=== PATIENT | male | born 1935 | race Caucasian/White ===

== ENCOUNTER 2016-11-05 14:21 | Emergency (ER) | payer OTHER ==
[~2016-11-05] VITALS: Ht 175.3 cm; Wt 85.0 kg
[~2016-11-05 14:21] MED LIST: ACET-1256 PO; ASPI-428 PO; ATOR-24 PO; CHOL200010 PO; CYAN100020 PO; FAMOCHW27 PO; POLY335025 PO; WARF3TAB PO
[2016-11-05 14:24] VITALS: Ht 175.3 cm; Wt 85.0 kg
[2016-11-05] MEDS ORDERED: XYLOCAINE 1%/SOD BICARB 20 ML VIAL INFIL ONE (15:00)
--- NOTE | 2016-11-05 15:18 | DIAGNOSTIC IMAGING REPORT ---
LEFT FINGER(S) MIN 2 VIEWS ROUTINE CLINICAL HISTORY: L thumb injury - table saw kickback COMPARISON: None FINDINGS: There is dorsal dislocation of the distal phalanx of the left thumb with respect to the proximal phalanx. There is an associated displaced fracture of the head of the proximal phalanx with an associated 1 cm bone fragment. There may be several smaller fracture fragments. IMPRESSION: Dorsal dislocation of the interphalangeal joint of the left thumb with associated displaced fracture of the head of the proximal phalanx. Electronically signed by: Maikol Dover M.D. 11/05/2016 3:17 PM Dictated Date/Time: 11/05/2016 3:15 PM
[2016-11-05 15:19] LABS: INR 2.4 (0.9-1.1); PROTHROMBIN TIME (PATIENT) 26.8 SECONDS (9.0-12.0)
--- NOTE | 2016-11-05 15:33 | EMERGENCY ROOM VISIT NOTE ---
ED Visit Note First contact with patient: 14:44 I did evaluate and examine this patient myself. I did guide management for the patient. I agree with the APC's assessment as discussed. Please see the APC's dictation for further details. I did independently review the x-rays and blood work. His INR is therapeutic. His x-ray demonstrates a fracture dislocation. His wound was repaired and the dislocation reduced. He will follow up closely with orthopedics.
[2016-11-05] MEDS ORDERED: FAMOTIDINE 20 MG TAB PO ONE (15:45)
[2016-11-05] MEDS ORDERED: CEPHALEXIN MONOHYDRATE 250 MG CAP PO ONE (16:00)
[2016-11-05] MEDS ORDERED: CEPH500C PO (16:00)
--- NOTE | 2016-11-05 16:25 | DIAGNOSTIC IMAGING REPORT ---
LEFT FINGER(S) MIN 2 VIEWS ROUTINE CLINICAL HISTORY: L thumb IP reduction COMPARISON: Thumb radiographs performed earlier today. FINDINGS: Improved alignment is noted at the level of the interphalangeal joint of the left thumb status post reduction. However, there is persistent subluxation. A fracture with intra-articular extension of the head of the proximal phalanx is noted. There may be a few additional punctate fracture fragments. IMPRESSION: Persistent mild subluxation but improved alignment of the interphalangeal joint of the left thumb status post reduction. Redemonstration of a fracture of the head of the proximal phalanx of the left thumb with intra-articular extension. Electronically signed by: Maikol Dover M.D. 11/05/2016 4:24 PM Dictated Date/Time: 11/05/2016 4:22 PM
[2016-11-05 17:04] VITALS: BP 155/77; PULSE 61; TEMP 36.6; O2SAT 92
--- NOTE | 2016-11-19 23:55 | EMERGENCY ROOM VISIT NOTE ---
History First contact with patient: 14:44 Chief Complaint: LACERATION/CUT (NON-SUTURE) Stated Complaint: STOVED AND LACERATED LEFT THUMB Nursing Triage Summary: pt here with left thumb lac after hitting it on a saw and piece of wood. History of Present Illness The patient is a 81 year old male who presents to the Emergency Room with complaints of an injury to his left thumb. The patient reports that he was using a table saw to cut wood when the wood angled on a table, causing it to kick back and hyperextended his thumb. The patient believes that the wound or saw never cut his finger, but that the skin split from the thumb being thrown back. The patient does report moderate bleeding from the wound. He is on Coumadin. His reports that his INR's are relatively stable, but is requesting that we recheck his INR today because of the swelling and bruising of the thumb. The patient denies any pain around the base of the thumb or hand. He reports mild paresthesias of the tip of the thumb. Tetanus immunization is up-to-date. The patient is [id number], and rates his discomfort a 4 out of 10. He did take Tylenol 1000 mg prior to arrival. Review of Systems 10 system review was performed and was negative except for pertinent positives and negatives as indicated in history of present illness Past Medical/Surgical History Medical Problems: (1) Higgins's Esophagus (2) Diaphragmatic Hernia (3) Diverticulosis Colon (W/O Ment Of Hemorrhage) (4) Enlarged Prostate Without Lower Urinary Tract Symptoms (5) History of DVT (deep vein thrombosis) (6) Hyperlipidemia, Unspecified (7) Hypertension Nos (8) Multiple Fractures Of Ribs, Right Side, Init For Clos Fx (9) Oth Fracture Of First Thoracic Vertebra, Init For Clos Fx (10) Traumatic Hemothorax, Initial Encounter (11) Vitamin D Deficiency, Unspecified Family History Diabetes mellitus Heart disease Social History Smoking Status: Never Smoker Marital Status: Housing Status: lives with significant other Occupation Status: employed Current/Historical Medications Scheduled Aspirin (Ecotrin Low Strength), 81 MG PO 3XWK Atorvastatin (Lipitor), 40 MG PO QPM Cephalexin Monohydrate (Keflex), 500 MG PO TID Cholecalciferol (Vitamin D), 2,000 UNITS PO QPM Warfarin Sodium (Coumadin), 3 MG PO DAILY Scheduled PRN Acetaminophen (Tylenol), 1,000 MG PO [id number] PRN for Pain Cyanocobalamin (Vitamin B12), 1,000 MCG PO for SUPPLEMENT Famotidine-Calcium Carbonate-M (Pepcid Complete), 1 TAB PO DAILY PRN for Heartburn Polyethylene Glycol 3350 (Miralax), 17 GM PO DAILY PRN for Constipation Allergies Coded Allergies: No Known Allergies (Unverified , 11/11/16) Physical Exam Vital Signs Date Time Temp Pulse Resp B/P (MAP) Pulse Ox O2 Delivery O2 Flow Rate FiO2 11/05/16 17:04 36.6 61 16 155/77 92 11/05/16 17:03 61 16 155/77 92 Room Air 11/05/16 14:24 36.6 62 16 173/80 92 Room Air Physical Exam CONSTITUTIONAL: Healthy and well nourished. Alert and oriented X 3 with positive affect. Patient does not appear in any acute distress. HEENT: Normocephalic, atraumatic. Pupils equal, round and reactive. NECK: Full active range of motion without discomfort. MUSCULOSKELETAL: Examination of the left thumb shows a 2 cm laceration along the radial aspect of the proximal phalanx. He has mild bleeding. The fingertip is edematous and ecchymotic with delayed capillary refill. The patient has no focal tenderness to palpation of the IP collateral ligaments or MCP region. INTEGUMENTARY: No rash or other significant dermatologic conditions noted. NEUROLOGIC: Left thumb tip is grossly sensory intact. Medical Decision & Procedures ER Provider Diagnostic Interpretation: My interpretation of left thumb x-rays shows a dorsal IP joint dislocation with associated fracture of the distal aspect of the proximal phalanx. Radiologist report is as follows: LEFT FINGER(S) MIN 2 VIEWS ROUTINE CLINICAL HISTORY: L thumb injury - table saw kickback COMPARISON: None FINDINGS: There is dorsal dislocation of the distal phalanx of the left thumb with respect to the proximal phalanx. There is an associated displaced fracture of the head of the proximal phalanx with an associated 1 cm bone fragment. There may be several smaller fracture fragments. IMPRESSION: Dorsal dislocation of the interphalangeal joint of the left thumb with associated displaced fracture of the head of the proximal phalanx. Post reduction x-ray shows a mild persistent IP subluxation with intra- articular fracture of the head of the proximal phalanx.. Radiologist report is as follows: LEFT FINGER(S) MIN 2 VIEWS ROUTINE CLINICAL HISTORY: L thumb IP reduction COMPARISON: Thumb radiographs performed earlier today. FINDINGS: Improved alignment is noted at the level of the interphalangeal joint of the left thumb status post reduction. However, there is persistent subluxation. A fracture with intra-articular extension of the head of the proximal phalanx is noted. There may be a few additional punctate fracture fragments. IMPRESSION: Persistent mild subluxation but improved alignment of the interphalangeal joint of the left thumb status post reduction. Redemonstration of a fracture of the head of the proximal phalanx of the left thumb with intra-articular extension. Laboratory Results Test 11/05/16 15:05 Prothrombin Time 26.8 SECONDS (9.0-12.0) Prothromb Time International Ratio 2.4 (0.9-1.1) Medications Administered Medications (Trade) Dose Ordered Sig/Js Route Start Time Stop Time Status Last Admin Dose Admin Famotidine (Pepcid Tab) 20 mg NOW ONCE PO 11/05/16 15:45 11/05/16 15:46 DC 11/05/16 15:38 20 MG Cephalexin Monohydrate (Keflex Cap) 500 mg NOW ONCE PO 11/05/16 16:00 11/05/16 16:01 DC 11/05/16 16:14 500 MG Procedure Thumb laceration repair was performed under digital block anesthesia after receiving verbal consent from the patient. Using buffered 1% lidocaine without epinephrine, good digital block anesthesia was administered. The wound was then peripherally cleansed with iodine, then copiously pressure irrigated with 150 mL of normal saline. Exploration of the wound does not show any foreign debris. The wound was then grossly approximated using 4-0 nylon simple interrupted sutures. A bacitracin pressure dressing was applied. ED Course Patient history and physical exam were performed. Nurse's notes were reviewed. Vital signs were reviewed and normal. The patient refused any analgesics. Labs were drawn with an INR of 2.4. X-rays of the left thumb confirms an IVP dislocation with fracture of the head of the proximal phalanx. Left thumb laceration repair was performed under digital block anesthesia. I. Adduction was performed with post reduction x-ray showing a mild persistent subluxation and intra-articular extension of the proximal phalanx. The patient was instructed to keep the wound clean and dry. The patient was provided additional verbal and written wound care instructions. Ice and elevation for swelling. Tylenol as needed for pain. The patient refused any stronger prescription analgesics. The patient was provided a prescription for Keflex, and instructed to follow-up with Dr. Wheeler for further reevaluation and management. The patient was happy with plan of care, voiced understanding of all discharge instructions, and denied any pain at the time of discharge. The patient was also seen and examined by Dr. Landrum, ED attending physician, who agrees with workup and plan of care. Medical Decision Impression Primary Impression: Open fracture dislocation of interphalangeal joint of left thumb Departure Information Prescriptions Cephalexin Monohydrate (Keflex) 500 Mg Cap 500 MG PO TID, #21 CAP Prov: Keagan Mercer PA 11/05/16 Referrals Ray Wu M.D. (PCP) Patient Instructions [facility] Problem Qualifiers Primary Impression: Open fracture dislocation of interphalangeal joint of left thumb Encounter type: initial encounter Qualified Codes: S62.502B - Fracture of unspecified phalanx of left thumb, initial encounter for open fracture
== END 2016-11-05 17:04 | disposition home or self-care (01) ==
LOC: C.EDB 14:24 → C.EDD 17:04
DX: S62.522B Displaced fracture of distal phalanx of left thumb, initial encounter for open fracture (principal); W22.8XXA Striking against or struck by other objects, initial encounter; K22.70 Barrett's esophagus without dysplasia; K57.30 Diverticulosis of large intestine without perforation or abscess without bleeding; N40.0 Benign prostatic hyperplasia without lower urinary tract symptoms; Z86.718 Personal history of other venous thrombosis and embolism; E78.5 Hyperlipidemia, unspecified; I10 Essential (primary) hypertension; E55.9 Vitamin D deficiency, unspecified; Z83.3 Family history of diabetes mellitus; Z82.49 Family history of ischemic heart disease and other diseases of the circulatory system; Z79.01 Long term (current) use of anticoagulants; Z79.82 Long term (current) use of aspirin; Z79.899 Other long term (current) drug therapy

== ENCOUNTER → 2016-11-11 | Day surgery (SDC) | payer OTHER ==
[2016-11-09 15:38] LABS: BASO % 0.5 %; BASO ABS # 0.03 K/uL (0-0.2); COMPLETE YES; EOS % 2.4 %; HEMATOCRIT 40.8 % (42-52); IG% 0.2 %; LYMPH % 30.8 %; LYMPH ABS # 1.69 K/uL (1.2-3.4); MEAN CELL VOLUME 93.2 fL (80-100); MEAN CORPUSCULAR HEMOGLOBIN 30.6 pg (25-34); MEAN CORPUSCULAR HGB CONC 32.8 g/dl (32-36); MEAN PLATELET VOLUME 8.8 fL (7.4-10.4); MONO % 13.9 %; NEUT % 52.2 %; PLATELET COUNT 194 K/uL (130-400); RED BLOOD COUNT 4.38 M/uL (4.7-6.1); WHITE BLOOD COUNT 5.48 K/uL (4.8-10.8)
--- NOTE | 2016-11-09 15:46 | DIAGNOSTIC IMAGING REPORT ---
TWO VIEW CHEST CLINICAL HISTORY: Preoperative examination. FINDINGS: PA and lateral chest radiographs are compared to study dated 04/04/2015 and correlated with chest CT dated 04/24/2015. The heart is enlarged and there is atherosclerotic calcification of the thoracic aorta. The pulmonary vasculature is noncongested. The lungs and pleural spaces are clear. There is no pneumothorax. The skeletal structures are osteopenic. There are healed right-sided rib fractures. IMPRESSION: Cardiac enlargement with no active disease in the chest. Electronically signed by: Edu Prieto M.D. 11/09/2016 3:45 PM Dictated Date/Time: 11/09/2016 3:37 PM
[2016-11-09 15:49] LABS: INR 2.2 (0.9-1.1); PARTIAL THROMBOPLASTIN RATIO 1.4; PROTHROMBIN TIME (PATIENT) 24.3 SECONDS (9.0-12.0)
[2016-11-09 16:06] LABS: BLOOD UREA NITROGEN 17 mg/dl (7-18); BUN/CREATININE RATIO 15.4 (10-20); CALCIUM 9.4 mg/dl (8.5-10.1); CARBON DIOXIDE 26 mmol/L (21-32); CHLORIDE 107 mmol/L (98-107); GLUCOSE 124 mg/dl (70-99); SODIUM 139 mmol/L (136-145)
[2016-11-10 18:05] VITALS: BMI 26.0
[~2016-11-11] VITALS: Ht 177.8 cm; Wt 84.0 kg
[~2016-11-11] MED LIST changes: +ACETAMINOPHEN 500 MG TAB PO SCH; +ATROPINE SULFATE 0.1 MG/ML 5ML SYR IV PRN; +BUPIVACAINE 0.25% 30 ML VIAL ONE; +CEFAZOLIN 2000 MG/60 ML D5W 60 ML IV SCH; +CEPH500C PO; +CONRAY 60% 50 ML VIAL ONE; +DEXAMETHASONE SOD INJ 4 MG/ML VIAL ONE; +EpHEDrine SULFATE INJ 50 MG/ML AMP IV PRN; +FENTANYL CITRATE INJ 50 MCG/1 ML 2 ML VIAL IV PRN; +FENTANYL CITRATE INJ 50 MCG/1 ML 2 ML VIAL ONE; +GLYCOPYRROLATE INJ 0.2 MG/ML VIAL ONE; +HYDROCODONE/ACETAMOPHEN 5/325MG TAB PO PRN; +HYDROmorphone INJ 1 MG/ML SYR IV PRN; +LACTATED RINGER'S 1000ML 1,000 ML IV SCH; +LIDOCAINE HCL 2% 2 ML VIAL (20MG/ML) ONE; +LIDOCAINE HCL 2% LOCAL 50ML VIAL ONE; +ONDANSETRON INJ 2 MG/ML 2 ML VIAL IV PRN; +ONDANSETRON INJ 2 MG/ML 2 ML VIAL ONE; +PROPOFOL IV EMULSION 10 MG/ML 20 ML VIAL IV ONE; +SODIUM CHLORIDE 0.9% 1000ML 1,000 ML IV SCH
[2016-11-11 05:35] VITALS: BP 156/79; PULSE 65; TEMP 36.6; O2SAT 97; Ht 177.8 cm; Wt 84.0 kg
[2016-11-11 06:06] LABS: INR 2.3 (0.9-1.1); PARTIAL THROMBOPLASTIN RATIO 1.4; PROTHROMBIN TIME (PATIENT) 25.6 SECONDS (9.0-12.0)
--- NOTE | 2016-11-11 06:46 | History and Physical ---
History & Physical Date Nov 11, 2016. Chief Complaint Fracture Dislocation Left Thumb History of Present Illness The patient is a 81 year old male with complaints of Past Medical/Surgical History Medical Problems: (1) Higgins's Esophagus (2) Diaphragmatic Hernia (3) Diverticulosis Colon (W/O Ment Of Hemorrhage) (4) Enlarged Prostate Without Lower Urinary Tract Symptoms (5) History of DVT (deep vein thrombosis) (6) Hyperlipidemia, Unspecified (7) Hypertension Nos (8) Multiple Fractures Of Ribs, Right Side, Init For Clos Fx (9) Oth Fracture Of First Thoracic Vertebra, Init For Clos Fx (10) Traumatic Hemothorax, Initial Encounter (11) Vitamin D Deficiency, Unspecified Additional History Hepatic Disease: No Endocrine Disorder: No Kidney Disease: No Hypertension: No Heart Disease: No Bleeding Tendencies: No Infectious Diseases: No Allergies Coded Allergies: No Known Allergies (Unverified , 11/11/16) Home Medications Scheduled Aspirin (Ecotrin Low Strength), 81 MG PO 3XWK Atorvastatin (Lipitor), 40 MG PO QPM Cephalexin Monohydrate (Keflex), 500 MG PO TID Cholecalciferol (Vitamin D), 2,000 UNITS PO QPM Warfarin Sodium (Coumadin), 3 MG PO DAILY Scheduled PRN Acetaminophen (Tylenol), 1,000 MG PO Q1T-D4E PRN for Pain Cyanocobalamin (Vitamin B12), 1,000 MCG PO for SUPPLEMENT Famotidine-Calcium Carbonate-M (Pepcid Complete), 1 TAB PO DAILY PRN for Heartburn Polyethylene Glycol 3350 (Miralax), 17 GM PO DAILY PRN for Constipation Physical Examination Skin: warm/dry, no rash Eyes: normal inspection, EOMI, sclerae normal ENT: normal ENT inspection, pharynx normal Head: normocephalic, atraumatic Neck: supple, no adenopathy, trachea midline Respiratory/Chest: lungs clear, normal breath sounds, no respiratory distress Cardiovascular: regular rate, rhythm, no edema, no murmur Abdomen / GI: normal bowel sounds, non tender Back: normal inspection Extremities: normal inspection, normal range of motion Neurologic/Psych: no motor/sensory deficits, alert, normal reflexes, oriented x 3 Diagnosis Fracture Dislocation Left Thumb Plan of Treatment Closed Reduction percutaneous pinning Left Thumb
--- NOTE | 2016-11-11 06:47 | History & Physical Bridge Note ---
H&P Re-Evaluation Bridge Note: I have examined the patient, reviewed the History & Physical and in the interval since the performance of the History & Physical I have noted the following changes of clinical significance: No changes noted
--- NOTE | 2016-11-11 07:39 | DIAGNOSTIC IMAGING REPORT ---
LEFT FINGER(S) MIN 2 VIEWS ROUTINE CLINICAL HISTORY: 81 years-old Male presenting with LEFT CLOSED REDUCTION WITH K-WIRE. TECHNIQUE: 2 fluoroscopic spot images were obtained as part of an intraoperative procedure. COMPARISON: 11/05/2016. FINDINGS/IMPRESSION: Interval pin fixation across the distal interphalangeal joint of the left thumb. Fracture of the head of the proximal phalanx of the left thumb is not as well-demonstrated on these fluoroscopic images. Please see separately dictated operative report for further details. Electronically signed by: John Thomas 11/11/2016 7:37 AM Dictated Date/Time: 11/11/2016 7:36 AM
--- NOTE | 2016-11-11 07:39 | Discharge Instructions ---
Discharge Instructions Date of Service Nov 11, 2016. Admission Reason for Admission: Open Fracture Thumb Proximal Phalanx Left Discharge Discharge Diagnosis / Problem: SAME ABOVE Discharge Goals Goal(s): Decrease discomfort, Improve function Activity Recommendations Activity Limitations: as noted below Lifting Limitations: until after follow-up appointment Exercise/Sports Limitations: until after follow-up appointment Shower/Bathe: keep incision dry . Instructions / Follow-Up Instructions / Follow-Up MEDICATIONS: * Resume previous medications unless instructed otherwise by your surgeon. * Always take pain medication on a full stomach or with food to avoid upset stomach. * Do not drink alcohol or drive while taking narcotics. * Ibuprofen or Tylenol may be taken if narcotic not needed. SPECIAL CARE INSTRUCTIONS: __ None _X_ Keep extremity elevated and iced x 48 hours; apply ice 20-30 minutes 8-10 times/day. May remove at night. __ Sling __24 hrs/day __ Remove at night __ Shoulder Immobilizer __ 24 hrs/day __ Remove at night _X_ Dressing _X_ Maintain until seen in office, may shower with plastic over site __ Remove dressings in 24-48 hours and then may shower __ Cover incisions with band-aids after showering __ Do not remove steri-strips Call physician if chills or temperature rises above 102 degrees or pain unrelieved by prescribed pain medications at . . Current Hospital Diet Patient's current hospital diet: Discharge Diet Recommended Diet: Regular Diet Fluid Restriction: None Procedures Procedures Performed: Left Closed Reduction with Percutaneous Pinning of Thumb, Pending Studies Studies pending at discharge: no Medical Emergencies . Who to Call and When: Medical Emergencies: If at any time you feel your situation is an emergency, please call 911 immediately. . Non-Emergent Contact Non-Emergency issues call your: Primary Care Provider Call Non-Emergent contact if: you have a fever, temperature is above 101.5 . "Provider Documentation" section prepared by Eh Gonsalez. . VTE Core Measure Inpt VTE Proph given/why not?: Treatment not indicated
--- NOTE | 2016-11-11 07:42 | [facility] Post Operative Brief Note ---
Immediate Operative Summary Operative Date Nov 11, 2016. Pre-Operative Diagnosis Fracture Dislocation Left Thumb Post-Operative Diagnosis Fracture Dislocation Left Thumb Procedure(s) Performed Left Closed Reduction with Percutaneous Pinning of Thumb, Surgeon Dr. Silas Sandoval Communication Analyst Surgeon(s) Dragan Gonsalez PA-C Estimated Blood Loss 5ml Findings as above Specimens None per surgeon Complication(s) None Disposition Recovery Room / PACU
--- NOTE | 2016-11-11 08:06 | Anesthesiology Progress Note ---
Anesthesia Post Op Note Date & Time Nov 11, 2016 at 08:06 Vital Signs Pain Intensity: 0 Vital Signs Past 12 Hours Date Time Temp Pulse Resp B/P (MAP) Pulse Ox O2 Delivery O2 Flow Rate FiO2 11/11/16 08:00 58 13 112/61 96 Room Air 11/11/16 07:50 56 13 105/68 94 Room Air 11/11/16 07:46 66 122/72 98 11/11/16 07:38 36.2 66 141/76 98 11/11/16 05:35 36.6 65 18 156/79 (104) 97 Room Air Notes Mental Status: alert / awake / arousable, participated in evaluation Pt Amnestic to Procedure: Yes Nausea / Vomiting: adequately controlled Pain: adequately controlled Airway Patency, RR, SpO2: stable & adequate BP & HR: stable & adequate Hydration State: stable & adequate Anesthetic Complications: no major complications apparent
[2016-11-11 08:32] VITALS: BP 134/63; PULSE 63; TEMP 36.6; O2SAT 95
[2016-11-11 08:55] VITALS: BP 143/67; PULSE 58; O2SAT 95
[2016-11-11 09:25] VITALS: BP 143/67; PULSE 56; TEMP 36.7; O2SAT 94
--- NOTE | 2016-11-15 14:37 | OPERATIVE REPORT ---
PREOPERATIVE DIAGNOSIS: Fracture dislocation of the left thumb IP joint. POSTOPERATIVE DIAGNOSIS: Same. PROCEDURE: Closed reduction and percutaneous pinning of the left IP joint and proximal phalanx. SURGEON: Dr. Silas Sandoval. ROLL FORMING SUPERVISOR: Dragan Gonsalez PA-C, whose assistance was necessary for helping hold the reduction and positioning the hand. ANESTHESIA: General. COMPLICATIONS: None. CONDITION: Stable to PACU. INDICATIONS: Sunil is a pleasant 81-year-old male who sustained an injury to his left thumb about 6 days ago. He had a fracture dislocation of the IP joint and went to the emergency room. He was placed in a splint and presented to my office. After reviewing the x-rays we decided to proceed with closed reduction and a percutaneous pinning. On November 11, 2016, he arrived at [facility] for the above procedure. He was seen in the preoperative holding area and the operative extremity was identified and signed. He was given a preoperative antibiotic, taken back to the operating room, laid on the table in the supine position, and put under general anesthesia. The left hand was then prepped and draped in sterile fashion. Time-out was done. The patient and operative extremity was properly identified. Fluoroscopy was brought in and the IP joint was easily reduced. A single K-wire was placed percutaneously through the fracture fragment and into the shaft of the proximal phalanx. Appropriate placement was checked on orthogonal fluoroscopic images. Final x-rays were then taken. I was happy with the alignment and the reduction. The pin was then cut and he was placed in a splint. He was then extubated, transferred to a [facility] and taken to the postanesthesia care unit in stable condition. He tolerated the procedure well.
== END | disposition home or self-care (01) ==
LOC: C.ACU 05:00
PROVIDERS: ATTEND Orthopaedic Surgery
DX: S62.512A Displaced fracture of proximal phalanx of left thumb, initial encounter for closed fracture (principal); X58.XXXA Exposure to other specified factors, initial encounter; I10 Essential (primary) hypertension; E78.5 Hyperlipidemia, unspecified; E55.9 Vitamin D deficiency, unspecified; K22.70 Barrett's esophagus without dysplasia; K44.9 Diaphragmatic hernia without obstruction or gangrene; N40.0 Benign prostatic hyperplasia without lower urinary tract symptoms; Z86.718 Personal history of other venous thrombosis and embolism; Z79.01 Long term (current) use of anticoagulants; Z79.82 Long term (current) use of aspirin; Z79.899 Other long term (current) drug therapy

== ENCOUNTER → 2016-11-19 | Outpatient (CLI) | payer OTHER ==
[~2016-11-19] MED LIST changes: -ACETAMINOPHEN 500 MG TAB PO SCH; -ATROPINE SULFATE 0.1 MG/ML 5ML SYR IV PRN; -BUPIVACAINE 0.25% 30 ML VIAL ONE; -CEFAZOLIN 2000 MG/60 ML D5W 60 ML IV SCH; -CONRAY 60% 50 ML VIAL ONE; -DEXAMETHASONE SOD INJ 4 MG/ML VIAL ONE; -EpHEDrine SULFATE INJ 50 MG/ML AMP IV PRN; -FENTANYL CITRATE INJ 50 MCG/1 ML 2 ML VIAL IV PRN; -FENTANYL CITRATE INJ 50 MCG/1 ML 2 ML VIAL ONE; -GLYCOPYRROLATE INJ 0.2 MG/ML VIAL ONE; -HYDROCODONE/ACETAMOPHEN 5/325MG TAB PO PRN; -HYDROmorphone INJ 1 MG/ML SYR IV PRN; -LACTATED RINGER'S 1000ML 1,000 ML IV SCH; -LIDOCAINE HCL 2% 2 ML VIAL (20MG/ML) ONE; -LIDOCAINE HCL 2% LOCAL 50ML VIAL ONE; -ONDANSETRON INJ 2 MG/ML 2 ML VIAL IV PRN; -ONDANSETRON INJ 2 MG/ML 2 ML VIAL ONE; -PROPOFOL IV EMULSION 10 MG/ML 20 ML VIAL IV ONE; -SODIUM CHLORIDE 0.9% 1000ML 1,000 ML IV SCH
--- NOTE | 2016-11-19 11:05 | DIAGNOSTIC IMAGING REPORT ---
LEFT WRIST MIN 3 VIEWS ROUTINE CLINICAL HISTORY: LEFT WRIST PAIN pain COMPARISON: None. DISCUSSION: Moderate degenerative change of the first carpometacarpal joint. Mild degenerative change of the intercarpal region. No acute bony abnormality. Mild soft tissue edema. No evidence for fracture or dislocation. IMPRESSION: Mild/moderate degenerative change. Mild soft tissue edema. No acute bony abnormality. The above report was generated using voice recognition software. It may contain grammatical, syntax or spelling errors. Electronically signed by: Danielito Gordon M.D. 11/19/2016 11:04 AM Dictated Date/Time: 11/19/2016 11:03 AM
== END | disposition home or self-care (01) ==
LOC: C.RAD 10:34
PROVIDERS: ATTEND Physician Assistant
DX: M25.532 Pain in left wrist (principal)

== ENCOUNTER → 2016-12-20 | Outpatient (CLI) | payer OTHER ==
[2016-12-20 17:39] LABS: BASO % 0.8 %; BASO ABS # 0.04 K/uL (0-0.2); COMPLETE YES; EOS % 2.5 %; HEMATOCRIT 39.3 % (42-52); LYMPH % 33.3 %; MEAN CORPUSCULAR HEMOGLOBIN 30.1 pg (25-34); MEAN CORPUSCULAR HGB CONC 32.1 g/dl (32-36); MEAN PLATELET VOLUME 9.5 fL (7.4-10.4); MONO % 11.4 %; PLATELET COUNT 189 K/uL (130-400); RED BLOOD COUNT 4.18 M/uL (4.7-6.1)
[2016-12-20 17:47] LABS: BLOOD UREA NITROGEN 21 mg/dl (7-18); BUN/CREATININE RATIO 21.1 (10-20); CALCIUM 8.8 mg/dl (8.5-10.1); CARBON DIOXIDE 24 mmol/L (21-32); CHLORIDE 108 mmol/L (98-107); GLUCOSE 129 mg/dl (70-99); POTASSIUM 3.9 mmol/L (3.5-5.1); SODIUM 139 mmol/L (136-145); URIC ACID 5.8 mg/dl (2.6-7.2)
[2016-12-20 17:58] LABS: ALB/GLOB RATIO 0.9 (0.9-2); ALKALINE PHOSPHATASE 88 U/L (45-117); ALT/SGPT 34 U/L (12-78); AST/SGOT 33 U/L (15-37); CHOLESTEROL 130 mg/dl (0-200); CHOLESTEROL/HDL RATIO 2.4; FERRITIN 159.5 ng/ml (8.0-388.0); HDL CHOLESTEROL 54 mg/dl; LDL CHOLESTEROL CALCULATED 51 mg/dl; TRIGLYCERIDES 125 mg/dl (0-150); VERY LOW DENSITY LIPOPROT CALC 25 mg/dl
[2016-12-21 07:00] LABS: ESTIMATED AVERAGE GLUCOSE 131 mg/dl; HA1C FLAG Normal (Normal)
--- NOTE | 2016-12-27 06:18 | CODING QUERY MEDICAL NECESSITY ---
SUPPORTING DIAGNOSIS NEEDED Dr. Wu, A supporting diagnosis is required for the test/procedure performed on this patient in order for us to be reimbursed by the patient's insurance. Please provide a supporting diagnosis for the following test/procedure listed below next to the test name along with your signature. *If there is no additional diagnosis for this patient that would support the following test/procedure please document that below next to the test/procedure. Test(s)/Procedure(s) that require a supporting diagnosis: * ([id number]) B12 VITAMIN LEVEL DIAGNOSIS: DATE OF SERVICE: 12/20/16 Provider Signature: Date: Thank you Zelalem Lam [facility] Information Management Once completed, please kindly fax back to [phone] For questions please call [phone]
== END | disposition home or self-care (01) ==
LOC: C.LABPBG 13:41
PROVIDERS: ATTEND Internal Medicine Geriatric Medicine
DX: R73.9 Hyperglycemia, unspecified (principal); D64.9 Anemia, unspecified; E78.5 Hyperlipidemia, unspecified; E55.9 Vitamin D deficiency, unspecified; M10.9 Gout, unspecified

== ENCOUNTER → 2017-06-23 | Outpatient (CLI) | payer OTHER ==
[~2017-06-23] MED LIST changes: -CEPH500C PO
[2017-06-23 13:33] LABS: BASO % 1.1 %; BASO ABS # 0.05 K/uL (0-0.2); EOS % 2.6 %; EOS ABS # 0.12 K/uL (0-0.5); HEMATOCRIT 39.3 % (42-52); HEMOGLOBIN 13.4 g/dL (14.0-18.0); LYMPH % 32.4 %; LYMPH ABS # 1.48 K/uL (1.2-3.4); MEAN CELL VOLUME 94.5 fL (80-100); MEAN CORPUSCULAR HEMOGLOBIN 32.2 pg (25-34); MEAN CORPUSCULAR HGB CONC 34.1 g/dl (32-36); MEAN PLATELET VOLUME 9.6 fL (7.4-10.4); MONO % 16.4 %; MONO ABS # 0.75 K/uL (0.11-0.59); NEUT % 47.5 %; NEUT ABS # 2.17 K/uL (1.4-6.5); PLATELET COUNT 169 K/uL (130-400); RED CELL DISTRIBUTION WIDTH CV 13.2 % (11.5-14.5); RED CELL DISTRIBUTION WIDTH SD 45.7 fL (36.4-46.3); WHITE BLOOD COUNT 4.57 K/uL (4.8-10.8)
[2017-06-23 13:43] LABS: ALBUMIN 3.9 gm/dl (3.4-5.0); ALT/SGPT 56 U/L (12-78); AST/SGOT 60 U/L (15-37); BLOOD UREA NITROGEN 17 mg/dl (7-18); CALCIUM 9.5 mg/dl (8.5-10.1); CARBON DIOXIDE 27 mmol/L (21-32); CREATININE 1.27 mg/dl (0.60-1.40); GLUCOSE 93 mg/dl (70-99); POTASSIUM 3.9 mmol/L (3.5-5.1); SODIUM 137 mmol/L (136-145)
[2017-06-23 13:58] LABS: ALKALINE PHOSPHATASE 87 U/L (45-117); TOTAL PROTEIN 7.9 gm/dl (6.4-8.2)
[2017-06-26 11:05] LABS: BETA-2-MICROGLOBULIN 852 2.87 MG/L (0.00-2.51)
== END | disposition home or self-care (01) ==
LOC: C.LABPBG 10:00
PROVIDERS: ATTEND Internal Medicine Hematology & Oncology
DX: D64.9 Anemia, unspecified (principal)

== ENCOUNTER 2017-12-26 16:20 | Emergency (ER) | payer OTHER ==
[~2017-12-26] VITALS: Ht 175.3 cm; Wt 84.0 kg
[2017-12-26 16:29] VITALS: TEMP 36.4; Ht 175.3 cm; Wt 84.0 kg
--- NOTE | 2017-12-26 17:09 | EMERGENCY ROOM VISIT NOTE ---
History Report prepared by Devante: Hans Bridges Under the Supervision of: Dr. Jaden Badillo M.D. First contact with patient: 16:33 Chief Complaint: CONSTIPATION Stated Complaint: BOWL PROBLEM Nursing Triage Summary: pt arrives reporting trouble with bowel movements and minimal urination reports pt was given enemas, mag citrate, and suppositories pt reports feeling "rumblings in my stomach." History of Present Illness The patient is a 82 year old white male with a history of Diaphragmatic Hernia, Diverticulosis, Enlarged Prostate, HTN, Hyperlipidemia, and DVT who presents to the Emergency Room with complaints of constipation x1 week. The patient states he has been constipated over the last week. He notes he has tried stool softeners and manual disimpaction, with minimal relief. He notes he does produce some liquid stool, but denies any solid bowel movements. The patient denies abdominal pain, fever, chills, nausea, vomiting, or any other complaints. Source of History: patient Onset: x1 week Symptom Intensity: moderate Timing: constant Associated Symptoms: No fevers, No chills, No nausea, No vomiting, No abdominal pain, No diarrhea, No urinary symptoms Review of Systems See HPI for pertinent positives and negatives. A total of ten systems were reviewed and were otherwise negative. Constitutional: No fever, No chills Abdomen: + constipation, No pain, No nausea, No vomiting, No diarrhea Past Medical & Surgical Medical Problems: (1) Higgins's Esophagus (2) Diaphragmatic Hernia (3) Diverticulosis Colon (W/O Ment Of Hemorrhage) (4) Enlarged Prostate Without Lower Urinary Tract Symptoms (5) History of DVT (deep vein thrombosis) (6) Hyperlipidemia, Unspecified (7) Hypertension Nos (8) Multiple Fractures Of Ribs, Right Side, Init For Clos Fx (9) Oth Fracture Of First Thoracic Vertebra, Init For Clos Fx (10) Traumatic Hemothorax, Initial Encounter (11) Vitamin D Deficiency, Unspecified Family History Diabetes mellitus Heart disease Social History Smoking Status: Never Smoker Marital Status: Housing Status: lives with significant other Occupation Status: employed Current/Historical Medications Scheduled Aspirin (Ecotrin Low Strength), 81 MG PO 3XWK Atorvastatin (Lipitor), 40 MG PO QPM Cholecalciferol (Vitamin D), 2,000 UNITS PO QPM Warfarin Sodium (Coumadin), 3 MG PO DAILY Scheduled PRN Acetaminophen (Tylenol), 1,000 MG PO [id number] PRN for Pain Cyanocobalamin (Vitamin B12), 1,000 MCG PO for SUPPLEMENT Famotidine-Calcium Carbonate-M (Pepcid Complete), 1 TAB PO DAILY PRN for Heartburn Polyethylene Glycol 3350 (Miralax), 17 GM PO DAILY PRN for Constipation Allergies Coded Allergies: No Known Allergies (Unverified , 12/26/17) Physical Exam Vital Signs Date Time Temp Pulse Resp B/P (MAP) Pulse Ox O2 Delivery O2 Flow Rate FiO2 12/26/17 19:51 101 18 150/80 95 12/26/17 17:55 91 18 155/93 95 Room Air 12/26/17 16:29 36.4 90 20 159/88 96 Room Air Physical Exam GENERAL: Awake, alert, well-appearing, NAD HENT: Normocephalic, atraumatic. EYES: Normal conjunctiva. Sclera non-icteric. PERRL. No anisocoria. NECK: Supple. No nuchal rigidity. FROM. RESPIRATORY: CTAB, no rhonchi, wheezing, crackles CARDIAC: RRR, no MRG ABDOMEN: Soft, NTND, BS+ MSK: No chest wall TTP, no LE edema NEURO: GCS 15, CN 2-12 intact, moves all 4s on command SKIN: No rash or jaundice noted. RECTAL: large quantity of hard-formed stool in the vault which was removed; no gross blood; no dark or tarry stool. Medical Decision & Procedures ER Provider Diagnostic Interpretation: Radiology results as stated below per my review and radiologist interpretation: KUB CLINICAL HISTORY: Constipation. FINDINGS: 2 AP supine abdominal radiographs are correlated with abdominal CT dated 04/04/2015. There is a nonobstructed abdominal bowel gas pattern. No evidence of intraperitoneal free air is seen on these supine images. There is moderate constipation with rectosigmoid fecal impaction. There are no abnormal abdominal calcifications. Phleboliths are observed in the pelvis. The skeletal structures are osteopenic. There is moderate lumbar sacral spondylosis and scoliosis. IMPRESSION: Nonobstructed abdominal bowel gas pattern. Medications Administered Medications (Trade) Dose Ordered Sig/Js Route Start Time Stop Time Status Last Admin Dose Admin Senna/Docusate Sodium (Senokot S Tab) 1 tab NOW ONCE PO 12/26/17 18:30 8/21/18 18:31 DC 12/26/17 18:46 1 TAB Magnesium Citrate (Citrate Of Magnesia Soln) 296 ml ONE STAT PO 12/26/17 18:17 12/26/17 18:19 DC 12/26/17 18:46 296 ML Metoclopramide HCl (Reglan Tab) 5 mg NOW ONCE PO 12/26/17 18:30 18 18:31 DC 12/26/17 18:46 5 MG Sodium Biphosphate/ Sodium Phosphate (Fleet Enema) 132 ml NOW STAT TN 12/26/17 18:17 12/26/17 18:19 DC 12/26/17 18:46 132 ML Medical Decision Nursing notes reviewed. Ancillary studies and prior records reviewed. The patient is a 82 year old white male with a history of Diaphragmatic Hernia, Diverticulosis, Enlarged Prostate, HTN, Hyperlipidemia, and DVT who presents to the Emergency Room with complaints of constipation x1 week. Differential diagnosis: Etiologies such as functional constipation, impaction, obstruction, volvulus, metabolic abnormality, infection, neurologic, as well as others were entertained. Patient was seen and evaluated the bedside. The patient is has had some constipation type symptoms 1 week. The patient has been passing some liquid stool but not well formed solid stool. The patient denies any prior history of abdominal surgery. The patient is still passing gas. On exam the patient does not have any abdominal distention or abdominal pain. The patient did have a rectal exam completed which did show formed hard stool a fair amount of which was removed. No bloody stool and no dark tarry stool. The patient did attempt to have a bowel movement but was unable to do so with a complete solid stool so the patient was given medications and a KUB was obtained. I do not believe that he requires other blood work at this time as he is stable vital signs lax pain has a fairly unremarkable abdominal exam and does have a reason for his constipation which is the formed stool. The patient states he has had a colonoscopy in the past without any acute issues. Patient's KUB does show an unremarkable bowel gas pattern. No obvious evidence of obstruction. I did revisit the patient the patient was still feeling well but was unable to have a well formed stool. I did discuss following up with the PCP for possible gastroenterology referral for referral for a colonoscopy. I did give follow-up and warning signs for which to return if he does have them which included but were not limited to worsening abdominal pain, obstipation, constipation, fever, chills. Patient and family were agreed with the plan of care. All questions were answered. Patient was given strict follow-up, discharge, and return precautions. All questions were answered. Patient was deemed suitable for outpatient follow-up at this time. Patient agreed with the plan of care and was safely discharged home. Medication Reconcilliation Current Medication List: was personally reviewed by me Blood Pressure Screening Patient's blood pressure: Elevated blood pressure Blood pressure disposition: Referred to PCP Impression Primary Impression: Constipation Scribe Attestation The scribe's documentation has been prepared under my direction and personally reviewed by me in its entirety. I confirm that the note above accurately reflects all work, treatment, procedures, and medical decision making performed by me. Departure Information Dispostion Home / Self-Care Referrals Ray Wu M.D. (PCP) Patient Instructions Diet High Fiber Dc, ED Constipation, My [facility] Additional Instructions Please return to the emergency department if you have worsening or recurrent symptoms not amenable to at-home treatment. Please call for a follow-up appointment with her primary care physician. Please take your medications as prescribed. If you have other concerns and/or complaints please feel free to also call your primary care physician's office or return the ED for further evaluation, management, and treatment. You may take tylenol 650 mg every 6 hours as needed for pain/fever unless told by your physician to not take it or have liver problems. For constipation please consider hydrating liberally with clear liquids, high- fiber diet, leafy greens. Please avoid antihistamines and narcotic medications. You may also consider stool softeners like docusate and senna, laxatives like magnesium citrate or lactulose, suppositories, and/or enemas. Please follow-up with your primary care physician's office and he may discuss referral to gastroenterology for possible colonoscopy. Take your medications as prescribed. You have been examined and treated today on an emergency basis only. This is not a substitute for, or an effort to provide, complete comprehensive medical care. It is impossible to recognize and treat all injuries or illnesses in a single emergency department visit. It is therefore important that you follow up closely with [facility], your PCP, and/or your specialist(s). Call as soon as possible for an appointment. Thank you for your time and consideration. I look forward to speaking with you again soon. Please don't hesitate to call us if you have any questions. Problem Qualifiers Primary Impression: Constipation Constipation type: unspecified constipation type Qualified Codes: K59.00 - Constipation, unspecified
[2017-12-26] MEDS ORDERED: MAGNESIUM CITRATE 296 ML/BTL PO STA (18:17)
[2017-12-26] MEDS ORDERED: SOD PHOSPHATE/SOD BIPHOSPHATE ENEMA 132 ML BTL PR STA (18:17)
[2017-12-26] MEDS ORDERED: METOCLOPRAMIDE HCL 5 MG TAB PO ONE (18:30)
[2017-12-26] MEDS ORDERED: DOCUSATE SODIUM/SENNA 50/8.6MG TAB PO ONE (18:30)
--- NOTE | 2017-12-26 18:40 | DIAGNOSTIC IMAGING REPORT ---
KUB CLINICAL HISTORY: Constipation. FINDINGS: 2 AP supine abdominal radiographs are correlated with abdominal CT dated 04/04/2015. There is a nonobstructed abdominal bowel gas pattern. No evidence of intraperitoneal free air is seen on these supine images. There is moderate constipation with rectosigmoid fecal impaction. There are no abnormal abdominal calcifications. Phleboliths are observed in the pelvis. The skeletal structures are osteopenic. There is moderate lumbar sacral spondylosis and scoliosis. IMPRESSION: Nonobstructed abdominal bowel gas pattern. Electronically signed by: Edu Prieto M.D. 12/26/2017 6:39 PM Dictated Date/Time: 12/26/2017 6:38 PM
[2017-12-26 19:51] VITALS: BP 150/80; PULSE 101; O2SAT 95
== END 2017-12-26 19:54 | disposition home or self-care (01) ==
LOC: C.EDB 16:22 → C.EDC 19:54
DX: K59.00 Constipation, unspecified (principal); K22.70 Barrett's esophagus without dysplasia; K44.9 Diaphragmatic hernia without obstruction or gangrene; K57.90 Diverticulosis of intestine, part unspecified, without perforation or abscess without bleeding; N40.0 Benign prostatic hyperplasia without lower urinary tract symptoms; I10 Essential (primary) hypertension; E78.5 Hyperlipidemia, unspecified; Z86.718 Personal history of other venous thrombosis and embolism; E55.9 Vitamin D deficiency, unspecified; Z79.82 Long term (current) use of aspirin; Z79.01 Long term (current) use of anticoagulants; Z79.899 Other long term (current) drug therapy

== ENCOUNTER → 2017-12-28 | Outpatient (CLI) | payer OTHER ==
[2017-12-28 14:32] LABS: BASO % 0.6 %; BASO ABS # 0.04 K/uL (0-0.2); EOS % 1.8 %; EOS ABS # 0.12 K/uL (0-0.5); HEMATOCRIT 37.4 % (42-52); HEMOGLOBIN 12.6 g/dL (14.0-18.0); IG# 0.02 K/uL (0.00-0.02); LYMPH % 27.6 %; LYMPH ABS # 1.87 K/uL (1.2-3.4); MEAN CELL VOLUME 94.2 fL (80-100); MEAN CORPUSCULAR HEMOGLOBIN 31.7 pg (25-34); MEAN CORPUSCULAR HGB CONC 33.7 g/dl (32-36); MEAN PLATELET VOLUME 9.2 fL (7.4-10.4); MONO % 13.7 %; MONO ABS # 0.93 K/uL (0.11-0.59); PLATELET COUNT 179 K/uL (130-400); RED CELL DISTRIBUTION WIDTH CV 13.4 % (11.5-14.5); RED CELL DISTRIBUTION WIDTH SD 46.3 fL (36.4-46.3); WHITE BLOOD COUNT 6.78 K/uL (4.8-10.8)
[2017-12-28 16:23] LABS: BLOOD UREA NITROGEN 34 mg/dl (7-18); CALCIUM 8.8 mg/dl (8.5-10.1); CARBON DIOXIDE 25 mmol/L (21-32); CHOLESTEROL 114 mg/dl (0-200); CREATININE 1.19 mg/dl (0.60-1.40); GLUCOSE 84 mg/dl (70-99); LDL CHOLESTEROL CALCULATED 39 mg/dl; POTASSIUM 4.3 mmol/L (3.5-5.1); SODIUM 138 mmol/L (136-145)
[2017-12-29 05:45] LABS: HEMOGLOBIN A1C 6.1 % (4.5-5.6)
== END | disposition home or self-care (01) ==
LOC: C.LAB 13:20
PROVIDERS: ATTEND Internal Medicine Hematology & Oncology
DX: D64.9 Anemia, unspecified (principal); R73.9 Hyperglycemia, unspecified; E78.5 Hyperlipidemia, unspecified; I82.409 Acute embolism and thrombosis of unspecified deep veins of unspecified lower extremity; D47.2 Monoclonal gammopathy

== ENCOUNTER 2022-08-31 17:13 | Inpatient (IN) ==
--- NOTE | 2022-08-31 17:21 | ED Triage Note ---
Date of Service August 31, 2022 History of Present Illness This patient was briefly evaluated while in triage. An abbreviated physical exam was performed. This patient is a 87-year-old Male who presents to the ED for evaluation of starting at 1400-blurry vision, weak legs, chest heaviness, feels shaky elevated BP readings at home Called PCP and sent here Hx of Parkinsons, DVT on warfarin, dyslipidemia, HTN, Physical Exam GENERAL: NAD, ambulatory into triage with shuffling gait CARDIOVASCULAR: RRR RESPIRATORY: CTA ABDOMEN: BS x 4. Nontender to palpation. NEURO: clear speech, no facial droop, no obvious extremity weakness Initial orders for labs and / or imaging were placed and patient was placed in the waiting area until a bed is available. Please see further documentation for the full ED course.
[2022-08-31 17:52] LABS: Basophils # (auto) 0.06 K/uL (0-0.2); Eosinophils # (auto) 0.09 K/uL (0-0.50); Eosinophils % (auto) 1.5 %; Hematocrit (blood only) 37.9 % (42.0-52.0); Hemoglobin 12.9 g/dl (14.0-18.0); Immature Granulocytes # (auto) 0.01 K/uL (0.01-0.20); Immature Granulocytes % (auto) 0.2 %; Lymphocytes # (auto) 1.77 K/uL (1.2-3.4); Lymphocytes % (auto) 28.9 %; Mean Platelet Volume 9.2 fL (9.4-12.4); Monocytes # (auto) 0.73 K/uL (0.11-0.59); Monocytes % (auto) 11.9 %; Neutrophils # (auto) 3.47 K/uL (1.40-6.50); Neutrophils % (auto) 56.5 %; Platelet Count 184 K/uL (130-400); RDW Coefficient of Variation 12.8 % (11.5-14.5); RDW Standard Deviation 44.2 fL (36.4-46.3); Red Blood Count 4.03 M/uL (4.70-6.10); White Blood Count 6.13 K/ul (4.8-10.8)
[2022-08-31 18:04] LABS: Albumin Globulin Ratio 1.1 (0.9-2); Albumin Level 4.3 gm/dl (3.4-5.0); BUN Creatinine Ratio 11.6 (10-20); Bilirubin,Total 0.6 mg/dl (0.2-1.0); Calcium 9.7 mg/dl (8.6-10.3); Creatinine Clr Calc Pharmacy 40.2 ml/min; Est GFR (Non-African American) 53.5 ml/min; Globulin 3.8 gm/dl (2.5-4.0); Magnesium 1.8 mg/dl (1.7-2.4); Total Protein 8.1 gm/dl (6.0-8.3)
[2022-08-31 18:08] LABS: Troponin I High Sensitivity 12.5 pg/ml (0-20)
[2022-08-31 18:19] LABS: INR 2.9 (0.9-1.1); Partial Thromboplastin Ratio 1.3; Partial Thromboplastin Time 37.2 Seconds (21.0-31.0); Prothrombin Time 29.3 Seconds (9.0-12.0)
--- NOTE | 2022-08-31 18:34 | Emergency Department Note ---
Impression & Plan Blurred vision, Hypertension, Stroke-like symptoms, Internal carotid artery stenosis ED Provider Note INFORMANT: Patient and family ED PROVIDER(S): Simon Glass MD CHIEF COMPLAINT: Visual disturbance PLAN: Disposition: Admitted Condition: Good Outpatient prescription management: none Referral: None MEDICAL DECISION MAKING: Patient presented because of visual disturbance, feeling weak and shaky. A work-up was initiated. His CBC, chemistry panel, and LFTs were unremarkable except for mild elevation of AST which was essentially unchanged. Patient is anticoagulated adequately at 2.9 with his INR. His ECG showed a normal rhythm. The patient underwent CT and CT angiography. He was found to have pretty significant stenosis of his left and right internal carotid arteries a greater than 80% bilaterally. Record review indicates 2 years ago that the patient had a significant left-sided stenosis at 70% but it is now worsened and the right side is new. I discussed the case with his neurologist, Dr. Morales. He recommended the patient have a stroke work-up in the hospital here. Consultation was made with Dr. Nilson Lewis of the [facility] service. Patient was evaluated in the ER for further management. After review of the information above and other included data, I feel the patient requires further management in the hospital. Triage Nursing notes reviewed and agree them. Vital Signs: reviewed and remarkable for hypertension Prior /Outside records reviewed: none Differential diagnosis: CVA, TIA, complication of Parkinson disease, infection, dehydration, metabolic abnormality, hypo/hyperglycemia, electrolyte disturbance, anemia, hypoxia, cardiac sources, intracerebral event, toxicologic, neurologic, as well as other pathologies. Diagnostics, as interpreted by me: EC Lead ECG performed and revealed Normal sinus rhythm at 75, normal [place], QRS normal. No elevation or depression. No PACs or PVCs Cardiac Monitoring: Cardiac monitoring ordered by me: The patient was placed on continuous cardiac monitoring and observed. It revealed a normal sinus rhythm at 77 beats per minute without ectopy or evidence of dysrhythmia. Medical decision rules: None Imaging studies: CT head and CT angiography as above. HPI: The patient is a 87year old male who presents to the Emergency Room with complaints of blurry vision. This started around 2 PM and is resolved. The patient also notes the following associated symptoms, transient headache, chest heaviness, shakiness in the arms and legs. He felt like the words would not keep the shaving or blurred. He denied diplopia. Family noted no slurred speech or facial droop. Patient does have a history of Parkinson's and does have tremor. They did note some extremity tremors at the time. The patient has been given no medication for relieving factors. Current pain is rated as 0/10. Pt denies LOC,fevers, chills, diaphoresis, neck pain, chest pain, breathing difficulties, nausea, vomiting, abdominal pain, back pain, melena, hematochezia, urinary symptoms, numbness, lymphadenopathy, rash, or other complaints. PAST MEDICAL HISTORY: See Below, Parkinson's, anticoagulated PAST SURGICAL HISTORY: See Below, SOCIAL HISTORY: See Below, HOME MEDICATIONS: See Below ALLERGIES: See Below VITALS: See Below PHYSICAL EXAMINATION: GENERAL: Awake, alert, [id number], in no distress HENT: Normocephalic, atraumatic. Oropharynx unremarkable. EYES: Normal conjunctiva. Sclera non-icteric. PERRLA. EOMI. Mild droop to the right eye noted however patient and family no chronic. NECK: Inspection normal. Non-tender. Supple. No nuchal rigidity. FROM. No masses. RESPIRATORY: Clear to auscultation. No wheezes. No rales. Normal respiratory effort. CARDIAC: Normal rate. Normal rhythm. No murmurs. No rubs. Extremities warm and well perfused. Pulses equal. No JVD. GI: Soft, non-distended. No tenderness to palpation. No rebound or guarding. No masses. RECTAL: Deferred. MUSCULOSKELETAL: Atraumatic. Chest examination reveals no tenderness. The back is symmetrical on inspection without obvious abnormality. There is no CVA tenderness to palpation. No joint edema. LOWER EXTREMITIES: Calves are equal size bilaterally and non-tender. No edema. No discoloration. NEURO: Normal sensorium. No sensory or motor deficits noted. No drift. Normal rapid alternating movements. Cranial nerves II through XII intact. Speech normal. SKIN: No rash or jaundice noted. 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) Hyperlipidemia Hypertension Lumbar canal stenosis Lumbar radiculopathy Monoclonal gammopathy of undetermined significance On anticoagulant therapy Prediabetes Tubular adenoma of colon Urinary incontinence Vitamin D deficiency Surgical History History of bilateral cataract extraction History of blepharoplasty (03/2007) History of colonoscopy History of tooth extraction Hx of vasectomy S/P TURP (02/2011) Family History Other No family history of bleeding disorder Denies family history of Ovarian cancer Prostate cancer Myocardial infarction Breast cancer Colorectal cancer Social History Smoking Status: Former smoker Second Hand Exposure: No; Hx Alcohol Use: Yes Alcohol type: wine Alcohol Intake Frequency: Monthly or Less Hx Substance Use: No Preferred Language: Portuguese Communication Ability: Effective Visual Impairment: Limited Hearing Ability: Use of Hearing Aid Cane Splicer Required: No Beliefs That Will Affect Care: None marital status: Current Living Situation: Spouse current occupational status: retired How many Children do You have: 1 Feels Safe at Home: Yes Childhood Exposure to Second-Hand Smoke: Yes (father smoked ) Diet Comment: regular caffeine: Yes during the past year weight has: remained stable Dental Care, Regularly: Yes Physical Activity Frequency: Daily Seatbelt Use: always Sunscreen Use: No Assistive Devices: None Allergies Allergies Allergy/AdvReac Type Severity Reaction Status Date / Time No Known Drug Allergies Allergy Unknown Verified 08/31/22 23:29 glycopyrrolate AdvReac Intermediate Unknown Uncoded 08/31/22 23:29 Home Meds Home Medications Medication Instructions Recorded Confirmed acetaminophen 500 mg tablet 1,000 mg PO BID PRN Pain 02/09/18 08/31/22 (Acetaminophen Extra Strength) mmqyqaza-rbusroeb-qbsgw acid 400 1 tab PO DAILY 07/15/21 08/31/22 mcg-vit K 20 mcg-lycop 300 mcg tablet (One-A-Day Men's Multivitamin) warfarin 3 mg tablet See Rx Instructions PO UD 05/10/22 08/31/22 pantoprazole 40 mg tablet,delayed 40 mg PO QPM 08/31/22 08/31/22 release Previous Rx's Medication Instructions Recorded carbidopa 25 mg-levodopa 100 mg 0.5 tab PO TID #90 tabs 07/06/22 tablet atorvastatin 40 mg tablet 40 mg PO QPM #90 tabs 08/16/22 Results & Data (ED) Vital Signs Vital Signs - 24 hr 08/31/22 17:16 08/31/22 18:12 08/31/22 18:25 Temperature 36.5 C Temperature Source Temporal Artery Scan Pulse Rate 79 76 Pulse Rate [Apical] 83 Pulse Rate from SpO2 Sensor Respiratory Rate 18 18 Respiratory Effort / Characteristics Non-Labored Spontaneous Respiratory Depth Normal Blood Pressure 162/84 H Blood Pressure [Right Arm] 191/97 H Blood Pressure Mean 110 Blood Pressure Mean [Right Arm] 128 Pulse Oximetry 97 97 Oxygen Delivery Method Room Air Room Air Sepsis Recent Fever Within 48 Hours No Sepsis New/Unexplained Change in Mental Status No Sepsis Action Taken by Nursing No Action Required 08/31/22 19:00 08/31/22 19:00 08/31/22 19:06 Temperature Temperature Source Pulse Rate 80 Pulse Rate [Apical] Pulse Rate from SpO2 Sensor 80 Respiratory Rate 16 Respiratory Effort / Characteristics Respiratory Depth Blood Pressure 185/87 H 197/92 H Blood Pressure [Right Arm] Blood Pressure Mean 119 127 Blood Pressure Mean [Right Arm] Pulse Oximetry 96 Oxygen Delivery Method Sepsis Recent Fever Within 48 Hours Sepsis New/Unexplained Change in Mental Status Sepsis Action Taken by Nursing 08/31/22 19:06 08/31/22 19:30 08/31/22 19:30 Temperature Temperature Source Pulse Rate 82 78 Pulse Rate [Apical] Pulse Rate from SpO2 Sensor 83 78 Respiratory Rate 19 16 Respiratory Effort / Characteristics Respiratory Depth Blood Pressure 160/83 H Blood Pressure [Right Arm] Blood Pressure Mean 108 Blood Pressure Mean [Right Arm] Pulse Oximetry 96 95 Oxygen Delivery Method Sepsis Recent Fever Within 48 Hours Sepsis New/Unexplained Change in Mental Status Sepsis Action Taken by Nursing 08/31/22 20:05 08/31/22 20:06 08/31/22 20:06 Temperature Temperature Source Pulse Rate 78 86 Pulse Rate [Apical] Pulse Rate from SpO2 Sensor 86 Respiratory Rate 12 22 Respiratory Effort / Characteristics Respiratory Depth Blood Pressure 203/87 H Blood Pressure [Right Arm] Blood Pressure Mean 125 Blood Pressure Mean [Right Arm] Pulse Oximetry 94 Oxygen Delivery Method Sepsis Recent Fever Within 48 Hours Sepsis New/Unexplained Change in Mental Status Sepsis Action Taken by Nursing 08/31/22 20:30 08/31/22 20:30 08/31/22 22:31 Temperature Temperature Source Pulse Rate 77 85 Pulse Rate [Apical] Pulse Rate from SpO2 Sensor 77 Respiratory Rate 17 Respiratory Effort / Characteristics Respiratory Depth Blood Pressure 172/91 H Blood Pressure [Right Arm] Blood Pressure Mean 118 Blood Pressure Mean [Right Arm] Pulse Oximetry 96 Oxygen Delivery Method Sepsis Recent Fever Within 48 Hours Sepsis New/Unexplained Change in Mental Status Sepsis Action Taken by Nursing 08/31/22 21:00 08/31/22 21:00 08/31/22 21:30 Temperature Temperature Source Pulse Rate 75 Pulse Rate [Apical] Pulse Rate from SpO2 Sensor 75 Respiratory Rate 16 Respiratory Effort / Characteristics Respiratory Depth Blood Pressure 169/88 H 172/95 H Blood Pressure [Right Arm] Blood Pressure Mean 115 120 Blood Pressure Mean [Right Arm] Pulse Oximetry 96 Oxygen Delivery Method Sepsis Recent Fever Within 48 Hours Sepsis New/Unexplained Change in Mental Status Sepsis Action Taken by Nursing 08/31/22 21:30 08/31/22 22:00 08/31/22 22:00 Temperature Temperature Source Pulse Rate 78 91 H Pulse Rate [Apical] Pulse Rate from SpO2 Sensor 79 Respiratory Rate 16 21 Respiratory Effort / Characteristics Respiratory Depth Blood Pressure 161/87 H Blood Pressure [Right Arm] Blood Pressure Mean 111 Blood Pressure Mean [Right Arm] Pulse Oximetry 96 Oxygen Delivery Method Sepsis Recent Fever Within 48 Hours Sepsis New/Unexplained Change in Mental Status Sepsis Action Taken by Nursing 08/31/22 22:30 08/31/22 22:30 08/31/22 23:00 Temperature Temperature Source Pulse Rate 76 Pulse Rate [Apical] Pulse Rate from SpO2 Sensor Respiratory Rate 19 Respiratory Effort / Characteristics Respiratory Depth Blood Pressure 152/76 H 139/70 Blood Pressure [Right Arm] Blood Pressure Mean 101 93 Blood Pressure Mean [Right Arm] Pulse Oximetry Oxygen Delivery Method Sepsis Recent Fever Within 48 Hours Sepsis New/Unexplained Change in Mental Status Sepsis Action Taken by Nursing 08/31/22 23:00 08/31/22 23:30 08/31/22 23:30 Temperature Temperature Source Pulse Rate 78 77 Pulse Rate [Apical] Pulse Rate from SpO2 Sensor Respiratory Rate 17 18 Respiratory Effort / Characteristics Respiratory Depth Blood Pressure 132/66 Blood Pressure [Right Arm] Blood Pressure Mean 88 Blood Pressure Mean [Right Arm] Pulse Oximetry Oxygen Delivery Method Sepsis Recent Fever Within 48 Hours Sepsis New/Unexplained Change in Mental Status Sepsis Action Taken by Nursing Laboratory Data 08/31/22 17:25 08/31/22 17:25 Lab Results 08/31/22 08/31/22 08/31/22 Range/Units 17:25 17:25 17:25 WBC 6.13 (4.8-10.8) K/ul RBC 4.03 L (4.70-6.10) M/uL Hgb 12.9 L (14.0-18.0) g/dl Hct 37.9 L (42.0-52.0) % MCV 94.0 (80.0-100.0) fL MCH 32.0 (25.0-34.0) pg MCHC 34.0 (32.0-36.0) g/dL RDW Std Deviation 44.2 (36.4-46.3) fL RDW Coeff of [place] 12.8 (11.5-14.5) % Plt Count 184 (130-400) K/uL MPV 9.2 L (9.4-12.4) fL Immature Gran % (Auto) 0.2 % Neut % (Auto) 56.5 % Lymph % (Auto) 28.9 % [place] % (Auto) 11.9 % Eos % (Auto) 1.5 % Baso % (Auto) 1.0 % Neut # (Auto) 3.47 (1.40-6.50) K/uL Lymph # (Auto) 1.77 (1.2-3.4) K/uL [place] # (Auto) 0.73 H (0.11-0.59) K/uL Eos # (Auto) 0.09 (0-0.50) K/uL Baso # (Auto) 0.06 (0-0.2) K/uL Immature Gran # (Auto) 0.01 (0.01-0.20) K/uL PT 29.3 H (9.0-12.0) Seconds INR 2.9 H (0.9-1.1) APTT 37.2 H (21.0-31.0) Seconds PTT Ratio 1.3 Sodium 138 (136-145) mmol/L Potassium 4.0 (3.5-5.1) mmol/L Chloride 104 (98-107) mmol/L Carbon Dioxide 27 (21-32) mmol/L Anion Gap 7 (3-11) BUN 14 (6-23) mg/dl Creatinine 1.21 (0.6-1.4) mg/dl Est Cr Clr Drug Dosing 40.2 ml/min Est GFR ( Amer) 62.0 ml/min Est GFR (Non-Af Amer) 53.5 ml/min BUN/Creatinine Ratio 11.6 (10-20) Glucose 104 H (70-99(Fasting)) mg/dl Calcium 9.7 (8.6-10.3) mg/dl Magnesium 1.8 (1.7-2.4) mg/dl Total Bilirubin 0.6 (0.2-1.0) mg/dl AST 47 H (13-39) U/L ALT 30 (7-52) U/L Alkaline Phosphatase 84 (34-104) U/L Troponin I High Sens 12.5 (0-20) pg/ml Total Protein 8.1 (6.0-8.3) gm/dl Albumin 4.3 (3.4-5.0) gm/dl Globulin 3.8 (2.5-4.0) gm/dl Albumin/Globulin Ratio 1.1 (0.9-2) SARS-CoV-2, RNA, NAAT (NEGATIVE) 08/31/22 Range/Units 21:35 WBC (4.8-10.8) K/ul RBC (4.70-6.10) M/uL Hgb (14.0-18.0) g/dl Hct (42.0-52.0) % MCV (80.0-100.0) fL MCH (25.0-34.0) pg MCHC (32.0-36.0) g/dL RDW Std Deviation (36.4-46.3) fL RDW Coeff of [place] (11.5-14.5) % Plt Count (130-400) K/uL MPV (9.4-12.4) fL Immature Gran % (Auto) % Neut % (Auto) % Lymph % (Auto) % [place] % (Auto) % Eos % (Auto) % Baso % (Auto) % Neut # (Auto) (1.40-6.50) K/uL Lymph # (Auto) (1.2-3.4) K/uL [place] # (Auto) (0.11-0.59) K/uL Eos # (Auto) (0-0.50) K/uL Baso # (Auto) (0-0.2) K/uL Immature Gran # (Auto) (0.01-0.20) K/uL PT (9.0-12.0) Seconds INR (0.9-1.1) APTT (21.0-31.0) Seconds PTT Ratio Sodium (136-145) mmol/L Potassium (3.5-5.1) mmol/L Chloride (98-107) mmol/L Carbon Dioxide (21-32) mmol/L Anion Gap (3-11) BUN (6-23) mg/dl Creatinine (0.6-1.4) mg/dl Est Cr Clr Drug Dosing ml/min Est GFR ( Amer) ml/min Est GFR (Non-Af Amer) ml/min BUN/Creatinine Ratio (10-20) Glucose (70-99(Fasting)) mg/dl Calcium (8.6-10.3) mg/dl Magnesium (1.7-2.4) mg/dl Total Bilirubin (0.2-1.0) mg/dl AST (13-39) U/L ALT (7-52) U/L Alkaline Phosphatase (34-104) U/L Troponin I High Sens (0-20) pg/ml Total Protein (6.0-8.3) gm/dl Albumin (3.4-5.0) gm/dl Globulin (2.5-4.0) gm/dl Albumin/Globulin Ratio (0.9-2) SARS-CoV-2, RNA, NAAT NEGATIVE (NEGATIVE) Administered Medications Discontinued Medications Ioversol (Optiray 320 500ml) 112 ml IV ONCE ONE Stop: 08/31/22 20:18 Last Admin: 08/31/22 20:17 Dose: 112 ml Documented By: [facility] Imaging Data Radiologist's Impression: Chest X-Ray 08/31/22 17:21 XR chest 1V portable CLINICAL HISTORY: chest heaviness COMPARISON STUDY: Chest CT April 24, 2015. Chest radiograph November 09, 2016. FINDINGS: Old right-sided rib fractures are incidentally noted. Lung volumes are normal. Lungs are clear. There is no pneumothorax or pleural effusion. There is mild cardiomegaly. Mediastinal contours are normal. There is no evidence for pulmonary edema. IMPRESSION: No acute cardiopulmonary findings. No significant change in appearance of the chest. ACT 112: Negative or not required by law. Electronically signed by: Maikol Dover M.D. 08/31/2022 6:[address] 08/31/22 17:21 CT OF THE HEAD WITHOUT CONTRAST CLINICAL HISTORY: blurry vision, leg weakness COMPARISON STUDY: MRI of the brain July 04, 2022. Head CT April 10, 2015. CT DOSE: 1247.04 mGy.cm TECHNIQUE: Helical axial images of the head were obtained without IV contrast. Automated exposure control was utilized for the study. A dose lowering technique was utilized adhering to the principles of ALARA. FINDINGS: No acute intracranial hemorrhage, midline shift or mass effect is present. The ventricular system is stable. White matter hypodensity suggests small vessel disease. The basal cisterns are patent. No extra-axial collections are present. There are no findings to suggest acute dural sinus thrombosis or acute territorial infarct. No significant calvarial abnormalities are present. Visualized portions of the sinuses and mastoid air cells are clear. IMPRESSION: No acute intracranial findings. ACT 112: Negative or not required by law. Electronically signed by: Maikol Dover M.D. 08/31/2022 8:13 PM Head CTA 08/31/22 17:21 CTA ANGIOGRAPHY OF THE HEAD CLINICAL HISTORY: blurry vision, leg weakness COMPARISON STUDY: MRI of the brain July 04, 2022. Head CT April 10, 2015.. TECHNIQUE: Helical axial images of the head were obtained following uneventful intravenous administration of 112 cc of Optiray. Sagittal and coronal reconstructions were viewed as well as maximal intensity projections on an independent 3-D workstation. Automated exposure control was utilized for the study. A dose lowering technique was utilized adhering to the principles of ALARA. FINDINGS: No acute intracranial hemorrhage was identified on the head CT which will be reported separately. Ventricular system is stable from earlier MRI. Basal cisterns are patent. There are no extra-axial collections. There is no central vessel occlusion. The bilateral M1, M2, A1 and A2 segments are patent. The posterior circulation is intact. There is no intracranial aneurysm. There is mild plaque within the left cavernous carotid without stenosis. Major dural sinuses are patent. IMPRESSION: No central vessel occlusion. No intracranial aneurysm. ACT 112: Negative or not required by law. Electronically signed by: Maikol Dover M.D. 08/31/2022 8:23 PM Neck CTA 08/31/22 17:21 CT ANGIOGRAPHY OF THE NECK WITH CONTRAST CLINICAL HISTORY: blurry vision, leg weakness COMPARISON STUDY: Carotid ultrasound June 30, 2020. Neck CT April 12, 2019. Technique: CT angiography of the carotid and vertebral arteries was obtained using Opt[employer] and 3D reconstruction on an independent workstation. NASCET criteria was utilized. Automated exposure control was utilized for the study. A dose lowering technique was utilized adhering to the principles of ALARA. Findings: Visualized portions of the lung apices are unremarkable. There is no cervical lymphadenopathy. No cervical spine fracture is identified. S-shaped curvature of the cervicothoracic spine is incidentally noted. The bilateral common carotid arteries are patent. Mixed plaque within the proximal right internal carotid artery results in severe stenosis of the vessel with approximate 80% narrowing. The remainder of the right internal carotid artery is patent. There is extensive mixed plaque within the proximal left internal carotid artery which results in severe stenosis. There is a proximal 80-90% stenosis of the proximal left internal carotid artery. The bilateral vertebral arteries are patent. There is no dissection within the neck. No aneurysm within the neck. IMPRESSION: 1. Severe (80-90%) stenosis of the proximal left internal carotid artery due to predominantly calcified plaque. 2. Severe (80%) stenosis of the proximal right internal carotid artery due to mixed plaque. ACT 112: Negative or not required by law. Electronically signed by: Maikol Dover M.D. 08/31/2022 8:27 PM Brain MRI 08/31/22 23:07 Exam(s): MRI HEAD Without Contrast EXAM: MR Head Without Intravenous Contrast CLINICAL HISTORY: Reason for exam: Blurry vision, concern for stroke. TECHNIQUE: Magnetic resonance images of the head/brain without intravenous contrast in multiple planes. COMPARISON: MRI dated 07/04/22. FINDINGS: Brain: The diffusion sequence is mildly limited by motion artifact, there is no evidence for acute infarct. Abnormal T2 signal in the deep cerebral white matter is consistent with small vessel ischemic/degenerative changes. The cerebral and cerebellar sulci are prominent consistent with brain atrophy. No hemorrhage. Ventricles: Unremarkable. No ventriculomegaly. Bones/joints: Unremarkable. Sinuses: Unremarkable as visualized. No acute sinusitis. Mastoid air cells: Unremarkable as visualized. No mastoid effusion. Orbits: Unremarkable as visualized. IMPRESSION: 1. Small vessel ischemic/degenerative changes. 2. Cerebral and cerebellar atrophy. Electronically signed by: Korey Doherty MD 09/01/22 00:43 AM Discharge Plan Visit Data Chief Complaint: Vertigo Stated Complaint: DIZZY,INCOHERENT,HBP,UNSTABLE ON FEET ED Provider: Simon Glass Discharge Problem: Blurred vision, Hypertension, Stroke-like symptoms, Internal carotid artery stenosis Patient Disposition: Admitted As Inpatient Discharge Instructions Interventions: ED Discharge Assessment Last Done: 09/01/22 01:28
--- NOTE | 2022-08-31 18:45 | XRay Report ---
XR chest 1V portable CLINICAL HISTORY: chest heaviness COMPARISON STUDY: Chest CT April 24, 2015. Chest radiograph November 09, 2016. FINDINGS: Old right-sided rib fractures are incidentally noted. Lung volumes are normal. Lungs are cl ear. There is no pneumothorax or pleural effusion. There is mild cardiomegaly. Mediastinal contours a re normal. There is no evidence for pulmonary edema. IMPRESSION: No acute cardiopulmonary findings. No significant change in appearance of the chest. ACT 112: Negative or not required by law. Electronically signed by: Maikol Dover M.D. 08/31/2022 6:44 PM
--- NOTE | 2022-08-31 20:15 | CT Scan Report ---
CT OF THE HEAD WITHOUT CONTRAST CLINICAL HISTORY: blurry vision, leg weakness COMPARISON STUDY: MRI of the brain July 04, 2022. Head CT April 10, 2015. CT DOSE: 1247.04 mGy.cm TECHNIQUE: Helical axial images of the head were obtained without IV contrast. Automated exposure con trol was utilized for the study. A dose lowering technique was utilized adhering to the principles o f ALARA. FINDINGS: No acute intracranial hemorrhage, midline shift or mass effect is present. The ventricular system is stable. White matter hypodensity suggests small vessel disease. The basal cisterns are hernández nt. No extra-axial collections are present. There are no findings to suggest acute dural sinus thromb osis or acute territorial infarct. No significant calvarial abnormalities are present. Visualized por tions of the sinuses and mastoid air cells are clear. IMPRESSION: No acute intracranial findings. ACT 112: Negative or not required by law. Electronically signed by: Maikol Dover M.D. 08/31/2022 8:13 PM
[2022-08-31] MEDS ORDERED: OPTIRAY 320 500ml IV ONE (20:17)
--- NOTE | 2022-08-31 20:26 | CT Scan Report ---
CTA ANGIOGRAPHY OF THE HEAD CLINICAL HISTORY: blurry vision, leg weakness COMPARISON STUDY: MRI of the brain July 04, 2022. Head CT April 10, 2015.. TECHNIQUE: Helical axial images of the head were obtained following uneventful intravenous administr ation of 112 cc of Optiray. Sagittal and coronal reconstructions were viewed as well as maximal inten sity projections on an independent 3-D workstation. Automated exposure control was utilized for the study. A dose lowering technique was utilized adhering to the principles of ALARA. FINDINGS: No acute intracranial hemorrhage was identified on the head CT which will be reported separ ately. Ventricular system is stable from earlier MRI. Basal cisterns are patent. There are no extra-a xial collections. There is no central vessel occlusion. The bilateral M1, M2, A1 and A2 segments are patent. The posterior circulation is intact. There is no intracranial aneurysm. There is mild plaque within the left cavernous carotid without stenosis. Major dural sinuses are patent. IMPRESSION: No central vessel occlusion. No intracranial aneurysm. ACT 112: Negative or not required by law. Electronically signed by: Maikol Dover M.D. 08/31/2022 8:23 PM
--- NOTE | 2022-08-31 20:29 | CT Scan Report ---
CT ANGIOGRAPHY OF THE NECK WITH CONTRAST CLINICAL HISTORY: blurry vision, leg weakness COMPARISON STUDY: Carotid ultrasound June 30, 2020. Neck CT April 12, 2019. Technique: CT angiography of the carotid and vertebral arteries was obtained using Opt[employer] and 3D rec onstruction on an independent workstation. NASCET criteria was utilized. Automated exposure control was utilized for the study. A dose lowering technique was utilized adhering to the principles of ALA RA. Findings: Visualized portions of the lung apices are unremarkable. There is no cervical lymphadenopat hy. No cervical spine fracture is identified. S-shaped curvature of the cervicothoracic spine is inci dentally noted. The bilateral common carotid arteries are patent. Mixed plaque within the proximal ri ght internal carotid artery results in severe stenosis of the vessel with approximate 80% narrowing. The remainder of the right internal carotid artery is patent. There is extensive mixed plaque within the proximal left internal carotid artery which results in severe stenosis. There is a proximal 80-90 % stenosis of the proximal left internal carotid artery. The bilateral vertebral arteries are patent. There is no dissection within the neck. No aneurysm within the neck. IMPRESSION: 1. Severe (80-90%) stenosis of the proximal left internal carotid artery due to predominantly calcifi ed plaque. 2. Severe (80%) stenosis of the proximal right internal carotid artery due to mixed plaque. ACT 112: Negative or not required by law. Electronically signed by: Maikol Dover M.D. 08/31/2022 8:27 PM
--- NOTE | 2022-08-31 22:50 | History & Physical Report ---
Date of Service August 31, 2022 Assessment & Plan (1) Blurred vision: Plan: 87 y/o M w/ complex PmHx admitted for new onset blurry vision, concern for TIA. Blurry vision: -Symptoms lasting 30 minutes. -CT head, CTA head negative for any acute bleeds or processes. -CTA neck with new worsening L and R internal carotid artery stenosis (Severe) -Will order MRI brain to check for possible stroke. -Questionable contribution from worsening internal carotid stenosis. -Consulted Vascular surgery for input regarding worsening carotid stenosis and possible need for surgical intervention at this time. -NPO, will convert anticoagulation to heparin for potential surgery, will need to order once INR <2. -Continue to monitor symptoms. Internal Carotid artery stenosis: -As above, consulted vascular for worsening stenosis. Continue home atorvastatin 40mg. Parkinsons/sialorrhea: -Continue home carbidopa-levodopa once med rec completed. -Drooling/sialorrhea better over the course of today. HTN: -Not on any home medications, continue to monitor. GERD: -Continue home pantoprazole 40mg daily once med rec complete. Hx of DVT: -Patient on warfarin for history of clot, last one per patient being in 2010 or so. -Move to heparin when INR <2 for potential surgery. F/E/N/GI: NPO past midnight for potential vascular surgical eval. DVT Prophylaxis: Hold warfarin, wait for INR <2 and start heparin IV for potential surgery. Code status: Full code, call family if no resuscitation within first few rounds. Dispo: Med/tele. (2) Parkinsons disease: (3) Hypertension: (4) On anticoagulant therapy: (5) GERD (gastroesophageal reflux disease): (6) BPH (benign prostatic hyperplasia): (7) Higgins's esophagus: (8) History of deep vein thrombosis: (9) Sialorrhea: (10) Hyperlipidemia: (11) Gout: (12) Carotid artery stenosis: History of Present Illness Chief Complaint: Blurry vision Primary Care Provider: DO Sunil Cruz is an 87 year old male w/ PmHx Parkinson's with R sided weakness and sialorrhea, dysphagia, GERD, HTN, HLD, Hx of DVT on warfarin, carotid artery stenosis, BPH, constipation coming in for new onset blurry vision that lasted for 30 minutes earlier in the day. Patient states that earlier today he was out getting mail when he took a look at the mail and started to notice the words looked like one blurry line. He had some difficulty with near and far sighted vision like this for about 30 minutes. He did not feel quite right and went to lay down for a good bit of time. Denies fevers, chills, recent URI, urinary complaint, diarrhea. He states he previously had some vascular stenosis for which he saw Dr. Alegria for 2 or 3 years prior and was told to follow up again in 2022. He is not a smoker and only drinks one glass of wine every week. In the ED CBC and CMP unremarkable, INR 2.9. CXR, CT and CTA head unremarkable. CTA neck showed L proximal internal carotid artery stenosis 80-90% and 80% R internal carotid artery stenosis. Allergies Allergy/AdvReac Type Severity Reaction Status Date / Time No Known Drug Allergies Allergy Unknown Verified 08/31/22 23:29 glycopyrrolate AdvReac Intermediate Unknown Uncoded 08/31/22 23:29 Home Medications Medication Instructions Recorded Confirmed Type acetaminophen 500 mg tablet 1,000 mg PO BID PRN Pain 02/09/18 08/31/22 History (Acetaminophen Extra Strength) yqjgjmns-fholnzkb-qtiyi acid 400 1 tab PO DAILY 07/15/21 08/31/22 History mcg-vit K 20 mcg-lycop 300 mcg tablet (One-A-Day Men's Multivitamin) warfarin 3 mg tablet See Rx Instructions PO UD 05/10/22 08/31/22 History carbidopa 25 mg-levodopa 100 mg 0.5 tab PO TID #90 tabs 07/06/22 08/31/22 Rx tablet atorvastatin 40 mg tablet 40 mg PO QPM #90 tabs 08/16/22 08/31/22 Rx pantoprazole 40 mg tablet,delayed 40 mg PO QPM 08/31/22 08/31/22 History release 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) Hyperlipidemia Hypertension Lumbar canal stenosis Lumbar radiculopathy Monoclonal gammopathy of undetermined significance On anticoagulant therapy Prediabetes Tubular adenoma of colon Urinary incontinence Vitamin D deficiency Surgical History History of bilateral cataract extraction History of blepharoplasty (03/2007) History of colonoscopy History of tooth extraction Hx of vasectomy S/P TURP (02/2011) Family History Other No family history of bleeding disorder Denies family history of Ovarian cancer Prostate cancer Myocardial infarction Breast cancer Colorectal cancer Social History Smoking Status: Former smoker Second Hand Exposure: No; Do You Dip or Chew Tobacco: No; Hx Alcohol Use: Yes Alcohol type: wine Alcohol Intake Frequency: Monthly or Less Hx Substance Use: No Preferred Language: Amharic Communication Ability: Effective Visual Impairment: Limited Hearing Ability: Use of Hearing Aid Presentation Designer Required: No Beliefs That Will Affect Care: None marital status: Current Living Situation: Spouse current occupational status: retired How many Children do You have: 1 Feels Safe at Home: Yes Childhood Exposure to Second-Hand Smoke: Yes (father smoked ) Diet Comment: regular caffeine: Yes during the past year weight has: remained stable Dental Care, Regularly: Yes Physical Activity Frequency: Daily Seatbelt Use: always Sunscreen Use: No Assistive Devices: None Review of Systems Review of Systems: As per HPI. Physical Exam Constitutional: WD/WN, vitals as above Eyes: Constricted pupils. Respiratory: normal respiratory effort, lungs clear to auscultation Cardiovascular: RRR, no murmur, no edema Gastrointestinal (Abdomen): normal bowel sounds, soft, nontender, no hepatosplenomegaly Skin: no rashes, warm and dry Neurologic: CN 2-12 in tact bilaterally with residual mild droop on the R. Psychiatric: A+Ox3, euthymic affect Slow speech. Results & Data Results & Data Vital Signs (Past 12 Hours) Vital Signs Temp Pulse Pulse Resp BP BP Pulse Ox 08/31/22 20:30 77 17 96 08/31/22 20:30 172/91 H 08/31/22 20:06 86 22 94 08/31/22 20:06 203/87 H 08/31/22 20:05 78 12 08/31/22 19:30 78 16 95 08/31/22 19:30 160/83 H 08/31/22 19:06 82 19 96 08/31/22 19:06 197/92 H 08/31/22 19:00 80 16 96 08/31/22 19:00 185/87 H 08/31/22 18:25 76 08/31/22 18:12 83 18 191/97 H 97 08/31/22 17:16 36.5 C 79 18 162/84 H 97 O2 Del Method 08/31/22 20:30 08/31/22 20:30 08/31/22 20:06 08/31/22 20:06 08/31/22 20:05 08/31/22 19:30 08/31/22 19:30 08/31/22 19:06 08/31/22 19:06 08/31/22 19:00 08/31/22 19:00 08/31/22 18:25 08/31/22 18:12 Room Air 08/31/22 17:16 Room Air Supervising Physician Co-Signing Physician Notes Attending addendum: I have physically seen this patient, have supervised the medical residents activities, and agree with the H&P unless as otherwise noted. Assessment and Plan: Blurred vision/TIA-like symptoms- CT head, CTA head both negative CTA neck with 80-90% stenosis proximal LICA, 80% proximal stenosis R ICA MRI brain without contrast Vascular surgery consult Hold warfarin, and change to IV heparin per protocol Parkinson's- Continue carbidopa levodopa Hypertension- Permissive hypertension overnight GERD- Continue pantoprazole 40 mg daily History of DVT- Changing warfarin to IV heparin as noted Remaining orders and notations as noted Resident Activity Tracking Resident Involvement: Resident Care Provided Care Provided: Adult Hospital Medicine
--- NOTE | 2022-09-01 00:44 | Magnetic Resonance Report ---
Exam(s): MRI HEAD Without Contrast EXAM: MR Head Without Intravenous Contrast CLINICAL HISTORY: Reason for exam: Blurry vision, concern for stroke. TECHNIQUE: Magnetic resonance images of the head/brain without intravenous contrast in multiple planes. COMPARISON: MRI dated 07/04/22. FINDINGS: Brain: The diffusion sequence is mildly limited by motion artifact, there is no evidence for acute infarct. Abnormal T2 signal in the deep cerebral white matter is consistent with small vessel ischemic/degenerative changes. The cerebral and cerebellar sulci are prominent consistent with brain atrophy. No hemorrhage. Ventricles: Unremarkable. No ventriculomegaly. Bones/joints: Unremarkable. Sinuses: Unremarkable as visualized. No acute sinusitis. Mastoid air cells: Unremarkable as visualized. No mastoid effusion. Orbits: Unremarkable as visualized. IMPRESSION: 1. Small vessel ischemic/degenerative changes. 2. Cerebral and cerebellar atrophy. Electronically signed by: Korey Doherty MD 09/01/22 00:43 AM
[2022-09-01] MEDS ORDERED: ACETAMINOPHEN 325 MG TAB PO PRN (01:40)
[2022-09-01] MEDS: D5W AND 1/2NSS 1,000 ML IV SCH ×2 (02:59→11:27)
[2022-09-01] MEDS: POLYETHYLENE (MIRALAX) 17 GM PACK PO SCH (10:52)
--- NOTE | 2022-09-01 14:25 | Neurology Consultation ---
Date of Consultation September 01, 2022 Assessment & Plan (1) Stroke-like symptoms: (2) Internal carotid artery stenosis: (3) Blurred vision: (4) Hypertension: Plan 87-year-old male with idiopathic right latricia-Parkinson's disease, history of bilateral carotid stenosis, left greater than right, presenting with dizziness, subjective generalized weakness, and bilateral vision disturbance in the context of what looks like hypertensive urgency with blood pressure readings above 190/90. No obvious evidence of acute infarct on MRI although there does appear to be relatively increased T2/flair signal in the posterior parieto-occipital region and cerebellum that could be consistent with PRES (posterior reversible encephalopathy syndrome). Patient's imaging is not classic, however, for this disorder, discussed with radiology. Again, no definitive evidence of acute or subacute infarct. Patient does have significant bilateral proximal internal carotid artery stenoses, 80 to 90% on the left, 80% on the right. If not PRES, his symptoms could also be consistent with an episode of hypoperfusion to both cerebral hemispheres in the context of his bilateral ICA stenoses. However, he has been clinically stable since the episode yesterday afternoon. Going forward, he will likely need surgical intervention for his bilateral carotid disease. For the time being, however, he should continue with atorvastatin. Would also recommend adding daily low-dose aspirin. He is also on warfarin in light of history of DVT. In addition to daily low-dose aspirin, it looks like losartan has been added to his medication regimen. His current blood pressure is much improved. Would avoid aggressive lowering of blood pressure, however, due to bilateral carotid stenosis. Systolic blood pressure goal 140 to 160 mmHg. Patient will need a timely follow-up with his vascular surgeon, Dr. Alegria. History of Present Illness Reason for Consultation: Blurry vision, carotid stenosis Requesting Physician: Dr. Good Attending Physician: Toribio Marie DO History of Present Illness The patient is an 87-year-old male who is known to me, he has a history of Parkinson's disease and carotid stenosis, last seen in neurology clinic July 06, 2022. He has mild to moderate idiopathic right latricia-Parkinson's disease with mild intermittent right upper extremity resting tremor, mild rigidity, diminished arm swing on the right with ambulation, and bradykinesia. He has als o had associated excessive drooling. I have been prescribing him a low-dose of carbidopa levodopa. He has followed with Dr. Alegria, local vascular surgeon, regarding his carotid stenosis. Carotid ultrasound completed June 26, 2022 suggested 70% stenosis of the left ICA, less than 50% stenosis of the right ICA, antegrade flow for both vertebral arteries. Mr. Zendejas had presented to the [facility] emergency department yesterday with a chief complaint of dizziness, a feeling of weakness in the legs, and blurry vision. The episode occurred at around 2 PM yesterday afterno on when he had gotten the mail. He recalls having difficulty reading, both eyes reportedly affected, as if his vision dimmed down bilaterally. He did not feel well at that time and lie down for a bit. He does not recall experiencing any headache or ocular pain. He thinks both eyes were affected. He denies any double vision. He is unable to describe the vision disturbance in any further detail. Patient's son was at bedside who helps corroborate the history. Further, the patient does not recall having any associated true vertigo, slurred speech, focal weakness or sensory loss. A CT of the head completed yesterday was negative for hemorrhage or acute process. A CT angiogram of the head was negative for central vessel occlusion or other vascular abnormality. A CTA of the neck revealed a severe (80 to 90%) stenosis of the proximal left internal carotid artery due to to predominantly calcified plaque. There was also a severe (80%) stenosis of the proximal right internal carotid artery due to mixed plaque. An MRI of the brain completed yesterday was negative for acute or subacute infarct. There was evidence of chronic small vessel ischemic disease as well as generalized atrophy. I did independently review these images. Diffusion-weighted imaging is partially limited by motion artifact. However, there does appear to be some restricted diffusion within both parieto-occipital regions, left greater than right, with perhaps some reduced signal and corresponding ADC mapping. I do note there is rather extensive increased FLAIR signal within both parieto-occipital lobes, and the deep white matter, primarily periventricular location, as well as midline cerebellum. Overall distribution could also potentially be consistent with PRES (posterior reversible encephalopathy syndrome). I note that he has been significantly hypertensive in the context of this current hospitalization. I did discuss the above imaging with radiology. Imaging not felt to be classic for PRES, borderline abnormality on DWI not felt to be definitively positive. Allergies Allergy/AdvReac Type Severity Reaction Status Date / Time No Known Drug Allergies Allergy Unknown Verified 08/31/22 23:29 glycopyrrolate AdvReac Intermediate Unknown Uncoded 08/31/22 23:29 Home Medications Medication Instructions Recorded Confirmed Type acetaminophen 500 mg tablet 1,000 mg PO BID PRN Pain 02/09/18 08/31/22 History (Acetaminophen Extra Strength) gajsptcu-pwdgkzno-tqpuk acid 400 1 tab PO DAILY 07/15/21 08/31/22 History mcg-vit K 20 mcg-lycop 300 mcg tablet (One-A-Day Men's Multivitamin) warfarin 3 mg tablet See Rx Instructions PO UD 05/10/22 08/31/22 History carbidopa 25 mg-levodopa 100 mg 0.5 tab PO TID #90 tabs 07/06/22 08/31/22 Rx tablet atorvastatin 40 mg tablet 40 mg PO QPM #90 tabs 08/16/22 08/31/22 Rx pantoprazole 40 mg tablet,delayed 40 mg PO QPM 08/31/22 08/31/22 History release Patient History Medical History Anemia Higgins's esophagus BPH (benign prostatic hyperplasia) Carotid artery stenosis Deep vein thrombosis Diaphragmatic hernia Diverticulosis GERD (gastroesophageal reflux disease) Gout History of deep vein thrombosis 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) Hyperlipidemia Hypertension Lumbar canal stenosis Lumbar radiculopathy Monoclonal gammopathy of undetermined significance On anticoagulant therapy Prediabetes Tubular adenoma of colon Urinary incontinence Vitamin D deficiency Surgical History History of bilateral cataract extraction History of blepharoplasty (03/2007) History of colonoscopy History of tooth extraction Hx of vasectomy S/P TURP (02/2011) Family History Other No family history of bleeding disorder Denies family history of Ovarian cancer Prostate cancer Myocardial infarction Breast cancer Colorectal cancer Social History Smoking Status: Former smoker Second Hand Exposure: No; Do You Dip or Chew Tobacco: No; Hx Alcohol Use: Yes Alcohol type: wine Alcohol Intake Frequency: Monthly or Less Hx Substance Use: No Preferred Language: Azeri Communication Ability: Effective Visual Impairment: Limited Hearing Ability: Use of Hearing Aid Agent Contract Clerk Required: No Beliefs That Will Affect Care: None marital status: Current Living Situation: Spouse current occupational status: retired How many Children do You have: 1 Feels Safe at Home: Yes Childhood Exposure to Second-Hand Smoke: Yes (father smoked ) Diet Comment: regular caffeine: Yes during the past year weight has: remained stable Dental Care, Regularly: Yes Physical Activity Frequency: Daily Seatbelt Use: always Sunscreen Use: No Assistive Devices: None Review of Systems Constitutional: no fever and no chills Eyes: as per Subjective / HPI Ear, Nose, Mouth, Throat: no hearing loss Respiratory: no cough and no dyspnea Cardiovascular: no chest pain and no palpitations Gastrointestinal: no nausea and no vomiting Genitourinary: no dysuria Musculoskeletal: no neck pain and no myalgia Integumentary: no rash and no lesions Neurologic: as per Subjective / HPI Psychiatric: no depression and no anxiety Hematologic / Lymphatic: no easy bleeding and no easy bruising Exam (Neuro) Constitutional: well developed; no acute distress Eyes: normal visual duarte by confrontation, PERRL and EOM intact bilaterally; no papilledema Cardiovascular: Vessels: no carotid bruit Neurologic: Oriented to:: Person, Place and Time Memory: Remote Intact; negative Short Term Intact Attention: Span Intact and Concentration Intact Speech Fluency: negative Dysarthria or Dysfluency Fund of Knowledge: Current Events, Past History and Vocabulary Cranial Nerves: Normal II, III, IV, , V, VII, VIII, IX, X, XI and XII Motor Strength: Normal Lower Extremities and Normal Upper Extremities Rigidity: Rigidity Laterality: Right Muscle Bulk/Involuntary Movements: No Involuntary Movements; negative Pill Rolling Tremor Sensation: Light Touch Intact, Pain/Temperature Intact and Proprioception Intact; negative Vibration Intact Coordination: negative Finger-Nose Abnormal or Heel-Nava Abnormal Deep Tendon Reflexes: Rt Triceps: 1+, Lt Triceps: 1+, Rt Biceps: 1+, Lt Biceps: 1+, Rt Brachioradialis: 1+, Lt Brachioradialis: 1+, Rt Patellar: 1+, Lt Patellar: 1+, Rt Ankle: 1+ and Lt An kle: 1+ Details: Gait could not be tested in the context of patient's current neurological status Results & Data Vital Signs (Past 12 Hours) Vital Signs Temp Pulse Pulse Resp BP Pulse Ox O2 Del Method 09/01/22 10:56 36.7 C 58 L 18 123/73 95 Room Air 09/01/22 07:09 36.5 C 61 14 169/74 H 96 Room Air 09/01/22 04:03 36.7 C 73 18 180/73 H 96 Room Air 09/01/22 03:53 36.7 C 60 18 148/78 H 95 Room Air 09/01/22 03:32 72 Laboratory Results WBC 6.13, hemoglobin 12.9, hematocrit 37.9, platelet count 184, sodium 138, potassium 4.0, BUN 14, creatinine 1.21, glucose 104, calcium 9.7, magnesium 1.8, AST 47, ALT [address] of the head including CT angiography of the head and neck, and brain MRI are as described in the HPI. I independently reviewed these images. An electrocardiogram revealed normal sinus rhythm, 75 bpm. PG Care Time/CCT Total # of Minutes Spent Total Time Spent with Patient: Total time spent is greater than 50% in coordination of care (as documented) at patient's floor/unit and/or counseling patient: 80 minutes Coding Level of Care Code 46469 INT INP/OBS CARE 75MIN Diagnoses Stroke-like symptoms R29.90 Internal carotid artery stenosis I65.29 Blurred vision H53.8 Hypertension I10
--- NOTE | 2022-09-01 14:46 | Hospitalist Progress Note ---
Date of Service September 01, 2022 Assessment & Plan (1) Blurred vision: Plan: 87 y/o M w/ complex PmHx admitted for new onset blurry vision, concern for TIA. Transient visual disturbance: -Symptoms lasting 30 minutes- blurry vision -CT head, CTA head, MRI brain negative for any acute process -CTA neck with new worsening L and R ICA stenosis, 80%+ severity -Suspect likely due to small vessel ischemia of cerebral ischemia with contribution from carotid artery stenoses -Neurology consult -Brain MRI + presentation suggest PRES 2/2 hypertensive urgency -Initiated aspirin + losartan -PT/OT evaluations ordered Carotid artery stenosis: -As above, consulted vascular for worsening stenosis -Continue home atorvastatin 40mg -Pt does have outpatient vascular surgery f/u in September 2022 HTN: -Not on any home medications -Started losartan 25 mg Parkinsons/sialorrhea: -Continue home carbidopa-levodopa -Drooling/sialorrhea better over course of day GERD: -Continue home pantoprazole 40mg daily Hx of DVT: -Supratherapeutic INR 2.9, monitor and resume warfarin as appropriate F/E/N/GI: Heart healthy DVT Prophylaxis: Supratherapeutic INR Code status: Full code, call family if no resuscitation within first few rounds. Dispo: MST (2) Parkinsons disease: (3) Hypertension: (4) On anticoagulant therapy: (5) GERD (gastroesophageal reflux disease): (6) BPH (benign prostatic hyperplasia): (7) Higgins's esophagus: (8) History of deep vein thrombosis: (9) Sialorrhea: (10) Hyperlipidemia: (11) Gout: (12) Carotid artery stenosis: Admission and Anticipated Discharge Date Admission Date: August 31, 2022 Supervising Physician Co-Signing Physician Notes I personally examined the patient and verified all dsouza points of history and exam, discussed case, and agree with decision making with Dr Good. Feeling bettervision is good, still a bit unsteady on his feet. Son present, feels patient is improving as well. Neurology input greatly appreciated. Vitals noted, in general he is awake and alert pleasant no distress. HEENT normocephalic atraumatic mucous membranes moist. Breathing unlabored no accessory muscle use good effort. Skin shows no rashes no pallor or icterus. MRI, CBC, lipid panel, basic metabolic panel all noted. Cerebrovascular ischemiaappreciate neurology inputPRES mechanism seems to be most likely, certainly has risk for small vessel intracranial atherosclerosis, and has large vessel carotid disease as well. Med management, secondary risk reduction. Otherwise as above. Home tomorrow if his symptoms continue to improve, if his blood pressures are reasonable, if he tolerates losartan well, and if he is able to get around steadily. Otherwise as above. Subjective Acute events overnight- none. Pt examined at bedside. Denies any further visual disturbance but notes fatigue. Review of Systems Review of Systems: As per HPI. Physical Exam Constitutional: WD/WN, vitals as above Respiratory: normal respiratory effort, lungs clear to auscultation Cardiovascular: RRR, no murmur, no edema Gastrointestinal (Abdomen): normal bowel sounds, soft, nontender, no hepatosplenomegaly Skin: no rashes, warm and dry Neurologic: AOx3, no focal motor or sensory deficits, CN 2-12 intact, gait not assessed Psychiatric: A+Ox3, euthymic affect Results & Data Results & Data Vital Signs (Past 12 Hours) Vital Signs Temp Pulse Pulse Resp BP Pulse Ox O2 Del Method 09/01/22 10:56 36.7 C 58 L 18 123/73 95 Room Air 09/01/22 07:09 36.5 C 61 14 169/74 H 96 Room Air 09/01/22 04:03 36.7 C 73 18 180/73 H 96 Room Air 09/01/22 03:53 36.7 C 60 18 148/78 H 95 Room Air 09/01/22 03:32 72 Resident Activity Tracking Resident Involvement: Resident Care Provided Care Provided: Adult Hospital Medicine
--- NOTE | 2022-09-01 15:13 | Billing Data ---
Date of Service September 01, 2022 Coding Level of Care Code 60988 SUB INP/OBS CARE
[2022-09-01] MEDS: LOSARTAN POTASSIUM 25 MG TAB PO SCH (16:11)
[2022-09-01] MEDS: ASPIRIN 81 MG CHEW PO SCH (16:11)
[2022-09-01] MEDS ORDERED: ACETAMINOPHEN 500 MG TAB PO PRN (18:08)
--- NOTE | 2022-09-01 20:34 | Billing Data ---
Date of Service September 01, 2022 Coding Level of Care Code 90429 INT INP/OBS CARE
[2022-09-01] MEDS ORDERED: ATORVASTATIN 40 MG TAB PO SCH (21:00)
[2022-09-01] MEDS ORDERED: PANTOprazole 40 MG TAB PO SCH (21:00)
[2022-09-01] MEDS: CARBIDOPA/LEVODOPA 25/100MG TAB PO SCH (21:22)
--- NOTE | 2022-09-01 22:40 | Electrocardiogram Report ---
Test Reason : Blood Pressure : / mmHG Vent. Rate : 075 BPM Atrial Rate : 075 BPM P-R Int : 184 ms QRS Dur : 082 ms QT Int : 368 ms P-R-T Axes : 052 014 034 degrees QTc Int : 410 ms Poor data quality, interpretation may be adversely affected Normal sinus rhythm Normal ECG When compared with ECG of 09-NOV-2016 15:40, No significant change was found Confirmed by Stanislaw Hadley ([id number]) on 09/01/2022 10:39:31 PM Referred By: REFERRED SELF Confirmed By:Stanislaw Hadley
--- NOTE | 2022-09-02 07:34 | Discharge Summary ---
Date of Service September 02, 2022 Admission HPI Per Admitting Provider Sunil is an 87 year old male w/ PmHx Parkinson's with R sided weakness and sialorrhea, dysphagia, GERD, HTN, HLD, Hx of DVT on warfarin, carotid artery stenosis, BPH, constipation coming in for new onset blurry vision that lasted for 30 minutes earlier in the day. Patient states that earlier today he was out getting mail when he took a look at the mail and started to notice the words looked like one blurry line. He had some difficulty with near and far sighted vision like this for about 30 minutes. He did not feel quite right and went to lay down for a good bit of time. Denies fevers, chills, recent URI, urinary complaint, diarrhea. He states he previously had some vascular stenosis for which he saw Dr. Alegria for 2 or 3 years prior and was told to follow up again in 2022. He is not a smoker and only drinks one glass of wine every week. In the ED CBC and CMP unremarkable, INR 2.9. CXR, CT and CTA head unremarkable. CTA neck showed L proximal internal carotid artery stenosis 80-90% and 80% R internal carotid artery stenosis. Principal Diagnosis TIA Discharge Exam Constitutional: WD/WN, vitals as above Respiratory: normal respiratory effort, lungs clear to auscultation Cardiovascular: RRR, no murmur, no edema Gastrointestinal (Abdomen): normal bowel sounds, soft, nontender, no hepatosplenomegaly Skin: no rashes, warm and dry Neurologic: AOx3, no focal motor or sensory deficits, CN 2-12 intact, gait not assessed Psychiatric: A+Ox3, euthymic affect Discharge Data Allergies Allergy/AdvReac Type Severity Reaction Status Date / Time No Known Drug Allergies Allergy Unknown Verified 08/31/22 23:29 glycopyrrolate AdvReac Intermediate Unknown Uncoded 08/31/22 23:29 Consultations 08/31/22 21:32 ED Decision to Admit Stat 09/01/22 01:40 Consult Vascular Surgery Routine 09/01/22 11:50 Consult Neurology Routine Ordered Studies 08/31/22 17:21 CT angio head w con Stat CT angio neck with con Stat CT head/brain wo con Stat 08/31/22 23:07 MRI Brain [MR brain wo con] Stat Hospital Course (1) Blurred vision: 87 y/o M w/ complex PmHx admitted for new onset blurry vision, concern for TIA. Transient visual disturbance: -Symptoms lasting 30 minutes- blurry vision -CT head, CTA head, MRI brain negative for any acute process -CTA neck with new worsening L and R ICA stenosis, 80%+ severity -Suspect likely due to small vessel ischemia of cerebral ischemia with con tribution from carotid artery stenoses -Neurology consult -Brain MRI + presentation suggest PRES 2/2 hypertensive urgency -Will likely need surgical intervention for his bilateral carotid disease in the future -Recommending aspirin and atorvastatin -Initiated aspirin + losartan -- tolerating well - Continue on ASA, switch to daily olmesartan at DC for longer half-life -Continue atorvastatin 40mg qPM Carotid artery stenosis: -As above, consulted vascular for worsening stenosis -Continue home atorvastatin 40mg -Pt does have outpatient vascular surgery f/u in September 2022 HTN: -Not on any home medications -Started losartan 25 mg Parkinsons/sialorrhea: -Continue home carbidopa-levodopa -Drooling/sialorrhea better over course of day GERD: -Continue home pantoprazole 40mg daily Hx of DVT: -Supratherapeutic INR 2.9, monitor and resume warfarin as appropriate Dispo: DC -- PCP & Vascular Sx f/u (2) Parkinsons disease: (3) Hypertension: (4) On anticoagulant therapy: (5) GERD (gastroesophageal reflux disease): (6) BPH (benign prostatic hyperplasia): (7) Higgins's esophagus: (8) History of deep vein thrombosis: (9) Sialorrhea: (10) Hyperlipidemia: (11) Gout: (12) Carotid artery stenosis: Total Time Total Time Spent Total Time Spent (In Minutes): See attending attestation Discharge Plan Discharge Items Patient Disposition: Home - Self-Care Reason For Visit: BLURRY VISION Discharge Diagnosis: TIA/PRES Activity: Per Instructions section Non-emergency contact: Primary Care Provider Call non-emergency contact if: you have any medication questions and your symptoms worsen Follow-up/Referrals: Elli Chung DO [Primary Care Provider] - 09/12/22 9:20 am Diet: Heart Healthy Addtl Attending Provider Instructions: You were admitted to [facility] due to a transient change in your vision. As such, work-up was done to rule out a stroke as the possible cause. No stroke was identified but there were some changes in your MRI, which indicated a possible reversible decrease in blood flow as the cause of your symptoms. You were also found to have carotid artery blockages in both of your arteries, which could've contributed to your symptoms as well. For the time being, this will be managed with some changed to your medications. You were started on aspiring 81mg daily and olmesartan 20mg daily. The aspirin will work as an anti-platelet medication, essentially making it less likely that you will form blood clots in your brain or anywhere else in your body. This will work in a slightly different manner than your warfarin and you should continue to take both medications unless otherwise instructed in the future. The olmesartan will work to keep your blood pressure under adequate control. It will be important that you continue taking all of your other prescribed medications, especially your atorvastatin 40mg every night. We recommend that you follow up with your PCP and discuss the carotid artery blockages. You will likely benefit from a consult with Vascular Surgery as an outpatient to plan for surgical intervention/opening of the blockages. If your symptoms return or you experience any new neurologic symptoms such as on e-sided weakness, speech difficulties, confusion, dizziness, or any other abnormal symptoms. Please return to the hospital for reevaluation. Pending Studies at Discharge: No Stand-Alone Forms: My [facility], Smoking Cessation Medications and DC Order Prescriptions: New olmesartan 20 mg tablet 20 mg PO DAILY 30 Days Qty: 30 0RF aspirin [Children's Aspirin] 81 mg Tablet,Chewable 81 mg PO DAILY 30 Days Qty: 30 0RF Continued One-A-Day Men's Multivitamin 400-20-300 mcg tablet 1 tab PO DAILY warfarin 3 mg tablet See Rx Instructions PO UD Dose Instruction: TAKE ONE TABLET BY MOUTH ONCE DAILY OR DIRECTED Rx Instructions: 1.5mg q /, 3mg x 5 days per [facility] orally use as directed; atorvastatin 40 mg tablet 40 mg PO QPM Qty: 90 3RF carbidopa-levodopa 25-100 mg tablet 0.5 tab PO TID Qty: 90 1RF acetaminophen [Acetaminophen Extra Strength] 500 mg Tablet 1,000 mg PO BID PRN (Reason: Pain) pantoprazole 40 mg tablet,delayed release (DR/EC) 40 mg PO QPM Discharge Orders: Discharge Order (Routine); Ordered 09/02/22 [facility] Admit Date/Time: 08/31/22 23:07 Attending Provider: Toribio Marie Admit Provider: Jones Rodriguez Primary Care Provider: Elli Chung Other Providers: Nilson Lewis ; Renan Alegria ; Silas Morales ; Henry Lu ; Mignon Joseph ; Caroline Camara ; Angelita Pate ; Simon Ayala ; Angelita Mendez ; Hans Bustos ; Liam Villar ; Harriett Alba ; Grisel Slade ; Simon Broussard ; Harry Spear Other Interventions: Discharge Summary Assessment (RN) Last Done: 09/02/22 13:16 Supervising Physician Co-Signing Physician Notes I personally examined the patient and verified all dsouza points of history and exam, discussed case, and agree with decision making with Dr Magallanes feels good feels up to going home steady enough that he can be safe at home. vitals noted nad heent nc at mmm breathing unlabored no accessory muscles good effort skin no rashes no pallor or icterus Cerebrovascular ischemiaappreciate neurology inputPRES mechanism seems to be most likely, certainly has risk for small vessel intracranial atherosclerosis, and has large vessel carotid disease as well but this was probably not symptomatic at this event - but close vascular f/u due to progression/risk. Med management, secondary risk reduction. safe/stable for home. otherwise as above, close PCP and vascular surgery follow up Resident Activity Tracking Resident Involvement: Resident Care Provided Care Provided: Adult Hospital Medicine
[2022-09-02 07:37] LABS: INR 2.1 (0.9-1.1); Prothrombin Time 21.6 Seconds (9.0-12.0)
[2022-09-02] MEDS: CARBIDOPA/LEVODOPA 25/100MG TAB PO SCH (07:49)
[2022-09-02] MEDS: ASPIRIN 81 MG CHEW PO SCH (07:49)
[2022-09-02] MEDS: POLYETHYLENE (MIRALAX) 17 GM PACK PO SCH (07:49)
[2022-09-02] MEDS: LOSARTAN POTASSIUM 25 MG TAB PO SCH (07:50)
[2022-09-02] MEDS ORDERED: MULTIVITAMIN TAB PO SCH (09:00)
--- NOTE | 2022-09-02 17:55 | Billing Data ---
Date of Service September 02, 2022 Coding Level of Care Code 60149 IN/OBS DISCH 30 MIN/LESS
--- NOTE | 2022-09-06 07:45 | Consultation ---
Date of Consultation September 06, 2022 History of Present Illness Attending Physician: Toribio Marie DO History of Present Illness On vacation. Allergies Allergy/AdvReac Type Severity Reaction Status Date / Time No Known Drug Allergies Allergy Unknown Verified 08/31/22 23:29 glycopyrrolate AdvReac Intermediate Unknown Uncoded 08/31/22 23:29 Home Medications Medication Instructions Recorded Confirmed Type acetaminophen 500 mg tablet 1,000 mg PO BID PRN Pain 02/09/18 09/05/22 History (Acetaminophen Extra Strength) qmjlnhel-hggoupqn-tmugf acid 400 1 tab PO DAILY 07/15/21 09/05/22 History mcg-vit K 20 mcg-lycop 300 mcg tablet (One-A-Day Men's Multivitamin) warfarin 3 mg tablet See Rx Instructions PO UD 05/10/22 09/05/22 History carbidopa 25 mg-levodopa 100 mg 0.5 tab PO TID #90 tabs 07/06/22 09/05/22 Rx tablet atorvastatin 40 mg tablet 40 mg PO QPM #90 tabs 08/16/22 09/05/22 Rx pantoprazole 40 mg tablet,delayed 40 mg PO QPM 08/31/22 09/05/22 History release aspirin 81 mg chewable tablet 81 mg PO DAILY 30 days #30 tabs 09/02/22 09/05/22 Rx (Children's Aspirin) olmesartan 20 mg tablet 20 mg PO DAILY 30 days #30 tabs 09/02/22 09/05/22 Rx Patient History Medical History Anemia Higgins's esophagus BPH (benign prostatic hyperplasia) Carotid artery stenosis Deep vein thrombosis Diaphragmatic hernia Diverticulosis GERD (gastroesophageal reflux disease) Gout History of deep vein thrombosis 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) Hyperlipidemia Hypertension Lumbar canal stenosis Lumbar radiculopathy Monoclonal gammopathy of undetermined significance On anticoagulant therapy Prediabetes Tubular adenoma of colon Urinary incontinence Vitamin D deficiency Surgical History History of bilateral cataract extraction History of blepharoplasty (03/2007) History of colonoscopy History of tooth extraction Hx of vasectomy S/P TURP (02/2011) Family History Other No family history of bleeding disorder Denies family history of Ovarian cancer Prostate cancer Myocardial infarction Breast cancer Colorectal cancer Social History Smoking Status: Former smoker Second Hand Exposure: No; Do You Dip or Chew Tobacco: No; Hx Alcohol Use: Yes Alcohol type: wine Alcohol Intake Frequency: Monthly or Less Hx Substance Use: No Preferred Language: Chinese Communication Ability: Effective Visual Impairment: Limited Hearing Ability: Use of Hearing Aid Electrician'S Helper Required: No Beliefs That Will Affect Care: None marital status: Current Living Situation: Spouse current occupational status: retired How many Children do You have: 1 Feels Safe at Home: Yes Childhood Exposure to Second-Hand Smoke: Yes (father smoked ) Diet: regular Diet Comment: regular caffeine: Yes during the past year weight has: remained stable Dental Care, Regularly: Yes Physical Activity Frequency: Daily Seatbelt Use: always Sunscreen Use: No Assistive Devices: None
== END 2022-09-02 13:36 | disposition home or self-care (01) | DRG 68 ==
LOC: ED 17:13 → 2N 09-01 00:27 → SUATTDRO 09-01 00:27 → 2N 09-01 01:28

== ENCOUNTER 2022-09-16 18:12 | Inpatient (IN) ==
--- NOTE | 2022-09-16 20:03 | CT Scan Report ---
ABDOMEN AND PELVIS CT WITHOUT CONTRAST CT DOSE: 876.50 mGy.cm HISTORY: Generalized abdominal pain TECHNIQUE: Multiaxial CT images of the abdomen and pelvis were performed without contrast. A dose lo wering technique was utilized adhering to the principles of ALARA. COMPARISON STUDY: Abdomen and pelvis CT 04/04/2015. FINDINGS: The lung bases are essentially clear. No pneumoperitoneum. No pneumatosis. Mild anterior we dging within the lower thoracic spine vertebral bodies. No acute fractures identified. There are old, healed right-sided rib fractures noted. There is a small hiatus hernia. Small bilateral inguinal her nias are noted. There is motion artifact. The unenhanced liver, gallbladder, pancreas, spleen, and ad renal glands unremarkable. There is a small right renal cyst. No renal stones. No hydronephrosis. Nor mal caliber abdominal aorta with mild calcified plaque. No retroperitoneal lymphadenopathy. No pelvic lymphadenopathy or pelvic free fluid. The prostate gland is mildly enlarged. There is mild bladder w all thickening. This could be due to underdistention. Large amount well-formed stool seen within the distal sigmoid colon and rectum. There is mild rectal wall thickening with perirectal edema/fat stran ding. Findings are concerning for a stercoral proctitis. Colonic diverticulosis. No evidence for acut e diverticulitis. There is moderate well-formed stool seen throughout the remaining colon. No dilated loops of bowel to suggest an obstruction. Normal appendix. IMPRESSION: 1. Large amount well-formed stool seen within the distal sigmoid colon and rectum. There is mild rect al wall thickening with perirectal edema/fat stranding. Findings are concerning for a stercoral proct itis. 2. Additional findings as described above. ACT 112: Negative or not required by law. Electronically signed by: Woodrow Stiles M.D. 09/16/2022 8:01 PM
--- NOTE | 2022-09-16 20:14 | Emergency Department Note ---
Impression & Plan Acute constipation, Stercoral colitis ED Provider Note INFORMANT: Patient and family ED PROVIDER(S): Simon Glass MD CHIEF COMPLAINT: Abdominal pain and constipation PLAN: Disposition: Admitted Condition: Good Outpatient prescription management: none Referral: None MEDICAL DECISION MAKING: Patient presented because of constipation issues and complaining of abdominal p ain. He had lower tenderness on examination. He underwent a work-up. He was found to have a mildly elevated leukocytosis and his creatinine was slightly elevated. He underwent CT imaging was found to have stercoral colitis. I did discuss this with GI on-call, Dr. Medina. He recommended a bowel cleanout and thought admission for this was reasonable given the patient's age and laboratory abnormalities. He did not recommend IV antibiotics at this time. Patient underwent manual disimpaction by me. No complication. Patient had enema, milk of molasses ordered. Further management will be necessary in the hospital. Discussed with family and patient. Consultation was made with Dr. Nilson styles of the [facility] service. Patient was evaluated in the ER for further management. Discussed with digital marketing manager. After review of the information above and other included data, I feel the patient requires admission. Triage Nursing notes reviewed and agree them. Vital Signs: reviewed and remarkable for no significant abnormalities Prior /Outside records reviewed: Prior visit record reviewed. Differential diagnosis: Functional constipation, impaction, obstruction, volvulus, metabolic abnormality, infection, neurologic, as well as other pathologies. Diagnostics, as interpreted by me: ECG: none Cardiac Monitoring: Cardiac monitoring ordered by me: The patient was placed on continuous cardiac monitoring and observed. It revealed a normal sinus rhythm at 60 beats per minute without ectopy or evidence of dysrhythmia. Medical decision rules: none Imaging studies: CT imaging as noted above. Stercoral colitis. Moderate stool burden. I refer you to the EMR for further details. HPI: The patient is a 87 year old male who presents to the Emergency Room with complaints of constipation. This started a week ago and is persisting. The patient also notes the following associated symptoms, lower abdominal rectal pain. The patient has tried suppositories for relieving factors. Current pain is rated as 5/10. Pt denies LOC, headache, fevers, chills, diaphoresis, visual changes, neck pain, chest pain, breathing difficulties, nausea, vomiting, back pain, melena, hematochezia, urinary symptoms, weakness, or other complaints. PAST MEDICAL HISTORY: See Below, carotid artery stenosis, hypertension PAST SURGICAL HISTORY: See Below, SOCIAL HISTORY: See Below, HOME MEDICATIONS: See Below ALLERGIES: See Below VITALS: See Below PHYSICAL EXAMINATION: GENERAL: Awake, alert, well-appearing, in no distress HENT: Normocephalic, atraumatic. Oropharynx unremarkable. EYES: Normal conjunctiva. Sclera non-icteric. NECK: Inspection normal. Non-tender. Supple. No nuchal rigidity. FROM. No masses. RESPIRATORY: Clear to auscultation. No wheezes. No rales. Normal respiratory effort. CARDIAC: Normal rate. Normal rhythm. No murmurs. No rubs. Extremities warm and well perfused. Pulses equal. No JVD. GI: Soft, non-distended. No tenderness to palpation. No rebound or guarding. No masses. RECTAL: Deferred. MUSCULOSKELETAL: Atraumatic. Chest examination reveals no tenderness. The back is symmetrical on inspection without obvious abnormality. There is no CVA tenderness to palpation. No joint edema. LOWER EXTREMITIES: Calves are equal size bilaterally and non-tender. No edema. No discoloration. NEURO: Normal sensorium. No sensory or motor deficits noted. SKIN: No rash or jaundice noted. 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) Hx of colonic polyps Hyperlipidemia Hypertension Lumbar canal stenosis On anticoagulant therapy WARFARIN DAILY, RECENTLY STARTED ON PLAVIX Parkinsons disease Prediabetes Stroke-like symptoms 08/2022- elevated bp, blurred vision, light headed; was seen and treated at [facility] Surgical History History of bilateral cataract extraction History of blepharoplasty (03/2007) L History of colonoscopy History of tooth extraction upper teeth Hx of vasectomy S/P TURP (02/2011) Family History Other No family history of bleeding disorder Denies family history of Ovarian cancer Prostate cancer Myocardial infarction Breast cancer Colorectal cancer Social History Smoking Status: Former smoker Cigarettes Per Day: QUIT WHEN HE WAS IN HIS EARLY 20'S; Second Hand Exposure: No; Do You Dip or Chew Tobacco: No; Hx Alcohol Use: Yes Alcohol type: wine Alcohol Intake Frequency: Monthly or Less Hx Substance Use: No Preferred Language: Dominican Communication Ability: Effective Visual Impairment: Limited Hearing Ability: Use of Hearing Aid Nutrition Program Instructor Required: No Beliefs That Will Affect Care: None marital status: Current Living Situation: Spouse current occupational status: retired How many Children do You have: 1 Feels Safe at Home: Yes Childhood Exposure to Second-Hand Smoke: Yes (father smoked ) Diet: regular Diet Comment: regular caffeine: Yes during the past year weight has: remained stable Dental Care, Regularly: Yes Physical Activity Frequency: Daily Seatbelt Use: always Sunscreen Use: No Assistive Devices: Denture - Upper, Glasses and Hearing Aid - Bilateral Allergies Allergies Allergy/AdvReac Type Severity Reaction Status Date / Time No Known Drug Allergies Allergy Unknown Verified 09/12/22 09:23 glycopyrrolate AdvReac Intermediate frequent Verified 09/17/22 01:03 urination, difficulty urinating, dribbling urine Home Meds Home Medications Medication Instructions Recorded Confirmed acetaminophen 500 mg tablet 1,000 mg PO BID PRN Pain 02/09/18 09/16/22 (Acetaminophen Extra Strength) dlamxkme-yosaagyz-fqpax acid 400 1 tab PO QAM 07/15/21 09/16/22 mcg-vit K 20 mcg-lycop 300 mcg tablet (One-A-Day Men's Multivitamin) pantoprazole 40 mg tablet,delayed 40 mg PO QPM 08/31/22 09/16/22 release warfarin 2 mg tablet 2 mg PO UD 09/12/22 09/16/22 clopidogrel 75 mg tablet (Plavix) 75 mg PO QAM 09/14/22 09/16/22 Previous Rx's Medication Instructions Recorded carbidopa 25 mg-levodopa 100 mg 0.5 tab PO TID #90 tabs 07/06/22 tablet atorvastatin 40 mg tablet 40 mg PO QPM #90 tabs 08/16/22 aspirin 81 mg chewable tablet 81 mg PO DAILY 30 days #30 tabs 09/02/22 (Children's Aspirin) olmesartan 20 mg tablet 10 mg PO DAILY 30 days #15 tabs 09/16/22 polyethylene glycol 3350 17 gram 34 g PO DAILY 30 days #60 ea 09/17/22 oral powder packet (Miralax) Results & Data (ED) Vital Signs Vital Signs - 24 hr 09/16/22 18:12 09/16/22 19:30 Temperature 36.6 C Temperature Source Temporal Artery Scan Pulse Rate 76 77 Respiratory Rate 18 18 Respiratory Effort / Characteristics Non-Labored Spontaneous Respiratory Depth Normal Blood Pressure 128/70 Blood Pressure Mean 89 Blood Pressure Position Sitting Pulse Oximetry 91 93 Oxygen Delivery Method Room Air Room Air Sepsis Recent Fever Within 48 Hours No Sepsis New/Unexplained Change in Mental Status N/A Sepsis Action Taken by Nursing No Action Required Laboratory Data 09/17/22 07:42 09/17/22 07:42 Lab Results 09/16/22 09/16/22 Range/Units 19:50 22:10 Lipase 11 (11-82) U/L SARS-CoV-2, RNA, NAAT NEGATIVE (NEGATIVE) Administered Medications Discontinued Medications Aspirin (Aspirin 81 Mg Chew) 81 mg PO DAILY DARION Stop: 10/17/22 08:59 Last Admin: 09/17/22 08:00 Dose: 81 mg Documented By: SINGH Bisacodyl (Bisacodyl 10 Mg Supp) 10 mg SC NOW STA Stop: 09/17/22 00:58 Last Admin: 09/17/22 02:33 Dose: 10 mg Documented By: REED Carbidopa/Levodopa (Carbidopa/Levodopa 25/100mg Tab) 0.5 tab PO TID DARION Stop: 10/17/22 08:59 Last Admin: 09/17/22 08:01 Dose: 0.5 tab Documented By: SINGH Clopidogrel Bisulfate (Clopidogrel Bisulfate 75 Mg Tab) 75 mg PO QAM DARION Stop: 10/17/22 08:59 Last Admin: 09/17/22 08:01 Dose: 75 mg Documented By: SINGH Sodium Chloride (Nss 1000ml) 1,000 mls @ 125 mls/hr IV .Q8H DARION Stop: 10/16/22 21:29 Last Infusion: 09/17/22 00:10 Dose: 0 mls/hr Documented By: Infusion: 09/16/22 23:25 Dose: 100 mls/hr Documented By: Admin: 09/16/22 22:20 Dose: 125 mls/hr Documented By: QGV Lactated Ringer's (Lr) 1,000 mls @ 125 mls/hr IV .Q8H DARION Stop: 09/17/22 08:59 Last Infusion: 09/17/22 11:23 Dose: 0 mls/hr Documented By: Admin: 09/17/22 02:09 Dose: 125 mls/hr Documented By: REED Lactulose (Lactulose Syrup 20 Gm/30 Ml Udc) 20 gm PO NOW STA Stop: 09/17/22 01:31 Last Admin: 09/17/22 02:09 Dose: 20 gm Documented By: REED Losartan Potassium (Losartan Potassium 25 Mg Tab) 25 mg PO DAILY DARION Stop: 10/17/22 08:59 Last Admin: 09/17/22 08:00 Dose: 25 mg Documented By: SINGH Lubiprostone (Lubiprostone 8 Mcg Cap) 24 mcg PO BID DARION Stop: 10/17/22 08:59 Last Admin: 09/17/22 08:01 Dose: 24 mcg Documented By: SINGH Polyethylene Glycol (Polyethylene (Miralax) 17 Gm Pack) 34 gm PO DAILY DARION Stop: 10/17/22 08:59 Last Admin: 09/17/22 08:02 Dose: 34 gm Documented By: SINGH Polyethylene Glycol (Polyethylene (Miralax) 17 Gm Pack) 17 gm PO NOW STA Stop: 09/17/22 00:58 Last Admin: 09/17/22 02:10 Dose: 17 gm Documented By: REED Imaging Data Radiologist's Impression: Abdomen/Pelvis CT 09/16/22 19:[address] WITHOUT CONTRAST CT DOSE: 876.50 mGy.cm HISTORY: Generalized abdominal pain TECHNIQUE: Multiaxial CT images of the abdomen and pelvis were performed without contrast. A dose lowering technique was utilized adhering to the principles of ALARA. COMPARISON STUDY: Abdomen and pelvis CT 04/04/2015. FINDINGS: The lung bases are essentially clear. No pneumoperitoneum. No pneumatosis. Mild anterior wedging within the lower thoracic spine vertebral bodies. No acute fractures identified. There are old, healed right-sided rib fractures noted. There is a small hiatus hernia. Small bilateral inguinal hernias are noted. There is motion artifact. The unenhanced liver, gallbladder, pancreas, spleen, and adrenal glands unremarkable. There is a small right renal cyst. No renal stones. No hydronephrosis. Normal caliber abdominal aorta with mild calcified plaque. No retroperitoneal lymphadenopathy. No pelvic lymphadenopathy or pelvic free fluid. The prostate gland is mildly enlarged. There is mild bladder wall thickening. This could be due to underdistention. Large amount well-formed stool seen within the distal sigmoid colon and rectum. There is mild rectal wall thickening with perirectal edema/fat stranding. Findings are concerning for a stercoral proctitis. Colonic diverticulosis. No evidence for acute diverticulitis. There is moderate well-formed stool seen throughout the remaining colon. No dilated loops of bowel to suggest an obstruction. Normal appendix. IMPRESSION: 1. Large amount well-formed stool seen within the distal sigmoid colon and rectum. There is mild rectal wall thickening with perirectal edema/fat stranding. Findings are concerning for a stercoral proctitis. 2. Additional findings as described above. ACT 112: Negative or not required by law. Electronically signed by: Woodrow Stiles M.D. 09/16/2022 8:01 PM Discharge Plan Visit Data Chief Complaint: Constipation Stated Complaint: BOWEL OBSTRUCTION ED Provider: Simon Glass Discharge Problem: Acute constipation, Stercoral colitis Patient Disposition: Admitted As Inpatient Discharge Instructions Interventions: ED Discharge Assessment Last Done: 09/16/22 23:56
[2022-09-16] MEDS ORDERED: SODIUM CHLORIDE 0.9% 1000ML 1,000 ML IV SCH (21:30)
--- NOTE | 2022-09-16 22:48 | History & Physical Report ---
Date of Service September 16, 2022 Assessment & Plan (1) Constipation: Plan: 87 M with PMH including hypertension, GERD, Parkinson's, lumbar radiculopathy, carotid artery stenosis, previous DVT, who presented to the emergency room with 1 week of constipation. Now admitted for management of constipation with evidence of stercoral colitis on imaging. Constipation/stercoral colitis -Afebrile with mild leukocytosis on arrival. -CT A/P: Large amount of well-formed stool within the distal sigmoid colon, rectum. Mild rectal wall thickening with perirectal edema/fat stranding. Findings concerning for stercoral proctitis. No evidence of obstruction. -S/p failed fecal disimpaction, milk of molasses enema in the emergency room. Other than Dulcolax enema given on admission, opted for p.o. bowel regimen instead. -MiraLAX x1 packet, lactulose, Dulcolax SC ordered to be given on admission. -Does not appear to be chronic. No opioid use or chronic bowel regimen. No new medications. -Given amount of stool seen on CT, precipitating factors (age, Parkinson's), slow transit constipation/chronic constipation not unreasonable * Admit to MedSurg + telemetry * Hold initiation of antibiotics, per GI discussion with ER physician. Consider revisiting in the a.m. * N.p.o. except for oral medications. IV LR@125 mL/h * Refraining from further enema, disimpaction attempts for now. * P.o./SC bowel regimen: MiraLAX 34 g daily, lubiprostone 24 mcg twice daily, milk of magnesia every 6 hours as needed. Reasonable to d/c lubiprostone if constipation resolves. * Trend BMP, CBC ROBIN -Creatinine 1.65 on admission (baseline creatinine 1.0-1.2). -Likely prerenal. No hydronephrosis on CT, dysuria, or hematuria. * Lactated Ringer's@125 mL/h * Trend creatinine. Carotid artery stenosis -Admitted to the hospital last month for blurry vision, found to have bilateral worsening ICA stenosis. -80% narrowing of left carotid, 90% narrowing in right carotid. -Seen by Dr. Alegria of [facility] vascular surgery. TCAR of left carotid tentatively scheduled for the next few weeks, right carotid x1 month later. -Review of most recent [facility] outpatient note shows he was started on Plavix for the procedure. Already takes aspirin 81 mg * Continue Plavix 75 mg every morning. * Continue aspirin 81 mg every morning. History of DVT on anticoagulation -Chronic; managed on warfarin by [facility] anticoagulation clinic. -Warfarin recently decreased to 2 mg, from 3 mg daily. Goal INR 2-3. -New regimen: 2 mg daily, 4 mg on . -INR supratherapeutic (3.3) on admission. May be due to double dose from . * Continue warfarin 2 mg. Consider holding dose x1 day if INR fails to trend towards goal range * Trend daily INR Hypertension -Chronic; managed on olmesartan 10 mg daily. * Continue home regimen Hyperlipidemia -Chronic; managed on atorvastatin 40 mg nightly. * Held on admission Parkinson disease -Chronic; managed on carbidopa 25 mg-levodopa 100 mg tablet (1/2 tab 3 times daily) * Continue home regimen GERD -Chronic; managed on pantoprazole 40 mg p.o. every afternoon * Holding due to potential interaction with Plavix. Lumbar radiculopathy -Chronic; managed on as needed Tylenol 1000 mg twice daily * Continue home regimen. Code: Full code Dispo: Med-Surg telemetry FEN/GI: NPO. LR @maintenance rate DVT Prophylaxis: Warfarin as above. Also on Plavix PT/OT: No Consults: None Case Management: No (2) ROBIN (acute kidney injury): (3) Stercoral colitis: (4) Hypertension: (5) GERD (gastroesophageal reflux disease): (6) Hyperlipidemia: (7) Parkinsons disease: (8) Lumbar radiculopathy: (9) Carotid artery stenosis: History of Present Illness Primary Care Provider: DO Sunil Cruz is an 87-year-old man with past medical history of hypertension, hyperlipidemia, GERD, previous DVT (on warfarin), Parkinson's disease, and possible TIA, who presented to the emergency room for lower abdominal and rectal pain in the setting of constipation x1 week. Constipation has persisted despite trial of suppositories. Son called PCP, who recommended trying MiraLAX. His son visited his father to discuss trying the MiraLAX, but instead chose to bring him to the ED once he saw his father's condition. He denies fever, chills, nausea, vomiting, dysuria, melena, or hematochezia. In the emergency room, labs were notable for slight leukocytosis 11.13. He was disimpacted and received an enema, in addition to IV fluids. Case was discussed with product mgmt dev manager on-call, who recommended holding off on antibiotics at this time, admission for supervision overnight. Hospitalist was then consulted for admission. Allergies Allergy/AdvReac Type Severity Reaction Status Date / Time No Known Drug Allergies Allergy Unknown Verified 09/12/22 09:23 glycopyrrolate AdvReac Intermediate frequent Verified 09/17/22 01:03 urination, difficulty urinating, dribbling urine Home Medications Medication Instructions Recorded Confirmed Type acetaminophen 500 mg tablet 1,000 mg PO BID PRN Pain 02/09/18 09/16/22 History (Acetaminophen Extra Strength) tpeopirt-ytchvchj-hqwrk acid 400 1 tab PO QAM 07/15/21 09/16/22 History mcg-vit K 20 mcg-lycop 300 mcg tablet (One-A-Day Men's Multivitamin) carbidopa 25 mg-levodopa 100 mg 0.5 tab PO TID #90 tabs 07/06/22 09/16/22 Rx tablet atorvastatin 40 mg tablet 40 mg PO QPM #90 tabs 08/16/22 09/16/22 Rx pantoprazole 40 mg tablet,delayed 40 mg PO QPM 08/31/22 09/16/22 History release aspirin 81 mg chewable tablet 81 mg PO DAILY 30 days #30 tabs 09/02/22 09/16/22 Rx (Children's Aspirin) warfarin 2 mg tablet 2 mg PO UD 09/12/22 09/16/22 History clopidogrel 75 mg tablet (Plavix) 75 mg PO QAM 09/14/22 09/16/22 History olmesartan 20 mg tablet 10 mg PO DAILY 30 days #15 tabs 09/16/22 09/16/22 Rx polyethylene glycol 3350 17 gram 34 g PO DAILY 30 days #60 ea 09/17/22 Rx oral powder packet (Miralax) 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) Hx of colonic polyps Hyperlipidemia Hypertension Lumbar canal stenosis On anticoagulant therapy WARFARIN DAILY, RECENTLY STARTED ON PLAVIX Parkinsons disease Prediabetes Stroke-like symptoms 08/2022- elevated bp, blurred vision, light headed; was seen and treated at [facility] Surgical History History of bilateral cataract extraction History of blepharoplasty (03/2007) L History of colonoscopy History of tooth extraction upper teeth Hx of vasectomy S/P TURP (02/2011) Family History Other No family history of bleeding disorder Denies family history of Ovarian cancer Prostate cancer Myocardial infarction Breast cancer Colorectal cancer Social History Smoking Status: Former smoker Cigarettes Per Day: QUIT WHEN HE WAS IN HIS EARLY 20'S; Second Hand Exposure: No; Do You Dip or Chew Tobacco: No; Hx Alcohol Use: Yes Alcohol type: wine Alcohol Intake Frequency: Monthly or Less Hx Substance Use: No Preferred Language: Estonian Communication Ability: Effective Visual Impairment: Limited Hearing Ability: Use of Hearing Aid Last Pattern Grader Required: No Beliefs That Will Affect Care: None marital status: Current Living Situation: Spouse current occupational status: retired How many Children do You have: 1 Feels Safe at Home: Yes Childhood Exposure to Second-Hand Smoke: Yes (father smoked ) Diet: regular Diet Comment: regular caffeine: Yes during the past year weight has: remained stable Dental Care, Regularly: Yes Physical Activity Frequency: Daily Seatbelt Use: always Sunscreen Use: No Assistive Devices: Denture - Upper, Glasses and Hearing Aid - Bilateral Review of Systems Review of Systems: All systems reviewed & are unremarkable except as noted in HPI & below Physical Exam Physical Exam: General: No acute distress HEENT: PERRLA. Normal conjunctiva, anicteric sclera. Oropharynx normal. Respiratory: Normal respiratory effort, CTABL. Cardiovascular: RRR without murmurs, gallops, or rubs. No pedal edema. GI: Mildly distended abdomen with bowel sounds heard on auscultation. Nontender x4 quadrants Neuro: Alert and oriented x3. Results & Data Results & Data Vital Signs (Past 12 Hours) Vital Signs Temp Pulse Pulse Resp BP BP Pulse Ox 09/16/22 22:18 68 18 163/73 H 96 09/16/22 19:30 77 18 93 09/16/22 18:12 36.6 C 76 18 128/70 91 O2 Del Method 09/16/22 22:18 Room Air 09/16/22 19:30 Room Air 09/16/22 18:12 Room Air Code Status & VTE Plan VTE Prophylaxis Plan VTE Prophylaxis will be ordered: Yes Supervising Physician Co-Signing Physician Notes Attending addendum: I have physically seen this patient, have supervised the medical residents activities, and agree with the H&P unless as otherwise noted. Assessment and Plan: Stercoral colitis/fecal retention- Disimpaction attempted in the ED, along with milk of molasses enema Bowel regimen to include MiraLAX, lactulose and Dulcolax suppository Work on IV fluid rehydration, LR 125 mils per hour No antibiotics per GI Acute kidney injury- Creatinine 1.65, with base 1.21- Secondary to GI issues LR as noted, repeat laboratories in a.m. Carotid stenosis- Continue aspirin and Plavix Tentative vascular surgery scheduled with Dr. Alegria Remaining orders and notations as noted Resident Activity Tracking Resident Involvement: Resident Care Provided Care Provided: Adult Hospital Medicine
[2022-09-17] MEDS ORDERED: MAGNESIUM HYDROXIDE SUSP 30 ML UDC PO PRN (00:57)
[2022-09-17] MEDS ORDERED: bisacodyL 10 MG SUPP PR STA (00:57)
[2022-09-17] MEDS ORDERED: POLYETHYLENE (MIRALAX) 17 GM PACK PO STA (00:57)
[2022-09-17] MEDS ORDERED: WARFARIN SOD 2 MG TAB PO SCH (00:57)
[2022-09-17] MEDS ORDERED: SORBITOL 70% 30ML UDC PO STA (00:57)
[2022-09-17] MEDS ORDERED: LACTATED RINGER'S 1,000 ML IV SCH (01:00)
[2022-09-17] MEDS ORDERED: LACTULOSE SYRUP 20 GM/30 ML UDC PO STA (01:30)
[2022-09-17 03:13] LABS: Appearance Urine Cloudy (Clear); Bacteria Urine Automated Negative (Negative); Bilirubin Urine Negative (Negative); Blood Urine Negative (Negative); Color Urine Yellow; Epithelial Cell Urine Auto >30 /lpf (0-5); Glucose Urine UA Negative (Negative); Ketones Urine Trace (Negative); Leukocyte Esterase Urine Trace (Negative); Nitrite Urine Negative (Negative); Protein Urine Negative (Negative); Urobilinogen Urine Negative (Negative)
--- NOTE | 2022-09-17 06:53 | Hospitalist Progress Note ---
Date of Service September 17, 2022 Assessment & Plan (1) Constipation: Plan: 87 M with PMH including hypertension, GERD, Parkinson's, lumbar radiculopathy, carotid artery stenosis, previous DVT, who presented to the emergency room with 1 week of constipation. Now admitted for management of constipation with evidence of stercoral colitis on imaging. Constipation/stercoral colitis -Afebrile with mild leukocytosis on arrival. -CT A/P: Large amount of well-formed stool within the distal sigmoid colon, rectum. Mild rectal wall thickening with perirectal edema/fat stranding. Findings concerning for stercoral proctitis. No evidence of obstruction. -S/p failed fecal disimpaction, milk of molasses enema in the emergency room. Other than Dulcolax enema given on admission, opted for p.o. bowel regimen instead. -MiraLAX x1 packet, lactulose, Dulcolax DC ordered to be given on admission. -Does not appear to be chronic. No opioid use or chronic bowel regimen. No new medications. -Given amount of stool seen on CT, precipitating factors (age, Parkinson's), slow transit constipation/chronic constipation not unreasonable * Admit to [facility] + telemetry * Hold initiation of antibiotics, per GI discussion with ER physician * Refraining from further enema, disimpaction attempts for now. * P.o./DC bowel regimen: MiraLAX 34 g daily, lubiprostone 24 mcg twice daily, milk of magnesia every 6 hours as needed. Reasonable to d/c lubiprostone if constipation resolves. -Had BM as of 09/17 in AM -- continue [place] [facility] working on dispo ROBIN -- resolved -Creatinine 1.65 on admission (baseline creatinine 1.0-1.2) -- downtrended to normal -Likely prerenal. No hydronephrosis on CT, dysuria, or hematuria -Trend creatinine Carotid artery stenosis -Admitted to the hospital last month for blurry vision, found to have bilateral worsening ICA stenosis. -80% narrowing of left carotid, 90% narrowing in right carotid. -Seen by Dr. Alegria of [facility] vascular surgery. TCAR of left carotid tentatively scheduled for the next few weeks, right carotid x1 month later. -Review of most recent [facility] outpatient note shows he was started on Plavix for the procedure. Already takes aspirin 81 mg * Continue Plavix 75 mg every morning. * Continue aspirin 81 mg every morning. 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 -Warfarin recently decreased to 2 mg, from 3 mg daily. Goal INR 2-3. -New regimen: 2 mg daily, 4 mg on . -INR supratherapeutic (3.3) on admission and up to 4.5 today -Hold warfarin -Trend INR daily Hypertension -Chronic; managed on olmesartan 10 mg daily. * Continue home regimen Hyperlipidemia -Chronic; managed on atorvastatin 40 mg nightly. * Held on admission Parkinson disease -Chronic; managed on carbidopa 25 mg-levodopa 100 mg tablet (1/2 tab 3 times daily) * Continue home regimen GERD -Chronic; managed on pantoprazole 40 mg p.o. every afternoon * Holding due to potential interaction with Plavix Lumbar radiculopathy -Chronic; managed on as needed Tylenol 1000 mg twice daily * Continue home regimen. Code: Full code Dispo: Med-Surg telemetry, PT/OT to evaluate needs prior to DC FEN/GI: Heart healthy diet DVT Prophylaxis: Warfarin on hold due to supratherapeutic INR (2) ROBIN (acute kidney injury): (3) Stercoral colitis: (4) Hypertension: (5) GERD (gastroesophageal reflux disease): (6) Hyperlipidemia: (7) Parkinsons disease: (8) Lumbar radiculopathy: (9) Carotid artery stenosis: Admission and Anticipated Discharge Date Admission Date: September 16, 2022 Subjective Patient seen at bedside. Reports feeling overall well but does feel hsi legs are weak and he was a bit "woozy" after coming back from bathroom. Did report a large brown BM earlier today. No blood. Denies f/c, n/v, abd pain, CP, palp, SOB. Review of Systems Review of Systems: per HPI Physical Exam Physical Exam: General: No acute distress HEENT: PERRLA. Normal conjunctiva, anicteric sclera. Oropharynx normal. Respiratory: Normal respiratory effort, CTABL. Cardiovascular: RRR without murmurs, gallops, or rubs. No pedal edema. GI: Mildly distended abdomen with bowel sounds heard on auscultation. Nontender x4 quadrants Neuro: Alert and oriented x3. No FND. Results & Data Results & Data Vital Signs (Past 12 Hours) Vital Signs Temp Pulse Pulse Resp BP Pulse Ox O2 Del Method 09/17/22 04:00 36.8 C 68 20 161/81 H 95 Room Air 09/17/22 00:41 77 09/17/22 00:10 Room Air 09/17/22 00:14 36.7 C 80 18 165/80 H 96 Room Air 09/16/22 23:27 76 16 148/71 H 95 Room Air 09/16/22 22:47 80 09/16/22 22:18 68 18 163/73 H 96 Room Air 09/16/22 19:30 77 18 93 Room Air Resident Activity Tracking Resident Involvement: Resident Care Provided Care Provided: Adult Hospital Medicine
[2022-09-17 08:26] LABS: Hematocrit (blood only) 34.2 % (42.0-52.0); Hemoglobin 11.8 g/dl (14.0-18.0); Mean Corpuscular Hemoglobin 32.3 pg (25.0-34.0); Mean Corpuscular Hgb Conc 34.5 g/dL (32.0-36.0); Mean Corpuscular Volume 93.7 fL (80.0-100.0); Mean Platelet Volume 9.6 fL (9.4-12.4); Platelet Count 172 K/uL (130-400); RDW Coefficient of Variation 12.9 % (11.5-14.5); RDW Standard Deviation 44.4 fL (36.4-46.3); Red Blood Count 3.65 M/uL (4.70-6.10); White Blood Count 11.48 K/ul (4.8-10.8)
[2022-09-17 08:36] LABS: BUN Creatinine Ratio 24.1 (10-20); Calcium 9.8 mg/dl (8.6-10.3); Creatinine Clr Calc Pharmacy 36.6 ml/min; Est GFR (African American) 55.3 ml/min; Est GFR (Non-African American) 47.7 ml/min; Magnesium 1.7 mg/dl (1.7-2.4); Phosphorus 3.1 mg/dl (2.5-4.9); Potassium 4.4 mmol/L (3.5-5.1)
[2022-09-17 08:59] LABS: INR 4.5 (0.9-1.1)
[2022-09-17] MEDS ORDERED: POLYETHYLENE (MIRALAX) 17 GM PACK PO SCH (09:00)
[2022-09-17] MEDS ORDERED: CARBIDOPA/LEVODOPA 25/100MG TAB PO SCH (09:00)
[2022-09-17] MEDS ORDERED: CLOPIDOGREL BISULFATE 75 MG TAB PO SCH (09:00)
[2022-09-17] MEDS ORDERED: ASPIRIN 81 MG CHEW PO SCH (09:00)
[2022-09-17] MEDS ORDERED: LOSARTAN POTASSIUM 25 MG TAB PO SCH (09:00)
[2022-09-17] MEDS ORDERED: LUBIPROSTONE 8 MCG CAP PO SCH (09:00)
--- NOTE | 2022-09-17 12:50 | Discharge Summary ---
Date of Service September 17, 2022 Admission HPI Per Admitting Provider Sunil is an 87-year-old man with past medical history of hypertension, hyperlipidemia, GERD, previous DVT (on warfarin), Parkinson's disease, and possible TIA, who presented to the emergency room for lower abdominal and rectal pain in the setting of constipation x1 week. Constipation has persisted despite trial of suppositories. Son called PCP, who recommended trying MiraLAX. His son visited his father to discuss trying the MiraLAX, but instead chose to bring him to the ED once he saw his father's condition. He denies fever, chills, nausea, vomiting, dysuria, melena, or hematochezia. In the emergency room, labs were notable for slight leukocytosis 11.13. He was disimpacted and received an enema, in addition to IV fluids. Case was discussed with fire control technician on-call, who recommended holding off on antibiotics at this time, admission for supervision overnight. Hospitalist was then consulted for admission. Principal Diagnosis Stercoral colitis Discharge Data Allergies Allergy/AdvReac Type Severity Reaction Status Date / Time No Known Drug Allergies Allergy Unknown Verified 09/12/22 09:23 glycopyrrolate AdvReac Intermediate frequent Verified 09/17/22 01:03 urination, difficulty urinating, dribbling urine Consultations 09/16/22 22:25 ED Decision to Admit Stat Ordered Studies 09/16/22 19:04 CT abd pelvis wo con Stat Hospital Course (1) Stercoral colitis: (2) ROBIN (acute kidney injury): (3) Lumbar radiculopathy: (4) Anemia: (5) Parkinsons disease: (6) Hypertension: (7) Hyperlipidemia: (8) Higgins's esophagus: Plan 87 M with PMH including hypertension, GERD, Parkinson's, lumbar radiculopathy, carotid artery stenosis, previous DVT, who presented to the emergency room with 1 week of constipation. Now admitted for management of constipation with evidence of stercoral colitis on imaging. Constipation/stercoral colitis -Afebrile with mild leukocytosis on arrival. -CT A/P: Large amount of well-formed stool within the distal sigmoid colon, rectum. Mild rectal wall thickening with perirectal edema/fat stranding. Findings concerning for stercoral proctitis. No evidence of obstruction. -S/p failed fecal disimpaction, milk of molasses enema in the emergency room. Other than Dulcolax enema given on admission, opted for p.o. bowel regimen instead. -MiraLAX x1 packet, lactulose, Dulcolax CT ordered to be given on admission. -Does not appear to be chronic. No opioid use or chronic bowel regimen. No new medications. -Given amount of stool seen on CT, precipitating factors (age, Parkinson's), slow transit constipation/chronic constipation not unreasonable * Admit to Med[facility] + telemetry * Hold initiation of antibiotics, per GI discussion with ER physician * Refraining from further enema, disimpaction attempts for now. * P.o./CT bowel regimen: MiraLAX 34 g daily, lubiprostone 24 mcg twice daily, milk of magnesia every 6 hours as needed. Reasonable to d/c lubiprostone if constipation resolves. -Had BM as of 09/17 in AM -- continue to [employer] while working on dispo ROBIN -- resolved -Creatinine 1.65 on admission (baseline creatinine 1.0-1.2) -- downtrended to normal -Likely prerenal. No hydronephrosis on CT, dysuria, or hematuria -Trend creatinine Carotid artery stenosis -Admitted to the hospital last month for blurry vision, found to have bilateral worsening ICA stenosis. -80% narrowing of left carotid, 90% narrowing in right carotid. -Seen by Dr. Alegria of [facility] vascular surgery. TCAR of left carotid tentatively scheduled for the next few weeks, right carotid x1 month later. -Review of most recent [facility] outpatient note shows he was started on Plavix for the procedure. Already takes aspirin 81 mg * Continue Plavix 75 mg every morning. * Continue aspirin 81 mg every morning. 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 -Warfarin recently decreased to 2 mg, from 3 mg daily. Goal INR 2-3. -New regimen: 2 mg daily, 4 mg on . -INR supratherapeutic (3.3) on admission and up to 4.5 today -Hold warfarin -Trend INR daily Hypertension -Chronic; managed on olmesartan 10 mg daily. * Continue home regimen Hyperlipidemia -Chronic; managed on atorvastatin 40 mg nightly. * Held on admission Parkinson disease -Chronic; managed on carbidopa 25 mg-levodopa 100 mg tablet (1/2 tab 3 times daily) * Continue home regimen GERD -Chronic; managed on pantoprazole 40 mg p.o. every afternoon * Holding due to potential interaction with Plavix Lumbar radiculopathy -Chronic; managed on as needed Tylenol 1000 mg twice daily * Continue home regimen. Code: Full code Dispo: Home with family Total Time Total Time Spent Total Time Spent (In Minutes): <30 Discharge Plan Discharge Items Patient Disposition: Home - Self-Care Reason For Visit: CONSTIPATION Discharge Diagnosis: Stercoral colitis Activity: Per Instructions section Non-emergency contact: Primary Care Provider Call non-emergency contact if: you have any medication questions and your symptoms worsen Follow-up/Referrals: Elli Chung DO [Primary Care Provider] - 09/27/22 10:20 am Diet: Heart Healthy Addtl Attending Provider Instructions: You were admitted to [facility] due to findings of inflammation of your colon secondary to significant constipation. As such, you were given an aggressive bowel regimen, which ultimately resulted in you having a bowel movement. As such, we recommend you return home with the following plan: * Take 2 capfuls (34g) of Miralax daily. You can take both capfuls at once or take one in the morning and one in the evening. You will want to monitor you bowel movements to ensure they continue to be regular and soft but not too loose. If they do become too loose, decrease the Miralax to 1 capful daily. If they remain hard or you have to strain to pass stool, increase to 3 or 4 capfuls daily. * If you need 5 or more capfuls in one day to have a bowel movement, please contact your primary care provider for further recommendations. Your INR was found to be elevated and as such we recommend that you hold off on taking warfarin for the time being. Get your INR checked on Tuesday 09/19 and if normalized you can restart the medication. Please communicate and follow up closely with the provider who usually manages your Coumadin. Continue to take all your other medications as previously prescribed. If you have severe symptoms such as fevers, chills, severe abdominal pain, intractable nausea/vomiting, or any other concerning symptoms, please return to the hospital for reevaluation. Pending Studies at Discharge: No Stand-Alone Forms: My [facility], Smoking Cessation Medications and DC Order Prescriptions: New polyethylene glycol 3350 [Miralax] 17 gram Powder In Packet 34 g PO DAILY 30 Days Qty: 60 0RF Continued One-A-Day Men's Multivitamin 400-20-300 mcg tablet 1 tab PO QAM atorvastatin 40 mg tablet 40 mg PO QPM Qty: 90 3RF olmesartan 20 mg tablet 10 mg PO DAILY 30 Days Qty: 15 0RF carbidopa-levodopa 25-100 mg tablet 0.5 tab PO TID Qty: 90 1RF warfarin 2 mg tablet 2 mg PO UD Rx Instructions: as directed by [facility] AC clinic acetaminophen [Acetaminophen Extra Strength] 500 mg Tablet 1,000 mg PO BID PRN (Reason: Pain) pantoprazole 40 mg tablet,delayed release (DR/EC) 40 mg PO QPM aspirin [Children's Aspirin] 81 mg Tablet,Chewable 81 mg PO DAILY 30 Days Qty: 30 0RF clopidogrel [Plavix] 75 mg Tablet 75 mg PO QAM Discharge Orders: Discharge Order (Routine); Ordered 09/17/22 Ordered By: Mark Leonardo Admission Data Admit Date/Time: 09/16/22 22:40 Attending Provider: Toribio Marie Admit Provider: Marzena Lam Primary Care Provider: Elli Chung Other Providers: Nilson Lewis Other Interventions: Discharge Summary Assessment (RN) Last Done: 09/17/22 13:46 Supervising Physician Co-Signing Physician Notes I personally examined the patient and verified all dsouza points of history and exam, discussed case, and agree with decision making with Dr Magallanes feeling better had BM would liek to go home. son and present - they both feel they can care for him in current state vitals noted nad breathing unlabored no accessory muscles good effort skin no rashes no pallor or icterus constipation/stercoral colitis - no need for abx. had BM. stable for home. outpt bowel regimen coumadin coagulopathy - hold till monday repeat INR then safe for home Resident Activity Tracking Resident Involvement: Resident Care Provided Care Provided: Adult Hospital Medicine
--- NOTE | 2022-09-17 12:52 | Communication Note ---
Date of Service: September 17, 2022 By CMS guidelines, a determination that the admission or continued stay is not medically necessary has been made by a member of the UR committee and a physici an for this hospital stay, therefore a Code 44 will be completed and the Inpatient admission will be changed to outpatient.
--- NOTE | 2022-09-17 15:07 | Billing Data ---
Date of Service September 17, 2022 Coding Level of Care Code 38538 IN/OBS DISCH 30 MIN/LESS
--- NOTE | 2022-09-18 19:40 | Billing Data ---
Date of Service September 18, 2022 Coding Level of Care Code 88350 INT INP/OBS CARE
== END 2022-09-17 14:30 | disposition home or self-care (01) | DRG 392 ==
LOC: ED 18:12 → INTOOBSV 22:40 → SUATTDRO 22:40 → OBSVTOIN 22:40 → 2N 22:40

== ENCOUNTER 2022-09-21 09:50 | Inpatient (IN) ==
--- NOTE | 2022-09-19 09:24 | Anesthesiology Consultation ---
Date of Service September 19, 2022 Assessment & Plan (1) Encounter for pre-operative examination: Plan - check coags STAT am DOS. - discharge summary 09/17/22 MN: "...Constipation/stercoral colitis-Afebrile with mild leukocytosis on arrival.-CT A/P: Large amount of well-formed stool within the distal sigmoid colon, rectum. Mild rectal wall thickening with perirectal edema/fat stranding. Findings concerning for stercoral proctitis. No evidence of obstruction-S/p failed fecal disimpaction, milk of molasses enema in the emergency room. Other than Dulcolax enema given on admission, opted for p.o. bowel regimen instead...ROBIN -- resolved-Creatinine 1.65 on admission (baseline creatinine 1.0-1.2) -- downtrended to normal...Carotid artery stenosis-Admitted to the hospital last month for blurry vision, found to have bilateral worsening ICA stenosis.-80% narrowing of left carotid, 90% narrowing in right carotid-Seen by Dr. Alegria of [facility] vascular surgery. TCAR of left carotid tentatively scheduled for the next few weeks, right carotid x1 month later..." - COVID screening: Per per assessment nurse on 09/14/2022: Travel screen negative, no known COVID-19 positive contacts or current COVID-19 related symptoms in past 2 weeks. To surgeon's discretion if preop COVID testing is needed. Chart Review Chart Review: Acceptable Risk for Surgery and Patient NOT seen in Pre Admission Testing History Surgery Operation Date: 09/21/22 12:00 Proposed Procedures p Left Transcarotid Artery Revascularization - Renan Alegria MD Height/Weight Height: 5 ft 7 in Weight: 78.018 kg Allergies Allergy/AdvReac Type Severity Reaction Status Date / Time No Known Drug Allergies Allergy Unknown Verified 09/12/22 09:23 glycopyrrolate AdvReac Intermediate frequent Verified 09/17/22 01:03 urination, difficulty urinating, dribbling urine Medications Home Medications Medication Instructions Recorded Confirmed Last Taken acetaminophen 500 mg tablet 1,000 mg PO BID PRN Pain 02/09/18 09/16/22 08/13/18 (Acetaminophen Extra Strength) 0800 cproqzxh-ckqxjiag-mmtmt acid 400 1 tab PO QAM 07/15/21 09/16/22 Unknown mcg-vit K 20 mcg-lycop 300 mcg tablet (One-A-Day Men's Multivitamin) carbidopa 25 mg-levodopa 100 mg 0.5 tab PO TID #90 tabs 07/06/22 09/16/22 Unknown tablet atorvastatin 40 mg tablet 40 mg PO QPM #90 tabs 08/16/22 09/16/22 Unknown pantoprazole 40 mg tablet,delayed 40 mg PO QPM 08/31/22 09/16/22 Unknown release aspirin 81 mg chewable tablet 81 mg PO DAILY 30 days #30 tabs 09/02/22 09/16/22 Unknown (Children's Aspirin) warfarin 2 mg tablet 2 mg PO UD 09/12/22 09/16/22 Unknown clopidogrel 75 mg tablet (Plavix) 75 mg PO QAM 09/14/22 09/16/22 Unknown olmesartan 20 mg tablet 10 mg PO DAILY 30 days #15 tabs 09/16/22 09/16/22 Unknown polyethylene glycol 3350 17 gram 34 g PO DAILY 30 days #60 ea 09/17/22 Unknown oral powder packet (Miralax) Past Medical History Medical History (Updated 09/19/22 @ 09:23 by Aniya Lopez PA-C) Higgins's esophagus Blurred vision BPH (benign prostatic hyperplasia) Carotid artery stenosis 80% stenosis R ICA, 80-90% stenosis L ICA Diaphragmatic hernia Diverticulosis Dysphagia DUE TO PARKINSONS GERD (gastroesophageal reflux disease) Gout History of COVID-19 04/2022- CONGESTION, STEEL, FATIGUE, RESOLVED History of deep vein thrombosis 8 YRS AGO, AFTER INJURY FROM AN ACCIDENT, TREATED WITH COUMADIN 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) Hx of colonic polyps Hyperlipidemia Hypertension Lumbar canal stenosis Monoclonal gammopathy of undetermined significance On anticoagulant therapy WARFARIN DAILY, RECENTLY STARTED ON PLAVIX Parkinsons disease Prediabetes Stroke-like symptoms 08/2022- elevated bp, blurred vision, light headed; was seen and treated at [facility] Past Family History Family History Other No family history of bleeding disorder Denies family history of Ovarian cancer Prostate cancer Myocardial infarction Breast cancer Colorectal cancer Past Surgical History Surgical History (Updated 09/19/22 @ 09:18 by Aniya Lopez PA-C) History of bilateral cataract extraction History of blepharoplasty (03/2007) L History of colonoscopy 2018: Noted a little bleeding/discoloration on the tip of his left tongue. Pt might have bit his tongue under anesthesia. Assured patient and his that we didnt have any issues with his airway and that he wasnt intubated. History of tooth extraction upper teeth Hx of vasectomy S/P TURP (02/2011) Social History Smoking Status: Former smoker tobacco type: cigarettes Smoking cigarettes per day: QUIT WHEN HE WAS IN HIS EARLY 20'S Do You Dip or Chew Tobacco: No Hx Alcohol Use: Yes Alcohol type: wine alcohol intake frequency: holidays/special occasions only Hx Substance Use: No substance use type: does not use Lab Results Anesthesia Preop Results Results Anesthesia Widget: WBC 11.48 K/ul (4.8-10.8) H 09/17/22 Hgb 11.8 g/dl (14.0-18.0) L 09/17/22 Hct 34.2 % (42.0-52.0) L 09/17/22 Plt 172 K/uL (130-400) 09/17/22 Na 137 mmol/L (136-145) 09/17/22 K 4.4 mmol/L (3.5-5.1) 09/17/22 Cl 106 mmol/L (98-107) 09/17/22 CO2 25 mmol/L (21-32) 09/17/22 BUN 32 mg/dl (6-23) H 09/17/22 Creat 1.33 mg/dl (0.6-1.4) 09/17/22 Glucose Level 97 mg/dl (70-99(Fasting)) 09/17/22 PT 45.0 Seconds (9.0-12.0) H 09/17/22 PTT 36.3 Seconds (21.0-31.0) H 09/16/22 INR 4.5 (0.9-1.1) H 09/17/22 Urine Color Yellow 09/17/22 Urine Appearance Cloudy (Clear) A 09/17/22 Urine pH 5.0 (4.5-7.5) 09/17/22 Urine Specific [place] 1.020 (1.000-1.030) 09/17/22 Urine Protein Negative (Negative) 09/17/22 Urine Glucose (UA) Negative (Negative) 09/17/22 Urine Ketones Trace (Negative) H 09/17/22 Urine Blood Negative (Negative) 09/17/22 Urine Nitrite Negative (Negative) 09/17/22 Urine Bilirubin Negative (Negative) 09/17/22 Urine Urobilinogen Negative (Negative) 09/17/22 Urine Leukocyte Esterase Trace (Negative) H 09/17/22 Urine WBC (Auto) 1-5 /hpf (0-5) 09/17/22 Urine RBC (Auto) 5-10 /hpf (0-4) H 09/17/22 Urine Hyaline Casts (Auto) 1-5 /lpf (0-5) 09/17/22 Urine Epithelial Cells (Auto) >30 /lpf (0-5) H 09/17/22 Urine Bacteria (Auto) Negative (Negative) 09/17/22 SARS-CoV-2, RNA, NAAT NEGATIVE (NEGATIVE) 09/16/22 Blood Type A Positive 09/16/22 Antibody Screen NEGATIVE 09/16/22 Testing Electrocardiogram Date: 08/31/22 Poor data quality NSR, rate 75 bpm Chest X-Ray Date: 08/31/22 *1view* No acute cardiopulmonary findings Other Testing Abdomen pelvis CT 09/16/22 1. Large amount well-formed stool seen within the distal sigmoid colon and rectum. There is mild rectal wall thickening with perirectal edema/fat stranding. Findings are concerning for a stercoral proctitis. 2. Additional findings as described above. Neck CTA 08/31/22 1. Severe (80-90%) stenosis of the proximal left internal carotid artery due to predominantly calcified plaque. 2. Severe (80%) stenosis of the proximal right internal carotid artery due to mixed plaque. Head CTA 08/31/22 No central vessel occlusion. No intracranial aneurysm. Brain MRI 08/31/22 1. Small vessel ischemic/degenerative changes. 2. Cerebral and cerebellar atrophy. Head CT 08/31/22 No acute intracranial findings. Carotid doppler 06/22/22 > 70% stenosis L ICA < 50% stenosis R ICA
[~2022-09-21 09:50] MED LIST changes: -ACET-1256 PO; +ACETAMINOPHEN 1000 MG/100 ML IV IV ONE; +ALBUMIN HUMAN 5% 12.5 GM/250 ML VIAL IV ONE; -ASPI-428 PO; -ATOR-24 PO; -CHOL200010 PO; -CYAN100020 PO; +DEXAMETHASONE SOD INJ 4 MG/ML VIAL ONE; -FAMOCHW27 PO; +GLYCOPYRROLATE 0.2 MG/ML VIAL ONE; +HEPARIN SOD (PORCINE) 1000 UNIT/ML ONE; +LACTATED RINGER'S 1,000 ML IV SCH; +LIDOCAINE 2% 2 ML VIAL/AMP(20MG/ML) INFIL ONE; +LR 15ML/HR IV SCH; +MIDAZOLAM HCL 1 MG/ML 2ML VIAL ONE; +ONDANSETRON INJ 2 MG/ML 2 ML VIAL ONE; -POLY335025 PO; +PROPOFOL IV EMULSION 10 MG/ML 20 ML VIAL IV ONE; +ROCURONIUM BROMIDE 10 MG/ML 5 ML VIAL IV ONE; +SUCCINYLCHOLINE CHLORIDE 20 MG/ML 10 ML VIAL IV ONE; -WARF3TAB PO; +ceFAZolin 2000MG 2,000 MG/15 ML SYR IV SCH; +ePHEDrine sulfate 50 MG/ML SYR ONE; +fentaNYL citrate PF 100 MCG/2 ML VIAL ONE
--- NOTE | 2022-09-21 10:37 | History & Physical Report ---
Date of Service September 21, 2022 History of Present Illness Primary Care Provider: Elli Chung DO Chief Complaint rm#6 here for f/u with bilateral blurriness when trying to read. Last 1 hour, was resolved prior to arriving at hospital. Mornings he steel foginess. Subjective I had the pleasure of seeing Sunil today for evaluation of his carotid disease. As you know he is an 87-year-old gentleman who we have seen in the past for mild carotid artery occlusive disease. Earlier this year he developed an episode of not being able to read the paper. He claims he had black lines across the newspaper with blurring of the words. This was not associated with the right or left side. He claims was both eyes. He had no focal weakness or paresthesias during this episode which lasted approximately an hour. It totally resolved and he has had no episodes since. A CT angiogram was obtained which showed an 80 to 90% narrowing of his right internal carotid artery and an 80% narrowing of his left internal carotid artery. He is left hemisphere dominant and right-handed. Objective Vitals & Measurements HR: 72 (Monitored) BP: 106/64 SpO2: 97% Physical Exam On exam he is awake alert and oriented x3. He is in no apparent distress. His blood pressure is 112/62 on the left and 106/64 on the right. His radials are +2 bilaterally as well as a superficial temporal arteries. He does have soft bilateral carotid bruits. His lungs are clear to auscultation. His heart had a regular rate and rhythm with a 2/6 systolic ejection murmur. Abdominal exam is benign with no dilatation of the aorta. Femorals and pedal pulses are all +2 bilaterally. Neurologic exam was intact motor and sensory function. Assessment/Plan Carotid stenosis, bilateral At this point being that he has greater than 80% narrowing in the left carotid and an 80 to 90% narrowing the right carotid we recommended both sides to be treated. Being that his left hemisphere dominant we elected to do the left side first. He is a candidate for TCAR. Surgical endarterectomy would be difficult due to his fusion of his neck bones and inability to move his neck. He understands the risks options benefits of the TCAR procedure and agrees to go ahead with the procedure. We did place him on Plavix which is required for the TCAR and will continue his statin and aspirin which is also required for the TCAR. We will schedule the left side in the next few weeks and plan on doing the right side approximately 4 weeks later. Thank you very much for letting us participate in the care of this patient. Sincerely, Spring Alegria MD Signature Line Electronic Signature on File Renan Alegria MD Author Signature Dt/Tm: 09/12/2022 03:25 PM Stripper Apprentice Shreyas Riggs [facility] [place] [address] [address] [place] [address] EJS Result Type: .Outpt Ltr Date of Service: September 12, 2022 15:20 EDT Authorization Status: Final Subject: Follow Up Visit Author or Import Date: MD Alegria Eugene J on September 12, 2022 15:25 EDT Verified By: MD Alegria Eugene J on September 12, 2022 15:25 EDT Encounter info: [id number], [place] [id number], Clinic, 09/12/2022 - 09/12/2022 Allergies Allergy/AdvReac Type Severity Reaction Status Date / Time No Known Drug Allergies Allergy Unknown Verified 09/21/22 10:18 glycopyrrolate AdvReac Intermediate frequent Verified 09/21/22 10:18 urination, difficulty urinating, dribbling urine Home Medications Medication Instructions Recorded Confirmed Type acetaminophen 500 mg tablet 1,000 mg PO BID PRN Pain 02/09/18 09/19/22 History (Acetaminophen Extra Strength) kbgeblug-pokwapwy-sfsuy acid 400 1 tab PO QAM 07/15/21 09/21/22 History mcg-vit K 20 mcg-lycop 300 mcg tablet (One-A-Day Men's Multivitamin) carbidopa 25 mg-levodopa 100 mg 0.5 tab PO TID #90 tabs 07/06/22 09/21/22 Rx tablet atorvastatin 40 mg tablet 40 mg PO QPM #90 tabs 08/16/22 09/21/22 Rx pantoprazole 40 mg tablet,delayed 40 mg PO QPM 08/31/22 09/21/22 History release aspirin 81 mg chewable tablet 81 mg PO DAILY 30 days #30 tabs 09/02/22 09/21/22 Rx (Children's Aspirin) olmesartan 20 mg tablet 10 mg PO DAILY 30 days #15 tabs 09/16/22 09/21/22 Rx polyethylene glycol 3350 17 gram 34 g PO DAILY 30 days #60 ea 09/17/22 09/21/22 Rx oral powder packet (Miralax) warfarin 2 mg tablet 2 mg PO UD 09/19/22 09/21/22 History ticagrelor 60 mg tablet (Brilinta) 60 mg PO BID 09/21/22 09/21/22 History Past Med/Surg History Medical History Higgins's esophagus Blurred vision BPH (benign prostatic hyperplasia) Carotid artery stenosis 80% stenosis R ICA, 80-90% stenosis L ICA Diaphragmatic hernia Diverticulosis Dysphagia DUE TO PARKINSONS GERD (gastroesophageal reflux disease) Gout History of COVID-19 04/2022- CONGESTION, STEEL, FATIGUE, RESOLVED History of deep vein thrombosis 8 YRS AGO, AFTER INJURY FROM AN ACCIDENT, TREATED WITH COUMADIN 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 Pt might have bit his tongue under anesthesia. Assured patient and his that we didnt have any issues with his airway and that he wasnt intubated. History of tooth extraction upper teeth Hx of vasectomy S/P TURP (02/2011) Family History Other No family history of bleeding disorder Denies family history of Ovarian cancer Prostate cancer Myocardial infarction Breast cancer Colorectal cancer Social History Smoking Status: Former smoker Cigarettes Per Day: QUIT WHEN HE WAS IN HIS EARLY 20'S; Second Hand Exposure: No; Do You Dip or Chew Tobacco: No; Tobacco Cessation Education Requested by Patient: No Hx Alcohol Use: Yes Alcohol type: wine Alcohol Intake Frequency: Monthly or Less Hx Substance Use: No Preferred Language: South African Communication Ability: Effective Visual Impairment: Limited Hearing Ability: Use of Hearing Aid Culinary Worker Required: No Beliefs That Will Affect Care: None marital status: Current Living Situation: Spouse current occupational status: retired How many Children do You have: 1 Other Information That Helps Us Care for You: No Feels Safe at Home: Yes Safety Concerns: Feels Safe At This Time Childhood Exposure to Second-Hand Smoke: Yes (father smoked ) Diet: regular Diet Comment: regular caffeine: Yes during the past year weight has: remained stable Dental Care, Regularly: Yes Physical Activity Frequency: Daily Seatbelt Use: always Sunscreen Use: No Assistive Devices: Denture - Upper, Glasses and Hearing Aid - Bilateral
[2022-09-21] MEDS ORDERED: ONDANSETRON INJ 2 MG/ML 2 ML VIAL IV PRN (11:36)
[2022-09-21] MEDS ORDERED: ATROPINE SULFATE 0.1 MG/ML 10ML SYR IV PRN (11:36)
[2022-09-21] MEDS ORDERED: fentaNYL citrate PF 100 MCG/2 ML VIAL IV PRN (11:36)
[2022-09-21] MEDS ORDERED: ePHEDrine sulfate 50 MG/ML AMP IV PRN (11:36)
[2022-09-21 11:37] LABS: INR 1.3 (0.9-1.1); Partial Thromboplastin Time 28.3 Seconds (21.0-31.0); Prothrombin Time 14.4 Seconds (9.0-12.0)
[2022-09-21] MEDS ORDERED: BUPIVACAINE/EPINEPHRINE 0.5% MPF 1:200,000 30 ML VIAL ONE (12:16)
[2022-09-21] MEDS ORDERED: GELATIN SPONGE SZ 100 ONE (12:17)
[2022-09-21] MEDS ORDERED: ceFAZolin 330 MG/ML 1 GM VIAL ONE (12:17)
[2022-09-21] MEDS ORDERED: THROMBIN FOR SOLN 20000 UNIT KIT ONE (12:17)
[2022-09-21] MEDS ORDERED: GLYCOPYRROLATE 0.2 MG/ML VIAL ONE (12:35)
[2022-09-21] MEDS ORDERED: VISIPAQUE IV PRN (13:40)
[2022-09-21] MEDS ORDERED: SURGICEL ABSORB HEMOSTAT 2IN X 14IN TOP ONE (13:54)
[2022-09-21] MEDS ORDERED: PROTAMINE SULFATE 10 MG/ML 5 ML VIAL IV ONE (14:00)
[2022-09-21] MEDS ORDERED: SUGAMMADEX SODIUM 200 MG/2 ML VIAL IV ONE (14:06)
[2022-09-21] MEDS ORDERED: ARISTA ABSORBABLE HEMOSTAT 3GM TOP ONE (14:07)
--- NOTE | 2022-09-21 14:15 | Procedure Note ---
Angiogram Post Procedure Fluoroscopy Time (minutes): 1.7 Radiation (mGy): 46 Contrast: 17 Post Operative Report Pre & Post Diagnosis Operation Date: 09/21/22 12:00 Pre-Op Diagnosis: Severe Bilateral Carotid Artery Stenosis Post-Op Diagnosis: Severe Bilateral Carotid Artery Stenosis I identified the patient and participated in the time-out.: Yes Procedure Operation Date: 09/21/22 12:00 Actual Procedures p Left Transcarotid Artery Revascularization, ulstrasound location femoral vein(Left) - Renan Alegria MD Surgeon Renan Alegria MD Assistant Professor Surgical Technology Nidia,PAC Estimated Blood Loss 10 Findings Consistent with Post-Op Diagnosis Specimens none Anesthesia Type General Complications none Disposition Accompanied Patient To Recovery: No Disposition: Recovery Room Indications Patient is a 7-year-old gentleman who is seen for blurriness of vision. He was found to have severe stenosis of both internal carotid arteries. He is left hemisphere dominant through a intervention was recommended for left carotid first. He understood the risks options and benefits of TCAR versus endarterectomy elected to go ahead with the TCAR. I have discussed the risks options and benefits of the procedure with the patient. The patient understands the risks options and benefits and agrees to the procedure. Description of Procedure The patient was taken to the operating room and placed in supine position. After general anesthesia was accomplished the groins and left side of the neck and chest were prepped and draped in a sterile manner. Timeout was performed and the patient was identified. A transverse incision was made just above the clavicle between the heads of the sternocleidomastoid. This was carried down to where the common carotid artery was identified. It was isolated and slung with an umbilical tape. A U stitch of 5-0 Prolene was placed on the anterior surface of the common carotid artery. The patient was given 8000units of heparin at that time. Ultrasound was then used to localize the right common femoral vein. The vein was patent and compressed easily. Under ultrasound guidance the right common femoral vein was punctured and the venous sheath was inserted. This was aspirated and flushed with heparinized saline. An ACT at that time was 305. Using micropuncture technique the common carotid artery was punctured. The micro sheath was inserted to 3 cm. Injection was then done showing the bifurcation. There was a significant lesion seen at the origin of the internal carotid artery on the left side. We reinserted the micro wire and passed it into the external carotid. We then advanced the dilator and sheath into the external carotid. The dilater and sheath were removed. We then inserted the J- wire into the external carotid artery. The TCAR sheath was inserted. This was done using the tunnel technique. Once it was in place and held against the artery it was sutured to the chest wall and the incision edge. We then flushed the tubing appropriately. The venous return tubing was clamped onto the TCAR sheath. It was flushed through and then attached to the venous inflow sheath in the right groin. The sheath was checked for flow. We then inserted a 5 x 25 balloon backloaded on the wire. The wire was passed through the lesion into the petrous portion of the internal carotid. The 5 balloon was then advanced to the lesion. The lesion was then predilated with the 5mm balloon. The balloon was removed. We then inserted the 9 x 30 stent. This was deployed across the lesion without difficulty. The catheter was removed. The carotid was allowed to go 2 minutes with flow reversal. Completion angiogram was done at that time which showed no residual stenosis.The wire was removed we allowed 2 minutes of flow reversal to occur. A that point the common carotid artery was unclamped. The venous return tubing was clamped and removed from the TCAR sheath. The blood was allowed to flow back into the venous system. Once this was completed the sheath was pulled from the groin and pressure was applied. The TCAR sheath was then removed and the 5-0 Prolene suture securely tied. Hemostasis was noted of the puncture site. Wound was irrigated with Ancef solution. Adequate hemostasis was obtained of the wound. Once this was noted the wound was closed in usual fashion using a 3-0 Vicryl suture for the subcutaneous layer and a 4-0 subcuticular Vicryl suture for the skin edges. Dermabond was used for dressing.The patient left the operation room in satisfactory condition and tolerated the procedure well. All needle and sponge counts were correct at the end of the procedure. Luzmaria Martin Pac assisted due to lack of resident availability and was necessary for positioning, draping, retraction, wound closure deep layers, subcutaneous tissue, and skin closure and was necessary for assisting with the case. I attest to the content of the Intraoperative Record and any orders documented therein. Any exceptions are noted below.
[2022-09-21] MEDS ORDERED: fentaNYL citrate PF 100 MCG/2 ML VIAL ONE (14:17)
--- NOTE | 2022-09-21 14:33 | Critical Care Consultation ---
Date of Consultation September 21, 2022 Assessment & Plan (1) Carotid artery stenosis: Monitor in the ICU for frequent neurovascular checks, maintaining hemodynamic stability and monitoring for airway difficulties. TCAR protocol calls for maintaining systolic blood pressure 20% above baseline. His baseline systolic blood pressure was 158 on arrival today. He is currently on low-dose phenylephrine. Pain control per vascular surgery. ICU team will continue patient while the patient remains under ICU status. I requested that IV team come by and evaluate the patient for an ultrasound- guided IV given the requirement for IV phenylephrine. Monitor urine output closely. Thank you for allowing us to participate in the care of this patient. Discussed with postop recovery nurse. CRITICAL CARE TIME - I have personally spent 38 minutes of critical care time in the direct management of this patient. This is a life/limb threatening event. This includes time spent evaluating patient, direct bedside care, chart review, placing orders, interpretation of diagnostic studies, discussion with consultants, patient, and family members, as well as other required patient management activities. This time is exclusive of all separately billable procedures, and teaching time and separate from and in addition to any other critical care service time. (2) Arterial hypotension: History of Present Illness Reason for Consultation: Postop monitoring Attending Physician: Renan Alegria MD History of Present Illness 87-year-old male with a history of bilateral carotid artery stenosis retropharyngeal reflux disorder, Parkinson's disease and BPH presented today electively for carotid artery revascularization. He has some mild incisional pain and posterior neck pain which is chronic. Otherwise denies any acute complaints. No shortness of breath or chest pain. No fevers, chills or night sweats. He notes chronic diarrhea related to MiraLAX. He has chronic mild anemia with his last hemoglobin of 11.8 09/17/2022. He was discharged from the hospital 09/17/2022 due to colitis. He currently has a 20-gauge IV in his right forearm and an 18-gauge IV in his left antecubital fossa. Phenylephrine is infusing through a 20-gauge IV in the right forearm. Allergies Allergy/AdvReac Type Severity Reaction Status Date / Time No Known Drug Allergies Allergy Unknown Verified 09/21/22 10:18 glycopyrrolate AdvReac Intermediate frequent Verified 09/21/22 10:18 urination, difficulty urinating, dribbling urine Home Medications Medication Instructions Recorded Confirmed Type acetaminophen 500 mg tablet 1,000 mg PO BID PRN Pain 02/09/18 09/19/22 History (Acetaminophen Extra Strength) gotfghxh-blufjmhf-mxkvf acid 400 1 tab PO QAM 07/15/21 09/21/22 History mcg-vit K 20 mcg-lycop 300 mcg tablet (One-A-Day Men's Multivitamin) carbidopa 25 mg-levodopa 100 mg 0.5 tab PO TID #90 tabs 07/06/22 09/21/22 Rx tablet atorvastatin 40 mg tablet 40 mg PO QPM #90 tabs 08/16/22 09/21/22 Rx pantoprazole 40 mg tablet,delayed 40 mg PO QPM 08/31/22 09/21/22 History release aspirin 81 mg chewable tablet 81 mg PO DAILY 30 days #30 tabs 09/02/22 09/21/22 Rx (Children's Aspirin) olmesartan 20 mg tablet 10 mg PO DAILY 30 days #15 tabs 09/16/22 09/21/22 Rx polyethylene glycol 3350 17 gram 34 g PO DAILY 30 days #60 ea 09/17/22 09/21/22 Rx oral powder packet (Miralax) warfarin 2 mg tablet 2 mg PO UD 09/19/22 09/21/22 History ticagrelor 60 mg tablet (Brilinta) 60 mg PO BID 09/21/22 09/21/22 History Patient History Medical History (Updated 09/21/22 @ 15:19 by Naveed Potter MD) Arterial hypotension Higgins's esophagus Blurred vision BPH (benign prostatic hyperplasia) Carotid artery stenosis 80% stenosis R ICA, 80-90% stenosis L ICA Diaphragmatic hernia Diverticulosis Dysphagia DUE TO PARKINSONS GERD (gastroesophageal reflux disease) Gout History of COVID-19 04/2022- CONGESTION, STEEL, FATIGUE, RESOLVED History of deep vein thrombosis 8 YRS AGO, AFTER INJURY FROM AN ACCIDENT, TREATED WITH COUMADIN 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 Pt might have bit his tongue under anesthesia. Assured patient and his that we didnt have any issues with his airway and that he wasnt intubated. History of tooth extraction upper teeth Hx of vasectomy S/P TURP (02/2011) Family History Other No family history of bleeding disorder Denies family history of Ovarian cancer Prostate cancer Myocardial infarction Breast cancer Colorectal cancer Social History Smoking Status: Former smoker Cigarettes Per Day: QUIT WHEN HE WAS IN HIS EARLY 20'S; Second Hand Exposure: No; Do You Dip or Chew Tobacco: No; Tobacco Cessation Education Requested by Patient: No Hx Alcohol Use: Yes Alcohol type: wine Alcohol Intake Frequency: Monthly or Less Hx Substance Use: No Preferred Language: Yakut Communication Ability: Effective Visual Impairment: Limited Hearing Ability: Use of Hearing Aid Instrument Repair Technician Required: No Beliefs That Will Affect Care: None marital status: Current Living Situation: Spouse current occupational status: retired How many Children do You have: 1 Other Information That Helps Us Care for You: No Feels Safe at Home: Yes Safety Concerns: Feels Safe At This Time Childhood Exposure to Second-Hand Smoke: Yes (father smoked ) Diet: regular Diet Comment: regular caffeine: Yes during the past year weight has: remained stable Dental Care, Regularly: Yes Physical Activity Frequency: Daily Seatbelt Use: always Sunscreen Use: No Assistive Devices: Denture - Upper, Glasses and Hearing Aid - Bilateral Review of Systems Review of Systems: All systems reviewed & are unremarkable except as noted in HPI & below Physical Exam Eyes: PERRL, conjunctivae normal, anicteric sclerae ENMT: external ear and nose normal, oropharynx normal Neck: Limited range of motion of the neck. Periclavicular incision noted. Clean and dry. Intact. Respiratory: normal respiratory effort, lungs clear to auscultation Gastrointestinal (Abdomen): normal bowel sounds, soft, nontender, no hepatosplenomegaly Neurologic: PERRL, EOMI, accommodation nl, no face palsy, no dysarthria Psychiatric: A+Ox3, euthymic affect Coding Level of Care Code 18951 Prolonged Care (int'l) Diagnoses Carotid artery stenosis I65.29 Arterial hypotension I95.9 Time Spent (min) 38
--- NOTE | 2022-09-21 16:15 | Anesthesiology Progress Note ---
Date of Service September 21, 2022 Anesthesia Post Procedure Vital Signs Vital Signs: Temp Pulse Resp BP BP Pulse Ox O2 Del Method 09/21/22 15:35 75 13 131/56 L 104/57 L 95 Room Air 09/21/22 15:25 36.4 C L 71 12 120/53 L 124/69 95 Room Air 09/21/22 15:15 75 12 117/50 L 129/65 94 Room Air 09/21/22 15:05 75 12 112/51 L 130/71 99 Oxymask 09/21/22 14:55 78 12 119/54 L 136/66 99 Oxymask 09/21/22 14:45 82 13 137/57 L 139/82 99 Oxymask 09/21/22 14:39 36.0 C L 82 10 L 135/59 L 137/77 100 Oxymask O2 Flow Rate 09/21/22 15:35 09/21/22 15:25 09/21/22 15:15 09/21/22 15:05 5 09/21/22 14:55 8 09/21/22 14:45 8 09/21/22 14:39 8 Pain Intensity Posterior Neck: Pain Intensity: 4 Transfer of Care Handoff Completed per policy Notes Mental Status: alert / awake / arousable and participated in evaluation Patient Amnestic to Procedure: Yes Nausea / Vomiting: adequately controlled Pain: adequately controlled Airway Patency, RR, SpO2: stable & adequate BP & HR: stable & adequate Hydration State: stable & adequate Anesthetic Complications: no major complications apparent and Pt Satisfied with anesthetic care
[2022-09-21] MEDS: LACTATED RINGER'S 1,000 ML IV SCH (16:32)
[2022-09-21] MEDS: WARFARIN SOD 2 MG TAB PO SCH (17:34)
[2022-09-21] MEDS: CARBIDOPA/LEVODOPA 25/100MG TAB PO SCH (20:33)
[2022-09-21] MEDS: ATORVASTATIN 40 MG TAB PO SCH (20:34)
[2022-09-21] MEDS: PANTOprazole 40 MG TAB PO SCH (20:35)
[2022-09-21] MEDS: TICAGRELOR 90 MG TAB PO SCH (20:36)
[2022-09-21] MEDS: ceFAZolin 2000MG 2,000 MG/15 ML SYR IV SCH (20:36)
[2022-09-21] MEDS: ACETAMINOPHEN 500 MG TAB PO PRN (20:59)
[2022-09-21] MEDS ORDERED: LIDOCAINE 2% JELLY 5 ML TUBE EXT ONE (22:12)
[2022-09-21] MEDS: oxyCODONE/ACETAMINOPHEN 5mg/325mg TAB PO PRN (22:59)
[2022-09-21] MEDS: PHENYLEPHRINE/NSS 25 MG/250 ML BAG IV PRN (23:55)
[2022-09-22] MEDS: LACTATED RINGER'S 1,000 ML IV SCH (00:35)
--- NOTE | 2022-09-22 04:46 | Communication Note ---
Date of Service: September 22, 2022 0426- Called to bedside by nursing staff for concerns of neurological changes. Reports that when attempting to get patient out of bed to the toilet- patient reported he was feeling dizzy prior to getting up and then had some word finding difficulty and had difficulty moving his RIGHT leg. Patient presented with similar symptoms/complaints with his previous admission in September 01 for stroke like symptoms. At that 09/01 time he was noted with vision changes/blurry vision in both eyes, weakness of his legs and drooling- imaging was not consistent with CVA at that time and was thought to be more PRESS related. On evaluation patient with BP in the 140-150 range systolic with norsynephrine for hypotension earlier, and HR 40s. He has normal vision, PEERLA, ROM of eyes in all cardinal duarte- peripheral vision with no change from previous examination. He has no facial droop, and tongue is midline, slurred speech is present but mild, full ROM and strength to all extremities 5/5 bilaterally. He hs no aphasia and is without neglect and is without ataxia on heel to mcknight or any overshoot with finger to nose ( he has a baseline right hand tremor with his Parkinson). Will obtain CT of the head, CTA of the head and neck. Patient would not be TNKAse candidate secondary to vascular TCAR surgery on 09/21/22. Primary Vascular Surgery team updated by Nurse during my examination. Imaging as above is pending. NIHSS- 2 for difficulty with peripheral vision testing and mild dysarthria (baseline). NIHSS - 1 upon return from imaging - for mild dysarthria (baseline) I Discussed history and current exam with Dr. Alegria at 0500 no new acute focal deficits. Await imaging as above. A/P DDX: Pre-syncope prior to getting up vs. CVA vs. TIA vs. Other- await imaging results Continue BP support < 160 following TCAR - baseline prior to surgery was 120-140 SBP Continue ASA, Brilinta, Warfarin - unless hemorrhage noted on CT Lipid Panel this morning- patient does not appear to be on statin at baseline PT/OT Patient back to his baseline and is with essentially normal neurological exam for his baseline at this time Plan to change if hemorrhage noted on imaging. Zeyad SAUCEDO ([facility]) [id number]- 20 minutes Critical Care time
[2022-09-22] MEDS ORDERED: OPTIRAY 320 500ml IV ONE (05:10)
[2022-09-22] MEDS: oxyCODONE/ACETAMINOPHEN 5mg/325mg TAB PO PRN (05:29)
[2022-09-22] MEDS: ceFAZolin 2000MG 2,000 MG/15 ML SYR IV SCH (05:30)
--- NOTE | 2022-09-22 05:35 | CT Scan Report ---
Exam(s): CT HEAD Without Contrast EXAM: CT Head Without Intravenous Contrast CLINICAL HISTORY: Reason for exam: neurological changes. TECHNIQUE: Axial computed tomography images of the head/brain without intravenous contrast. Automated exposure control was utilized for the study. A dose lowering technique was utilized adhering to the principles of ALARA. COMPARISON: CT head performed 08/31/22, MRI brain performed 07/04/22 FINDINGS: There is no acute intracranial hemorrhage or major vascular territory infarct. No mass effect or midline shift seen. There is prominence of the ventricles and sulci consistent with generalized parenchymal volume loss. Scattered hypodensities throughout the periventricular and subcortical white matter are noted, likely sequela of chronic microvascular changes. The calvarium is intact. Bilateral lens replacements noted. The visualized paranasal sinuses and mastoid air cells are clear. IMPRESSION: No acute intracranial pathology. Generalized parenchymal volume loss and sequela of chronic microvascular ischemic angiopathy. Electronically signed by: Kam Aguilar M.D. 09/22/22 05:34 AM
--- NOTE | 2022-09-22 05:44 | CT Scan Report ---
Exam(s): CTA HEAD With Contrast IV Amt: 112 ml optiray 320 EXAM: CT Angiography Head With Intravenous Contrast CLINICAL HISTORY: Reason for exam: neurological changes. TECHNIQUE: Axial computed tomographic angiography images of the head with intravenous contrast. Automated exposure control was utilized for the study. A dose lowering technique was utilized adhering to the principles of ALARA. MIP reconstructed images were created and reviewed. CONTRAST: Patient received 112 ml optiray 320 of IV contrast COMPARISON: Concurrent CT head FINDINGS: Right internal carotid artery: Mild atherosclerosis in the carotid siphon. Intracranial segment is patent with no significant stenosis. No aneurysm. Right anterior cerebral artery: No occlusion or significant stenosis. No aneurysm. Right middle cerebral artery: No occlusion or significant stenosis. No aneurysm. Right posterior cerebral artery: No occlusion or significant stenosis. No aneurysm. Right vertebral artery: Unremarkable as visualized. Left internal carotid artery: Mild atherosclerosis in the carotid siphon. Intracranial segment is patent with no significant stenosis. No aneurysm. Left anterior cerebral artery: No occlusion or significant stenosis. No aneurysm. Left middle cerebral artery: No occlusion or significant stenosis. No aneurysm. Left posterior cerebral artery: No occlusion or significant stenosis. No aneurysm. Left vertebral artery: Unremarkable as visualized. Basilar artery: No occlusion or significant stenosis. No aneurysm. IMPRESSION: No large vessel occlusion, significant stenosis, aneurysm or vascular malformation. Electronically signed by: Kam Aguilar M.D. 09/22/22 05:43 AM
[2022-09-22 05:52] LABS: Basophils # (auto) 0.01 K/uL (0-0.2); Basophils % (auto) 0.1 %; Hematocrit (blood only) 27.6 % (42.0-52.0); Hemoglobin 9.4 g/dl (14.0-18.0); Immature Granulocytes # (auto) 0.02 K/uL (0.01-0.20); Immature Granulocytes % (auto) 0.2 %; Lymphocytes # (auto) 1.43 K/uL (1.2-3.4); Lymphocytes % (auto) 15.4 %; Mean Corpuscular Hgb Conc 34.1 g/dL (32.0-36.0); Mean Corpuscular Volume 93.9 fL (80.0-100.0); Mean Platelet Volume 9.3 fL (9.4-12.4); Monocytes # (auto) 0.82 K/uL (0.11-0.59); Monocytes % (auto) 8.9 %; Neutrophils # (auto) 6.98 K/uL (1.40-6.50); Neutrophils % (auto) 75.4 %; Platelet Count 176 K/uL (130-400); RDW Coefficient of Variation 12.6 % (11.5-14.5); RDW Standard Deviation 43.3 fL (36.4-46.3); Red Blood Count 2.94 M/uL (4.70-6.10); White Blood Count 9.26 K/ul (4.8-10.8)
[2022-09-22 05:54] LABS: BUN Creatinine Ratio 19.5 (10-20); Calcium 8.9 mg/dl (8.6-10.3); Est GFR (African American) 57.9 ml/min; Magnesium 1.6 mg/dl (1.7-2.4); Potassium 4.2 mmol/L (3.5-5.1)
[2022-09-22 06:11] LABS: INR 1.3 (0.9-1.1); Prothrombin Time 14.5 Seconds (9.0-12.0)
--- NOTE | 2022-09-22 06:23 | CT Scan Report ---
Exam(s): CTA NECK With Contrast IV Amt: 112 ml optiray 320 EXAM: CT Angiography Neck With Intravenous Contrast CLINICAL HISTORY: Reason for exam: neurological change. TECHNIQUE: Routine carotid CT angiography protocol was performed with intravenous contrast. NASCET criteria using the distal ICAs for comparison were used for evaluation of stenoses. Automated exposure control was utilized for the study. A dose lowering technique was utilized adhering to the principles of ALARA. MIP reconstructed images were created and reviewed. CONTRAST: Patient received 112 ml optiray 320 of IV contrast COMPARISON: CTA neck performed 08/31/22 FINDINGS: VASCULATURE: Right common carotid artery: No occlusion or significant stenosis. No dissection. Right internal carotid artery: Calcified and noncalcified atherosclerotic plaque in the proximal right ICA with approximately 83% stenosis stable. No dissection. Right external carotid artery: No occlusion. Right vertebral artery: No occlusion or significant stenosis. No dissection. Left common carotid artery: Postoperative change from carotid endarterectomy of the left common and internal carotid artery. Left internal carotid artery: See above Left external carotid artery: No occlusion. Left vertebral artery: No occlusion or significant stenosis. No dissection. NECK: Bones/joints: Prominent multilevel cervical spondylosis. Soft tissues: Prominent soft tissue gas and fluid throughout the soft tissues of the left neck and sternocleidomastoid, likely postoperative in etiology. Lung apices: Clear. CAROTID STENOSIS REFERENCE USING NASCET CRITERIA: % ICA stenosis = (1 - narrowest ICA diameter/diameter of distal cervical ICA) x 100. Mild - <50% stenosis. Moderate - 50-69% stenosis. Severe - 70-94% stenosis. Near occlusion - 95-99% stenosis. Occluded - 100% stenosis. IMPRESSION: Postoperative change from carotid endarterectomy of the left common and internal carotid artery. Prominent soft tissue gas and fluid throughout the soft tissues of the left neck and sternocleidomastoid, likely postoperative in etiology. Calcified and noncalcified atherosclerotic plaque in the proximal right ICA with approximately 83% stenosis stable. Electronically signed by: Kam Aguilar M.D. 09/22/22 06:22 AM
[2022-09-22] MEDS: ASPIRIN 81 MG CHEW PO SCH (07:51)
[2022-09-22] MEDS: CARBIDOPA/LEVODOPA 25/100MG TAB PO SCH ×3 (07:53→20:16)
[2022-09-22] MEDS: MULTIVITAMIN TAB PO SCH (07:54)
[2022-09-22] MEDS: TICAGRELOR 90 MG TAB PO SCH ×2 (07:55→20:20)
[2022-09-22] MEDS: POLYETHYLENE (MIRALAX) 17 GM PACK PO SCH (07:55)
[2022-09-22] MEDS ORDERED: PSEUDOEPHEDRINE HCL 30 MG TAB PO PRN (08:34)
--- NOTE | 2022-09-22 08:39 | Surgery Progress Note ---
Date of Service September 22, 2022 Assessment & Plan (1) Internal carotid artery stent present: Plan: This gentleman is postoperative day 1 from a TCAR. He is doing well with no new neurological deficits. (2) Arterial hypotension: Plan: He has developed postoperative hypotension requiring a Delmar-Synephrine drip.We will start him on p.o. Sudafed Admission and Anticipated Discharge Date Admission Date: September 21, 2022 Subjective Patient with no complaints this morning.He is complaining of neck pain which she has had prior to surgery. Physical Exam Constitutional: WD/WN, vitals as above Neck: trachea midline Respiratory: normal respiratory effort; no respiratory distress Cardiovascular: Rate/Rhythm: regular rate and regular rhythm Musculoskeletal: no cyanosis or clubbing, extremities motor strength 5/5 Skin: + incision (Dry and clean with mild ecchymosis) Neurologic: CN's II-XI intact bilaterally and moves all extremities; no focal motor deficits Psychiatric: Orientation: alert and oriented x 3 Results & Data Vital Signs (Past 12 Hours) Vital Signs Pulse Resp BP Pulse Ox 09/22/22 06:50 46 L 12 111/53 L 95 09/22/22 06:43 59 L 10 L 65/37 L 94 09/22/22 06:40 61 16 96 09/22/22 06:32 46 L 15 95 09/22/22 06:30 45 L 12 155/56 H 95 09/22/22 06:00 55 L 12 92/43 L 78 L 09/22/22 05:40 61 13 142/63 H 96 09/22/22 05:30 63 14 88/50 L 09/22/22 05:17 63 12 135/57 L 09/22/22 05:13 62 13 127/61 94 09/22/22 05:05 66 14 94 09/22/22 04:30 64 19 96 09/22/22 04:00 46 L 14 150/56 H 09/22/22 03:45 45 L 13 154/54 H 94 09/22/22 03:30 46 L 14 153/56 H 94 09/22/22 03:15 46 L 13 93 09/22/22 03:00 47 L 13 157/57 H 93 09/22/22 02:45 48 L 15 149/54 H 94 09/22/22 02:30 46 L 13 161/55 H 93 09/22/22 02:15 46 L 14 131/48 L 93 09/22/22 02:00 48 L 13 125/49 L 93 09/22/22 01:45 50 L 16 156/54 H 92 09/22/22 01:30 45 L 15 134/44 L 93 09/22/22 01:15 47 L 15 138/50 L 94 09/22/22 01:00 47 L 16 133/51 L 93 09/22/22 00:45 48 L 15 139/52 L 09/22/22 00:30 49 L 16 144/51 H 09/22/22 00:15 57 L 16 134/52 L 91 09/22/22 00:00 51 L 15 94 09/21/22 23:59 51 L 16 140/68 94 09/21/22 23:45 48 L 14 106/42 L 93 09/21/22 23:30 54 L 16 94 09/21/22 23:27 55 L 15 100/41 L 95 09/21/22 23:17 59 L 12 90/39 L 94 09/21/22 23:17 90/39 L 09/21/22 23:00 61 17 94 09/21/22 22:55 68 13 102/47 L 94 09/21/22 22:30 70 17 94 09/21/22 22:00 70 13 127/59 L 94 09/21/22 21:30 67 13 95 09/21/22 21:00 68 14 93 09/21/22 20:57 69 14 105/51 L 96 09/21/22 20:50 67 15 92/52 L 94 09/22/22 00:00 54 L
--- NOTE | 2022-09-22 08:50 | Critical Care Progress Note ---
Date of Service September 22, 2022 Assessment & Plan (1) Carotid artery stenosis: Plan: He is status post left TCAR 09/21/2022 Monitor in the ICU for frequent neurovascular checks, maintaining hemodynamic stability and monitoring for airway difficulties. Maintain systolic blood pressures in the 140s per Dr. Alegria. He we will start the patient on oral pseudoephedrine. Continue antiplatelet therapy and anticoagulant per Dr. Alegria. Troponin to follow overnight did not reveal any evidence of new findings on imaging. Per Dr. Alegria, his confusion appears to be at baseline. Hypotension may also be playing a role. CRITICAL CARE TIME - I have personally spent 33 minutes of critical care time in the direct management of this patient. This is a life/limb threatening event. This includes time spent evaluating patient, direct bedside care, chart review, placing orders, interpretation of diagnostic studies, discussion with consultants, patient, and family members, as well as other required patient management activities. This time is exclusive of all separately billable procedures, and teaching time and separate from and in addition to any other critical care service time. (2) Arterial hypotension: (3) Confusion: Admission and Anticipated Discharge Date Admission Date: September 21, 2022 Subjective Yesterday evening the patient had a presyncopal event at a CT of his head, and CTA and neck CTA ordered. No acute changes are noted. This morning patient is doing well. His smile is symmetrical. He has no focal deficits. He does complain of some mild neck pain. He remains on the left front via an ultrasound-guided IV. He is alert and aware of the location that he is currently in. He does make some odd statements occasionally seems disoriented. I discussed his presentation with Dr. Alegria at bedside. Dr. 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 Review of Systems Review of Systems: All systems reviewed & are unremarkable except as noted in HPI & below Physical Exam Eyes: PERRL, conjunctivae normal, anicteric sclerae ENMT: external ear and nose normal, oropharynx normal Neck: Limited range of motion of the neck. Periclavicular incision noted. Clean and dry. Intact. Respiratory: normal respiratory effort, lungs clear to auscultation Gastrointestinal (Abdomen): normal bowel sounds, soft, nontender, no hepatosplenomegaly Neurologic: PERRL, EOMI, accommodation nl, no face palsy, no dysarthria Psychiatric: A+Ox3, euthymic affect Results & Data Results & Data Vital Signs (Past 12 Hours) Vital Signs Pulse Resp BP Pulse Ox 09/22/22 06:50 46 L 12 111/53 L 95 09/22/22 06:43 59 L 10 L 65/37 L 94 09/22/22 06:40 61 16 96 09/22/22 06:32 46 L 15 95 09/22/22 06:30 45 L 12 155/56 H 95 09/22/22 06:00 55 L 12 92/43 L 78 L 09/22/22 05:40 61 13 142/63 H 96 09/22/22 05:30 63 14 88/50 L 09/22/22 05:17 63 12 135/57 L 09/22/22 05:13 62 13 127/61 94 09/22/22 05:05 66 14 94 09/22/22 04:30 64 19 96 09/22/22 04:00 46 L 14 150/56 H 09/22/22 03:45 45 L 13 154/54 H 94 09/22/22 03:30 46 L 14 153/56 H 94 09/22/22 03:15 46 L 13 93 09/22/22 03:00 47 L 13 157/57 H 93 09/22/22 02:45 48 L 15 149/54 H 94 09/22/22 02:30 46 L 13 161/55 H 93 09/22/22 02:15 46 L 14 131/48 L 93 09/22/22 02:00 48 L 13 125/49 L 93 09/22/22 01:45 50 L 16 156/54 H 92 09/22/22 01:30 45 L 15 134/44 L 93 09/22/22 01:15 47 L 15 138/50 L 94 09/22/22 01:00 47 L 16 133/51 L 93 09/22/22 00:45 48 L 15 139/52 L 09/22/22 00:30 49 L 16 144/51 H 09/22/22 00:15 57 L 16 134/52 L 91 09/22/22 00:00 51 L 15 94 09/21/22 23:59 51 L 16 140/68 94 09/21/22 23:45 48 L 14 106/42 L 93 09/21/22 23:30 54 L 16 94 09/21/22 23:27 55 L 15 100/41 L 95 09/21/22 23:17 59 L 12 90/39 L 94 09/21/22 23:17 90/39 L 09/21/22 23:00 61 17 94 09/21/22 22:55 68 13 102/47 L 94 09/21/22 22:30 70 17 94 09/21/22 22:00 70 13 127/59 L 94 09/21/22 21:30 67 13 95 09/21/22 21:00 68 14 93 09/21/22 20:57 69 14 105/51 L 96 09/21/22 20:50 67 15 92/52 L 94 09/22/22 00:00 54 L Coding Level of Care Code 12988 CRITICAL CARE 1ST 30-74M Diagnoses Carotid artery stenosis I65.29 Arterial hypotension I95.9 Confusion R41.0 Time Spent (min) 33
[2022-09-22] MEDS: LOSARTAN POTASSIUM 50 MG TAB PO SCH (10:57)
[2022-09-22] MEDS: MAGNESIUM SULFATE / D5W 1 GM/100 ML BAG IV SCH ×2 (10:57→12:11)
[2022-09-22] MEDS: ACETAMINOPHEN 500 MG TAB PO PRN (12:39)
[2022-09-22] MEDS ORDERED: WARFARIN SOD 4 MG TAB PO SCH (16:00)
[2022-09-22] MEDS: PHENYLEPHRINE/NSS 25 MG/250 ML BAG IV PRN (16:51)
[2022-09-22] MEDS: ICU ELECTROLYTE REPLACEMENT PROTOCOL SCH (19:06)
[2022-09-22] MEDS: ATORVASTATIN 40 MG TAB PO SCH (20:16)
[2022-09-22] MEDS: PANTOprazole 40 MG TAB PO SCH (20:19)
[2022-09-23 05:30] LABS: Basophils # (auto) 0.04 K/uL (0-0.2); Basophils % (auto) 0.4 %; Eosinophils # (auto) 0.13 K/uL (0-0.50); Eosinophils % (auto) 1.3 %; Hematocrit (blood only) 27.8 % (42.0-52.0); Hemoglobin 9.8 g/dl (14.0-18.0); Immature Granulocytes # (auto) 0.02 K/uL (0.01-0.20); Immature Granulocytes % (auto) 0.2 %; Lymphocytes # (auto) 1.38 K/uL (1.2-3.4); Lymphocytes % (auto) 13.9 %; Mean Corpuscular Hgb Conc 35.3 g/dL (32.0-36.0); Mean Corpuscular Volume 93.6 fL (80.0-100.0); Mean Platelet Volume 9.5 fL (9.4-12.4); Monocytes # (auto) 1.24 K/uL (0.11-0.59); Monocytes % (auto) 12.5 %; Neutrophils # (auto) 7.11 K/uL (1.40-6.50); Neutrophils % (auto) 71.7 %; Platelet Count 196 K/uL (130-400); RDW Coefficient of Variation 12.6 % (11.5-14.5); RDW Standard Deviation 43.3 fL (36.4-46.3); Red Blood Count 2.97 M/uL (4.70-6.10); White Blood Count 9.92 K/ul (4.8-10.8)
[2022-09-23 05:32] LABS: BUN Creatinine Ratio 13.8 (10-20); Calcium 9.6 mg/dl (8.6-10.3); Creatinine Clr Calc Pharmacy 25.7 ml/min; Est GFR (African American) 36.2 ml/min; Est GFR (Non-African American) 31.2 ml/min; Magnesium 2.2 mg/dl (1.7-2.4); Phosphorus 3.6 mg/dl (2.5-4.9)
[2022-09-23 05:41] LABS: INR 1.8 (0.9-1.1); Prothrombin Time 18.6 Seconds (9.0-12.0)
[2022-09-23] MEDS: ICU ELECTROLYTE REPLACEMENT PROTOCOL SCH (05:51)
[2022-09-23] MEDS: ACETAMINOPHEN 500 MG TAB PO PRN (06:44)
--- NOTE | 2022-09-23 07:41 | Critical Care Progress Note ---
Date of Service September 23, 2022 Assessment & Plan (1) Carotid artery stenosis: (2) Arterial hypotension: (3) Confusion: Plan Reason Critically Ill: Patient is a 87-year-old male status post left TCAR 09/21/2022 Neuro - Sedation: None Confusion Per Dr. Alegria, confusion appears to be baseline. The hypertension may be also playing a role. Cardiac - Hypotension Currently requiring 0.4 phenylephrine. We will start on 5 mg midodrine 3 times daily. 500 mL of lactated Ringer given. Continue to monitor. Lactate and Pro-Shmion this morning were negative. Patient remains afebrile, and does not appear to be septic at this time. Carotid artery stenosis Status post left TCAR 09/21/2022 Monitor in the ICU for frequent neurovascular checks, maintaining hemodynamic stability and monitoring for airway difficulties. Maintain systolic blood pressures in the 140s per Dr. Alegria. He we will start the patient on oral ps eudoephedrine. Continue antiplatelet therapy and anticoagulant per Dr. Alegria. Troponin to follow overnight did not reveal any evidence of new findings on imaging. Respiratory - On room air, no acute complaints at this time. GI - Heart healthy diet. RENAL/LYTES - No significant electrolyte derangement. Replace lytes as needed. - No concerns at this time. ENDO - Follow ICU hyperglycemic protocols HEME - Stable H&H. Continue to monitor with morning labs. ID - Patient is having some hypotensive episodes of unknown etiology. Currently no signs or concerns for infection at this point. Lactate and Pro-Shimon negative this AM. Continue to monitor closely. LINES/IV ACCESS - PIVs intact. DVT PROPHYLAXIS - Warfarin Thank you for allowing us to be part of this patient's care. Please refer to attending physician's documentation for any further recommendations. Admission and Anticipated Discharge Date Admission Date: September 21, 2022 Supervising Physician Co-Signing Physician Notes Patient seen and examined with resident physician. Agree with the assessment and plan aside for any additions/exceptions noted: Patient requiring phenylephrine this morning. Midodrine 5 mg 3 times daily a dded to the regimen to maintain systolic blood pressures above 90. Lactate and procalcitonin unremarkable. Patient appears neurologically intact. Disposition defered to vascular surgery. Subjective Patient was seen bedside this morning. No issues or concerns at this time Review of Systems Review of Systems: All systems reviewed & are unremarkable except as noted in Subjective Physical Exam Eyes: PERRL, conjunctivae normal, anicteric sclerae ENMT: external ear and nose normal, oropharynx normal Neck: Limited range of motion of the neck. Periclavicular incision noted. Clean and dry. Intact. Respiratory: normal respiratory effort, lungs clear to auscultation Gastrointestinal (Abdomen): normal bowel sounds, soft, nontender, no hepatosplenomegaly Neurologic: PERRL, EOMI, accommodation nl, no face palsy, no dysarthria Psychiatric: A+Ox3, euthymic affect Results & Data Results & Data Vital Signs (Past 12 Hours) Vital Signs Temp Pulse Pulse Resp BP BP Pulse Ox 09/23/22 07:34 64 09/23/22 06:20 65 19 09/23/22 06:10 57 L 16 96 09/23/22 06:00 56 L 16 94 09/23/22 06:00 105/51 L 09/23/22 05:50 56 L 15 94 09/23/22 05:40 67 20 94 09/23/22 05:30 60 15 95 09/23/22 05:30 115/51 L 09/23/22 05:20 58 L 16 95 09/23/22 05:10 60 16 95 09/23/22 05:00 63 22 97 09/23/22 05:00 140/64 09/23/22 04:50 49 L 16 95 09/23/22 04:40 50 L 16 95 09/23/22 04:30 48 L 16 94 09/23/22 04:30 127/54 L 09/23/22 04:20 51 L 16 95 09/23/22 04:10 52 L 17 95 09/23/22 04:00 49 L 16 93 09/23/22 04:00 134/50 L 09/23/22 03:50 49 L 17 95 09/23/22 03:40 50 L 16 95 09/23/22 03:30 50 L 17 93 09/23/22 03:30 137/53 L 09/23/22 03:20 49 L 14 94 09/23/22 03:10 50 L 16 94 09/23/22 03:00 50 L 17 93 09/23/22 03:00 127/49 L 09/23/22 02:50 50 L 17 94 09/23/22 02:40 51 L 17 95 09/23/22 02:30 52 L 17 94 09/23/22 02:30 134/53 L 09/23/22 02:20 52 L 17 94 09/23/22 02:10 54 L 18 95 09/23/22 02:00 56 L 16 95 09/23/22 02:00 141/53 H 09/23/22 01:50 72 17 94 09/23/22 01:40 65 16 93 09/23/22 01:30 142/60 H 09/23/22 01:20 70 23 95 09/23/22 01:10 68 26 H 95 09/23/22 01:01 63 19 96 09/23/22 01:01 128/67 09/23/22 01:00 57 L 14 97 09/23/22 00:50 49 L 11 L 94 09/23/22 00:40 50 L 17 95 09/23/22 00:30 51 L 17 93 09/23/22 00:30 138/50 L 09/23/22 00:20 48 L 5 L 93 09/23/22 00:10 49 L 8 L 93 09/23/22 00:00 50 L 09/23/22 00:00 49 L 12 94 09/23/22 00:00 128/50 L 09/22/22 23:50 50 L 16 92 09/22/22 23:40 51 L 17 93 09/22/22 23:30 54 L 18 94 09/22/22 23:30 161/59 H 09/22/22 23:20 56 L 14 95 09/22/22 23:10 58 L 14 95 09/22/22 23:00 59 L 13 94 09/22/22 23:00 169/61 H 09/22/22 22:50 52 L 17 95 09/22/22 22:40 62 14 96 09/22/22 22:30 59 L 16 96 09/22/22 22:20 52 L 17 95 09/22/22 22:10 52 L 17 95 09/22/22 22:00 54 L 16 95 09/22/22 22:00 176/74 H 09/22/22 21:50 52 L 17 96 09/22/22 21:40 53 L 16 95 09/22/22 21:30 53 L 18 95 09/22/22 21:30 168/72 H 09/22/22 21:20 52 L 18 94 09/22/22 21:10 62 12 95 09/22/22 21:00 59 L 16 92 09/22/22 21:00 155/67 H 09/22/22 20:50 55 L 16 94 09/22/22 20:40 57 L 17 95 09/22/22 20:30 60 14 95 09/22/22 20:30 140/67 09/22/22 20:20 63 18 94 09/22/22 20:10 66 16 96 09/22/22 20:00 60 17 92 09/22/22 20:00 150/63 H 09/22/22 19:50 63 21 95 09/22/22 21:56 36.5 C 56 L 16 159/56 H 96 O2 Del Method 09/23/22 07:34 09/23/22 06:20 09/23/22 06:10 09/23/22 06:00 09/23/22 06:00 09/23/22 05:50 09/23/22 05:40 09/23/22 05:30 09/23/22 05:30 09/23/22 05:20 09/23/22 05:10 09/23/22 05:00 09/23/22 05:00 09/23/22 04:50 09/23/22 04:40 09/23/22 04:30 09/23/22 04:30 09/23/22 04:20 09/23/22 04:10 09/23/22 04:00 09/23/22 04:00 09/23/22 03:50 09/23/22 03:40 09/23/22 03:30 09/23/22 03:30 09/23/22 03:20 09/23/22 03:10 09/23/22 03:00 09/23/22 03:00 09/23/22 02:50 09/23/22 02:40 09/23/22 02:30 09/23/22 02:30 09/23/22 02:20 09/23/22 02:10 09/23/22 02:00 09/23/22 02:00 09/23/22 01:50 09/23/22 01:40 09/23/22 01:30 09/23/22 01:20 09/23/22 01:10 09/23/22 01:01 09/23/22 01:01 09/23/22 01:00 09/23/22 00:50 09/23/22 00:40 09/23/22 00:30 09/23/22 00:30 09/23/22 00:20 09/23/22 00:10 09/23/22 00:00 09/23/22 00:00 09/23/22 00:00 09/22/22 23:50 09/22/22 23:40 09/22/22 23:30 09/22/22 23:30 09/22/22 23:20 09/22/22 23:10 09/22/22 23:00 09/22/22 23:00 09/22/22 22:50 09/22/22 22:40 09/22/22 22:30 09/22/22 22:20 09/22/22 22:10 09/22/22 22:00 09/22/22 22:00 09/22/22 21:50 09/22/22 21:40 09/22/22 21:30 09/22/22 21:30 09/22/22 21:20 09/22/22 21:10 09/22/22 21:00 09/22/22 21:00 09/22/22 20:50 09/22/22 20:40 09/22/22 20:30 09/22/22 20:30 09/22/22 20:20 09/22/22 20:10 09/22/22 20:00 09/22/22 20:00 09/22/22 19:50 09/22/22 21:56 Room Air Laboratory Results 09/23/22 04:52 09/23/22 04:52
[2022-09-23] MEDS ORDERED: LACTATED RINGER'S 1,000 ML IV SCH (07:45)
[2022-09-23] MEDS: ASPIRIN 81 MG CHEW PO SCH (08:12)
[2022-09-23] MEDS: CARBIDOPA/LEVODOPA 25/100MG TAB PO SCH ×3 (08:13→20:34)
[2022-09-23] MEDS: MULTIVITAMIN TAB PO SCH (08:14)
[2022-09-23] MEDS: LOSARTAN POTASSIUM 50 MG TAB PO SCH (08:14)
[2022-09-23] MEDS: TICAGRELOR 90 MG TAB PO SCH ×2 (08:15→20:34)
[2022-09-23] MEDS: POLYETHYLENE (MIRALAX) 17 GM PACK PO SCH (08:15)
--- NOTE | 2022-09-23 08:29 | Billing Data ---
Date of Service September 23, 2022 CRITICAL CARE TIME - I have personally spent 34 minutes of critical care time in the direct management of this patient. This is a life/limb threatening event. This includes time spent evaluating patient, direct bedside care, chart review, placing orders, interpretation of diagnostic studies, discussion with consultants, patient, and family members, as well as other required patient management activities. This time is exclusive of all separately billable procedures, and teaching time and separate from and in addition to any other critical care service time. Coding Level of Care Code 16453 CRITICAL CARE 1ST 30-74M Time Spent (min) 34
[2022-09-23] MEDS ORDERED: LACTATED RINGER'S 500 ML IV ONE (08:30)
[2022-09-23] MEDS: MIDODRINE HCL 2.5 MG TAB PO SCH ×3 (08:58→17:37)
[2022-09-23] MEDS ORDERED: MIDODRINE HCL 2.5 MG TAB PO SCH ×2 (12:00)
--- NOTE | 2022-09-23 13:05 | Surgery Progress Note ---
Date of Service September 23, 2022 Assessment & Plan (1) Internal carotid artery stent present: Plan: This gentleman is postoperative day 2 from a TCAR. He is doing well with no new neurological deficits. (2) Arterial hypotension: Plan: He is now off the Delmar-Synephrine and doing well on the Sudafed. We will transfer him to the floor and most likely be discharged tomorrow. Admission and Anticipated Discharge Date Admission Date: September 21, 2022 Subjective Patient is up in a chair today and feeling much better. He has no complaints. Physical Exam Constitutional: WD/WN, vitals as above Respiratory: normal respiratory effort; no respiratory distress Cardiovascular: Rate/Rhythm: regular rate and regular rhythm Musculoskeletal: no cyanosis or clubbing, extremities motor strength 5/5 Skin: + incision (Dry and clean with mild ecchymosis) Neurologic: CN's II-XI intact bilaterally and moves all extremities; no focal motor deficits Psychiatric: Orientation: alert and oriented x 3 Results & Data Vital Signs (Past 12 Hours) Vital Signs Pulse Resp BP Pulse Ox 09/23/22 07:34 64 09/23/22 06:20 65 19 09/23/22 06:10 57 L 16 96 09/23/22 06:00 56 L 16 94 09/23/22 06:00 105/51 L 09/23/22 05:50 56 L 15 94 09/23/22 05:40 67 20 94 09/23/22 05:30 60 15 95 09/23/22 05:30 115/51 L 09/23/22 05:20 58 L 16 95 09/23/22 05:10 60 16 95 09/23/22 05:00 63 22 97 09/23/22 05:00 140/64 09/23/22 04:50 49 L 16 95 09/23/22 04:40 50 L 16 95 09/23/22 04:30 48 L 16 94 09/23/22 04:30 127/54 L 09/23/22 04:20 51 L 16 95 09/23/22 04:10 52 L 17 95 09/23/22 04:00 49 L 16 93 09/23/22 04:00 134/50 L 09/23/22 03:50 49 L 17 95 09/23/22 03:40 50 L 16 95 09/23/22 03:30 50 L 17 93 09/23/22 03:30 137/53 L 09/23/22 03:20 49 L 14 94 09/23/22 03:10 50 L 16 94 09/23/22 03:00 50 L 17 93 09/23/22 03:00 127/49 L 09/23/22 02:50 50 L 17 94 09/23/22 02:40 51 L 17 95 09/23/22 02:30 52 L 17 94 09/23/22 02:30 134/53 L 09/23/22 02:20 52 L 17 94 09/23/22 02:10 54 L 18 95 09/23/22 02:00 56 L 16 95 09/23/22 02:00 141/53 H 09/23/22 01:50 72 17 94 09/23/22 01:40 65 16 93 09/23/22 01:30 142/60 H 09/23/22 01:20 70 23 95 09/23/22 01:10 68 26 H 95
[2022-09-23] MEDS: WARFARIN SOD 2 MG TAB PO SCH (17:37)
[2022-09-23] MEDS: PANTOprazole 40 MG TAB PO SCH (20:34)
[2022-09-23] MEDS: ATORVASTATIN 40 MG TAB PO SCH (20:34)
[2022-09-24] MEDS: CARBIDOPA/LEVODOPA 25/100MG TAB PO SCH (08:32)
[2022-09-24] MEDS: MULTIVITAMIN TAB PO SCH (08:33)
[2022-09-24] MEDS: POLYETHYLENE (MIRALAX) 17 GM PACK PO SCH (08:33)
[2022-09-24] MEDS: TICAGRELOR 90 MG TAB PO SCH (08:33)
[2022-09-24] MEDS: MIDODRINE HCL 2.5 MG TAB PO SCH (08:33)
[2022-09-24] MEDS: ASPIRIN 81 MG CHEW PO SCH (08:34)
--- NOTE | 2022-09-24 08:54 | Surgery Progress Note ---
Date of Service September 24, 2022 Assessment & Plan (1) Internal carotid artery stent present: Plan: This gentleman is postoperative day 3 from a TCAR. He is doing well with no new neurological deficits. (2) Arterial hypotension: Plan: Pressure doing well on Sudafed. Will d/c today with a short course of Sudafed. Admission and Anticipated Discharge Date Admission Date: September 21, 2022 Subjective Patient is up in a chair today and feeling much better. He has no complaints. No further dizziness. He is dressed and ready to go home. Physical Exam Constitutional: WD/WN, vitals as above Respiratory: normal respiratory effort; no respiratory distress Cardiovascular: Rate/Rhythm: regular rate and regular rhythm Skin: + incision (Dry and clean with mild ecchymosis) Neurologic: CN's II-XI intact bilaterally and moves all extremities; no focal motor deficits Psychiatric: Orientation: alert and oriented x 3 Results & Data Vital Signs (Past 12 Hours) Vital Signs Temp Pulse Resp BP Pulse Ox O2 Del Method 09/23/22 22:11 37 C 68 14 149/74 H 96 Room Air
--- NOTE | 2022-09-26 10:30 | Discharge Summary ---
Date of Service September 26, 2022 Admission HPI Per Admitting Provider Chief Complaint rm#6 here for f/u with bilateral blurriness when trying to read. Last 1 hour, was resolved prior to arriving at hospital. Mornings he munson foginess. Subjective I had the pleasure of seeing Sunil today for evaluation of his carotid disease. As you know he is an 87-year-old gentleman who we have seen in the past for mild carotid artery occlusive disease. Earlier this year he developed an e pisode of not being able to read the paper. He claims he had black lines across the newspaper with blurring of the words. This was not associated with the right or left side. He claims was both eyes. He had no focal weakness or paresthesias during this episode which lasted approximately an hour. It totally resolved and he has had no episodes since. A CT angiogram was obtained which showed an 80 to 90% narrowing of his right internal carotid artery and an 80% narrowing of his left internal carotid artery. He is left hemisphere dominant and right-handed. Objective Vitals & Measurements HR: 72 (Monitored) BP: 106/64 SpO2: 97% Physical Exam On exam he is awake alert and oriented x3. He is in no apparent distress. His blood pressure is 112/62 on the left and 106/64 on the right. His radials are +2 bilaterally as well as a superficial temporal arteries. He does have soft bilateral carotid bruits. His lungs are clear to auscultation. His heart had a regular rate and rhythm with a 2/6 systolic ejection murmur. Abdominal exam is benign with no dilatation of the aorta. Femorals and pedal pulses are all +2 bilaterally. Neurologic exam was intact motor and sensory function. Assessment/Plan Carotid stenosis, bilateral At this point being that he has greater than 80% narrowing in the left carotid and an 80 to 90% narrowing the right carotid we recommended both sides to be treated. Being that his left hemisphere dominant we elected to do the left side first. He is a candidate for TCAR. Surgical endarterectomy would be difficult due to his fusion of his neck bones and inability to move his neck. He understands the risks options benefits of the TCAR procedure and agrees to go ahead with the procedure. We did place him on Plavix which is required for the TCAR and will continue his statin and aspirin which is also required for the TCAR. We will schedule the left side in the next few weeks and plan on doing the right side approximately 4 weeks later. Thank you very much for letting us participate in the care of this patient. Sincerely, Spring Alegria MD Signature Line Electronic Signature on File Renan Alegria MD Author Signature Dt/Tm: 09/12/2022 03:25 PM [employer]und[employer] Work[employer] Shreyas Riggs [facility] [address], [address] [place] [address] EJS Result Type: .Outpt Ltr Date of Service: September 12, 2022 15:20 EDT Authorization Status: Final Subject: Follow Up Visit Author or Import Date: MD Alegria Eugene J on September 12, 2022 15:25 EDT Verified By: MD Alegria Eugene J on September 12, 2022 15:25 EDT Encounter info: [id number], [facility], Clinic, 09/12/2022 - 09/12/2022 Admission Exam Per Admitting Provider On exam he is awake alert and oriented x3. He is in no apparent distress. His blood pressure is 112/62 on the left and 106/64 on the right. His radials are +2 bilaterally as well as a superficial temporal arteries. He does have soft bilateral carotid bruits. His lungs are clear to auscultation. His heart had a regular rate and rhythm with a 2/6 systolic ejection murmur. Abdominal exam is benign with no dilatation of the aorta. Femorals and pedal pulses are all +2 bilaterally. Neurologic exam was intact motor and sensory function. Principal Diagnosis 1. s/p L TCAR 2. LICAS Discharge Exam Constitutional WD/WN, vitals as above Neck trachea midline Respiratory normal respiratory effort; no respiratory distress Cardiovascular Rate/Rhythm: regular rate and regular rhythm Musculoskeletal no cyanosis or clubbing, extremities motor strength 5/5 Skin + incision (Dry and clean with mild ecchymosis) Neurologic CN's II-XI intact bilaterally and moves all extremities; no focal motor deficits Psychiatric Orientation: alert and oriented x 3 Discharge Data Allergies Allergy/AdvReac Type Severity Reaction Status Date / Time No Known Drug Allergies Allergy Unknown Verified 09/21/22 10:18 glycopyrrolate AdvReac Intermediate frequent Verified 09/21/22 10:18 urination, difficulty urinating, dribbling urine Consultations 09/21/22 16:23 Consult Gauger Chief Routine Procedures Performed Operation Date: 09/21/22 12:00 Actual Procedures p Left Transcarotid Artery Revascularization, ulstrasound location femoral vein(Left) - Renan Alegria MD Ordered Studies 09/21/22 07:21 EV angio carotid cerv LT Routine US EV guide vascular access Routine 09/22/22 04:39 CT angio head w con Stat CT head/brain wo con Stat CTA neck with con [CT angio neck with con] Stat Hospital Course (1) Internal carotid artery stent present: This gentleman is postoperative day 3 from a TCAR. He is doing well with no new neurological deficits. (2) Arterial hypotension: Pressure doing well on Sudafed. Will d/c today with a short course of Sudafed. Total Time Total Time Spent Total Time Spent (In Minutes): 0 Discharge Plan Discharge Items Patient Disposition: Home - Self-Care Reason For Visit: BILATERAL CAROTID ARTERY STENOSIS Discharge Diagnosis: Bilateral carotid artery stenosis. Activity: Per Instructions section Non-emergency contact: Surgeon Call non-emergency contact if: your temperature is above 101.5, your wound has increased redness, your wound has increased drainage and your wound pain has increased Follow-up/Referrals: Elli Chung DO [Primary Care Provider] - 10/04/22 10:20 am (APPOINTMENT WITH [facility]) Renan Alegria MD [Physician] - (THE OFFICE WILL CALL YOU WITH A HOSPITAL FOLLOW UP VISIT.) Diet: Heart Healthy Addtl Attending Provider Instructions: SPECIAL CARE INSTRUCTIONS: Medications: * Continue to take Aspirin, Brilinta, and statin non stop for 30days. After that if you need to stop any of these, notify my office at [phone] Incision Care: * You may shower, but do not rub incision. You may let the warm soapy water run over it. Be sure to dry the incision well after bathing. * Do not shave directly over the incision until it is healed. * DO NOT IMMERSE THE INCISION IN A TUB/POOL/etc. UNTIL HEALED. Restrictions: * Do not drive for at least one week or if you are still taking any narcotic pain medication. * Do not lift anything heavier than a gallon of milk for one week after going home. Possible Complications: * Numbness - It is normal to have some numbness around the incision. Numbness can extend beyond the incision to areas of the neck, ear and face. The numbness is due to bruising of nerves during the surgery and will gradually improve over a period of months. * Hoarseness/Difficulty Speaking and Swallowing - The bruising of nerves in the neck can also cause a hoarse voice, difficulty speaking or swallowing. This may improve over time, HOWEVER, if it continues for more than a few days please contact our office ([phone]). * Excessive Swelling - There will be some swelling immediately after surgery which usually resolves within one week. If you notice that the swelling is getting worse, notify your surgeon ([phone]). * Drainage/Bleeding - If there is any drainage or bleeding, it should be a very small amount (less than a teaspoon per day). If you have excessive bleeding or drainage from the incision, call your surgeon ([phone]) right away. ACTIVATION OF EMERGENCY MEDICAL SYSTEM: Call 911, immediately, if you experience any of the following: Warning Signs and Symptoms of Stroke: * Sudden numbness or weakness of the face, arm or leg, especially on one side of the body * Sudden confusion, trouble speaking or understanding * Sudden trouble seeing in one or both eyes * Sudden trouble walking, dizziness, loss of balance or coordination * Sudden severe headache with no cause Do not delay calling 911 if you experience any warning signs or symptoms of a stroke. Delay in seeking medical attention may affect what treatments can be given to you. Risk Factors for Stroke: You can reduce your chances of stroke by working with your medical provider to adopt a healthy lifestyle. Some specific ways to lower your chance of stroke are: * If you are a smoker, now is the time to stop smoking cigarettes * If you are diabetic, improve the control of your blood sugars * Avoid excessive amounts of alcohol * Control high blood pressure * Lose weight if you are overweight * Be sure to lead an active lifestyle * Eat a healthy diet low in salt, cholesterol and fat You should know about other risk factors for stroke that you are unable to control. These include: * Age 55 years or older * Male gender * Certain racial groups: , or / * Family History of Stroke, Mini stroke or Heart Attack * Sickle Cell Disease You will be receiving a call from the Vascular Surgery Nurse after you are discharged. FOLLOW UP VISIT: It is important for you to keep your follow up appointments with your medical provider. Keep any scheduled doctor appointments. Call [phone] to schedule a follow up appointment if one not already scheduled. Pending Studies at Discharge: No Stand-Alone Forms: My [facility], Pain - Opioid Pain Management, Smoking Cessation Medications and DC Order Prescriptions: New oxycodone-acetaminophen [Percocet] 5-325 mg tablet 1 tab PO Q8H PRN (Reason: pain) Qty: 7 0RF pseudoephedrine HCl [Sudafed] 30 mg tablet 30 mg PO Q6H PRN (Reason: nasal congestion) Qty: 20 0RF Rx Instructions: Take one every six hours if blood pressure less than 110 systolic Continued One-A-Day Men's Multivitamin 400-20-300 mcg tablet 1 tab PO QAM atorvastatin 40 mg tablet 40 mg PO QPM Qty: 90 3RF olmesartan 20 mg tablet 10 mg PO DAILY 30 Days Qty: 15 0RF carbidopa-levodopa 25-100 mg tablet 0.5 tab PO TID Qty: 90 1RF warfarin 2 mg tablet 2 mg PO UD Rx Instructions: 4mg qTh, 2mg x 6 days -- Per [facility] [id number] acetaminophen [Acetaminophen Extra Strength] 500 mg Tablet 1,000 mg PO BID PRN (Reason: Pain) pantoprazole 40 mg tablet,delayed release (DR/EC) 40 mg PO QPM aspirin [Children's Aspirin] 81 mg Tablet,Chewable 81 mg PO DAILY 30 Days Qty: 30 0RF Brilinta 60 mg Tablet 60 mg PO BID polyethylene glycol 3350 [Miralax] 17 gram Powder In Packet 34 g PO DAILY 30 Days Qty: 60 0RF Discharge Orders: Discharge Order (Routine); Ordered 09/24/22 Ordered By: Renan Alegria Admission Data Admit Date/Time: 09/21/22 10:37 Attending Provider: Renan Alegria Admit Provider: Renan Alegria Primary Care Provider: Elli Chung Other Providers: Edu Parsons ; Silas Long ; Betito Boyd ; Naveed Potter ; Benedicto Villa ; Fili Marie ; Shakila Claros ; Zeyad Garcia ; Tisha Wray Other Interventions: Discharge Summary Assessment (RN) Last Done: 09/24/22 10:24
== END 2022-09-24 11:26 | disposition home or self-care (01) | DRG 36 ==
LOC: ASU 09:50 → 1E 10:37 → 3W 09-23 13:01 → 3N 09-23 17:34
PROC: EV.TCAR (2022-09-21 12:00)

== ENCOUNTER 2022-11-14 06:12 | Inpatient (IN) ==
--- NOTE | 2022-11-01 14:18 | Anesthesiology Consultation ---
Date of Service November 01, 2022 Assessment & Plan Chart Review Chart Review: Acceptable Risk for Surgery and Patient NOT seen in Pre Admission Testing Consults Requested none ASA ASA4 Proposed Anesthesia Anesthesia Type: General Anesthesia Line Insertion: Arterial line History Surgery Operation Date: 11/14/22 09:00 Proposed Procedures p Right Transcarotid Artery Revascularization - Renan Alegria MD Height/Weight Height: 5 ft 6 in Weight: 77.111 kg Allergies Allergy/AdvReac Type Severity Reaction Status Date / Time glycopyrrolate AdvReac Intermediate frequent Verified 09/27/22 10:26 urination, difficulty urinating, dribbling urine Medications Home Medications Medication Instructions Recorded Confirmed Last Taken acetaminophen 500 mg tablet 1,000 mg PO BID PRN Pain 02/09/18 11/01/22 08/13/18 (Acetaminophen Extra Strength) 0800 fnhxjryf-phhqsvtc-cuxzw acid 400 1 tab PO QAM 07/15/21 11/01/22 09/20/22 20:00 mcg-vit K 20 mcg-lycop 300 mcg tablet (One-A-Day Men's Multivitamin) pantoprazole 40 mg tablet,delayed 40 mg PO QPM 08/31/22 11/01/22 09/20/22 20:00 release ticagrelor 60 mg tablet (Brilinta) 60 mg PO BID 09/21/22 11/01/22 09/21/22 07:30 warfarin 2 mg tablet See Rx Instructions PO UD 09/27/22 11/01/22 Unknown carbidopa 25 mg-levodopa 100 mg 0.5 tab PO TID #90 tabs 10/28/22 11/01/22 Unknown tablet aspirin 81 mg tablet,delayed 81 mg PO QAM 11/01/22 11/01/22 Unknown release Past Medical History Medical History Higgins's esophagus BPH (benign prostatic hyperplasia) Carotid artery stenosis Diaphragmatic hernia Diverticulosis Dysphagia DUE TO PARKINSONS GERD (gastroesophageal reflux disease) History of COVID-19 04/2022- CONGESTION, STEEL, FATIGUE, RESOLVED History of deep vein thrombosis 10+ YRS AGO, AFTER INJURY FROM AN ACCIDENT, TREATED WITH COUMADIN 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) Hx of colonic polyps Hx of gout Hyperlipidemia Hypertension Lumbar canal stenosis Monoclonal gammopathy of undetermined significance On anticoagulant therapy Parkinsons disease Prediabetes Stercoral colitis Stroke-like symptoms 08/2022- elevated bp, blurred vision, light headed; was seen and treated at [facility] Exercise / Class Metabolic Activity III < 4 Walking/Shop/Light housework Past Family History Family History Other No family history of bleeding disorder Denies family history of Ovarian cancer Prostate cancer Myocardial infarction Breast cancer Colorectal cancer Past Surgical History Surgical History History of bilateral cataract extraction History of blepharoplasty (03/2007) L History of colonoscopy History of tooth extraction upper teeth Hx of vasectomy S/P TURP (02/2011) Status post carotid surgery Left Transcarotid Artery Revascularization 09/21/22 Past Anesthesia History No Hx of Anesthesia Complications and No Family Hx of Anesthesia Complications History of PONV No Hx of PONV and No Hx of Motion Sickness Social History Smoking Status: Former smoker tobacco type: cigarettes Smoking cigarettes per day: QUIT WHEN HE WAS IN HIS EARLY 20'S Do You Dip or Chew Tobacco: No Hx Alcohol Use: Yes Alcohol type: wine alcohol intake frequency: holidays/special occasions only substance use type: does not use Testing Electrocardiogram Date: 08/31/22 Findings: + NSR @ (@ 75) Chest X-Ray Date: 08/31/22 Findings: + NAD
[~2022-11-14 06:12] MED LIST changes: -ACETAMINOPHEN 1000 MG/100 ML IV IV ONE; -ALBUMIN HUMAN 5% 12.5 GM/250 ML VIAL IV ONE; +CEFAZOLIN 2,000 MG/15 ML SYR IV SCH; -DEXAMETHASONE SOD INJ 4 MG/ML VIAL ONE; -GLYCOPYRROLATE 0.2 MG/ML VIAL ONE; -HEPARIN SOD (PORCINE) 1000 UNIT/ML ONE; -LACTATED RINGER'S 1,000 ML IV SCH; -LIDOCAINE 2% 2 ML VIAL/AMP(20MG/ML) INFIL ONE; -MIDAZOLAM HCL 1 MG/ML 2ML VIAL ONE; -ONDANSETRON INJ 2 MG/ML 2 ML VIAL ONE; -PROPOFOL IV EMULSION 10 MG/ML 20 ML VIAL IV ONE; -ROCURONIUM BROMIDE 10 MG/ML 5 ML VIAL IV ONE; +SODIUM CHLORIDE 0.9% 1000ML 1,000 ML IV SCH; -SUCCINYLCHOLINE CHLORIDE 20 MG/ML 10 ML VIAL IV ONE; -ceFAZolin 2000MG 2,000 MG/15 ML SYR IV SCH; -ePHEDrine sulfate 50 MG/ML SYR ONE; -fentaNYL citrate PF 100 MCG/2 ML VIAL ONE
[2022-11-14 07:06] LABS: BUN Creatinine Ratio 23.4 (10-20); Calcium 9.6 mg/dl (8.6-10.3); Creatinine Clr Calc Pharmacy 39.8 ml/min; Est GFR (African American) 57.9 ml/min; Potassium 3.9 mmol/L (3.5-5.1)
[2022-11-14 07:16] LABS: INR 1.6 (0.9-1.1); Partial Thromboplastin Ratio 1.1; Partial Thromboplastin Time 30.7 Seconds (21.0-31.0); Prothrombin Time 16.7 Seconds (9.0-12.0)
[2022-11-14] MEDS ORDERED: LIDOCAINE 2% 2 ML VIAL/AMP(20MG/ML) INFIL ONE (07:17)
[2022-11-14] MEDS ORDERED: PROPOFOL IV EMULSION 10 MG/ML 20 ML VIAL IV ONE (07:17)
[2022-11-14] MEDS ORDERED: fentaNYL citrate PF 100 MCG/2 ML VIAL ONE ×2 (07:17→08:47)
[2022-11-14] MEDS ORDERED: ROCURONIUM BROMIDE 10 MG/ML 5 ML VIAL IV ONE (07:17)
[2022-11-14] MEDS ORDERED: GLYCOPYRROLATE 0.2 MG/ML VIAL ONE (07:17)
[2022-11-14] MEDS ORDERED: fentaNYL citrate PF 100 MCG/2 ML VIAL IV PRN (07:21)
[2022-11-14] MEDS ORDERED: ONDANSETRON INJ 2 MG/ML 2 ML VIAL IV PRN (07:21)
[2022-11-14] MEDS ORDERED: LABETALOL HCL IV 5 MG/ML 20ML IV PRN (07:21)
[2022-11-14] MEDS ORDERED: ePHEDrine sulfate 50 MG/ML AMP IV PRN (07:21)
[2022-11-14] MEDS ORDERED: ATROPINE SULFATE 0.1 MG/ML 10ML SYR IV PRN (07:21)
[2022-11-14] MEDS ORDERED: FLUMAZENIL 0.1 MG/1 ML 10 ML VIAL IV PRN (07:21)
[2022-11-14] MEDS ORDERED: PROMETHAZINE HCL 12.5 MG in SODIUM CHLORIDE 0.9% 50 ML IV PRN (07:21)
[2022-11-14] MEDS ORDERED: NALOXONE HCL 0.4 MG/1 ML VIAL/CARP IV PRN (07:21)
--- NOTE | 2022-11-14 07:22 | History & Physical Report ---
Date of Service November 14, 2022 Assessment & Plan (1) Carotid artery stenosis: Plan: Patient is admitted for a right TCAR. I have discussed the risks options and benefits of the procedure with the patient. The patient understands the risks options and benefits and agrees to the procedure. History of Present Illness Chief Complaint: right internal carotid artery stenosis Primary Care Provider: Elli Chung DO Mr. Zendejas is an elderly male who presents for a follow-up visit after undergoing a left-sided transcarotid artery revascularization procedure at [facility]. Patient overall states he is feeling well, but is still somewhat easily fatigued. He denies any new complaints of cerebrovascular insufficiency, including amaurosis, extremity weakness numbness or tingling, difficulty speaking or swallowing, facial droop, sudden onset confusion, other complaints. He is beginning to increase his activity as his body allows. Patient states he would like to proceed with the TCAR procedure on the right side as previously discussed. Allergies Allergy/AdvReac Type Severity Reaction Status Date / Time glycopyrrolate AdvReac Intermediate frequent, Verified 11/05/22 02:04 difficulty urinating, & dribbling Home Medications Medication Instructions Recorded Confirmed Type acetaminophen 500 mg tablet 1,000 mg PO BID PRN Pain 02/09/18 11/14/22 History (Acetaminophen Extra Strength) jflmrbum-wyuyqtvi-mlklx acid 400 1 tab PO QAM 07/15/21 11/14/22 History mcg-vit K 20 mcg-lycop 300 mcg tablet (One-A-Day Men's Multivitamin) pantoprazole 40 mg tablet,delayed 40 mg PO QPM 08/31/22 11/14/22 History release ticagrelor 60 mg tablet (Brilinta) 60 mg PO BID 09/21/22 11/14/22 History warfarin 2 mg tablet See Rx Instructions PO UD 09/27/22 11/14/22 History carbidopa 25 mg-levodopa 100 mg 0.5 tab PO TID #90 tabs 10/28/22 11/14/22 Rx tablet aspirin 81 mg tablet,delayed 81 mg PO QAM 11/01/22 11/14/22 History release Past Med/Surg History Medical History Higgins's esophagus BPH (benign prostatic hyperplasia) Carotid artery stenosis Diaphragmatic hernia Diverticulosis Dysphagia DUE TO PARKINSONS GERD (gastroesophageal reflux disease) History of COVID-19 04/2022- CONGESTION, STEEL, FATIGUE, RESOLVED History of deep vein thrombosis 10+ YRS AGO, AFTER INJURY FROM AN ACCIDENT, TREATED WITH COUMADIN 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) Hx of colonic polyps Hx of gout Hyperlipidemia Hypertension Lumbar canal stenosis Monoclonal gammopathy of undetermined significance On anticoagulant therapy Parkinsons disease Prediabetes Stercoral colitis Stroke-like symptoms 08/2022- elevated bp, blurred vision, light headed; was seen and treated at [facility] Surgical History History of bilateral cataract extraction History of blepharoplasty (03/2007) L History of colonoscopy History of tooth extraction upper teeth Hx of vasectomy S/P TURP (02/2011) Status post carotid surgery Left Transcarotid Artery Revascularization 09/21/22 Family History Other No family history of bleeding disorder Denies family history of Ovarian cancer Prostate cancer Myocardial infarction Breast cancer Colorectal cancer Social History Smoking Status: Former smoker Cigarettes Per Day: QUIT WHEN HE WAS IN HIS EARLY 20'S; Second Hand Exposure: No; Do You Dip or Chew Tobacco: No; Hx Alcohol Use: Yes Alcohol type: wine Alcohol Intake Frequency: Monthly or Less Preferred Language: Lithuanian Communication Ability: Unable Visual Impairment: Limited Hearing Ability: Use of Hearing Aid Assistant Foreman Required: No Beliefs That Will Affect Care: None marital status: Current Living Situation: Spouse Current Living Situation Comment: son assists current occupational status: retired How many Children do You have: 1 Feels Safe at Home: Yes Safety Concerns: Feels Safe At This Time Childhood Exposure to Second-Hand Smoke: Yes (father smoked ) Diet: regular Diet Comment: regular caffeine: Yes during the past year weight has: remained stable Dental Care, Regularly: Yes Physical Activity Frequency: Daily Seatbelt Use: always Sunscreen Use: No Assistive Devices: Denture - Upper, Glasses and Hearing Aid - Bilateral Assistive Devices Comment: partial lower Review of Systems All systems reviewed & are unremarkable except as noted in HPI & below Physical Exam Physical Exam: On exam he is awake alert and oriented x3. He is in no apparent distress. His blood pressure is 112/62 on the left and 106/64 on the right. His radials are +2 bilaterally as well as a superficial temporal arteries. He does have soft bilateral carotid bruits.His left neck incision is healed nicely. His lungs are clear to auscultation. His heart had a regular rate and rhythm with a 2/6 systolic ejection murmur. Abdominal exam is benign with no dilatation of the aorta. Femorals and pedal pulses are all +2 bilaterally. Neurologic exam was intact motor and sensory function. His lungs are clear to auscultation. His heart had a regular rate and rhythm with a 2/6 systolic ejection murmur. Abdominal exam is benign with no dilatation of the aorta. Femorals and pedal pulses are all +2 bilaterally. Neurologic exam was intact motor and sensory function. Results & Data Vital Signs (Past 12 Hours) Vital Signs Temp Pulse Resp BP Pulse Ox O2 Del Method 11/14/22 06:35 36.5 C 69 18 148/78 H 98 Room Air
[2022-11-14] MEDS ORDERED: ceFAZolin 330 MG/ML 1 GM VIAL ONE (07:49)
[2022-11-14] MEDS ORDERED: GELATIN SPONGE SZ 100 ONE (07:49)
[2022-11-14] MEDS ORDERED: BUPIVACAINE/EPINEPHRINE 0.5% MPF 1:200,000 30 ML VIAL ONE (07:49)
[2022-11-14] MEDS ORDERED: THROMBIN FOR SOLN 20000 UNIT KIT ONE (07:49)
[2022-11-14] MEDS ORDERED: SURGICEL ABSORB HEMOSTAT 2IN X 14IN TOP ONE (09:05)
[2022-11-14] MEDS ORDERED: VISIPAQUE IV PRN (09:05)
[2022-11-14] MEDS ORDERED: HEPARIN SOD (PORCINE) 1000 UNIT/ML ONE (09:28)
[2022-11-14] MEDS ORDERED: ESMOLOL HCL INJ 10 MG/ML 10ML VIAL IV ONE (09:28)
[2022-11-14] MEDS ORDERED: PROTAMINE SULFATE 10 MG/ML 5 ML VIAL IV ONE (09:28)
[2022-11-14] MEDS ORDERED: ePHEDrine sulfate 50 MG/ML AMP ONE (09:28)
[2022-11-14] MEDS ORDERED: ARISTA ABSORBABLE HEMOSTAT 3GM TOP ONE (09:30)
[2022-11-14] MEDS ORDERED: SUGAMMADEX SODIUM 200 MG/2 ML VIAL IV ONE (09:31)
[2022-11-14] MEDS ORDERED: ONDANSETRON INJ 2 MG/ML 2 ML VIAL ONE (09:32)
--- NOTE | 2022-11-14 09:40 | Procedure Note ---
Angiogram Post Procedure Fluoroscopy Time (minutes): 3.6 Radiation (mGy): 38.26 Contrast: 15 Post Operative Report Pre & Post Diagnosis Operation Date: 11/14/22 08:00 Pre-Op Diagnosis: Right Internal Carotid Artery Stenosis Post-Op Diagnosis: Right Internal Carotid Artery Stenosis I identified the patient and participated in the time-out.: Yes Procedure Operation Date: 11/14/22 08:00 Actual Procedures p Right Transcarotid Artery Revascularization(Right) - Renan Alegria MD Ultrasound localization of left common femoral vein Surgeon Renan Alegria MD Cold Patcher Nidia,PAC Estimated Blood Loss 10 Findings Consistent with Post-Op Diagnosis Specimens none Anesthesia Type General Complications none Disposition Accompanied Patient To Recovery: No Disposition: Recovery Room Indications This is an 87-year-old gentleman who had a left TCAR performed in the past. At that time he was found to have bilateral severe internal carotid artery stenosis. He is now admitted for TCAR of the right side. I have discussed the risks options and benefits of the procedure with the patient. The patient understands the risks options and benefits and agrees to the procedure. Description of Procedure The patient was taken to the operating room and placed in supine position. After general anesthesia was accomplished the groins and right side of the neck and chest were prepped and draped in a sterile manner. Timeout was performed and the patient was identified. A transverse incision was made just above the clavicle between the heads of the sternocleidomastoid. This was carried down to where the common carotid artery was identified. It was isolated and slung with an umbilical tape. It was given 8000units of heparin at that time. Ultrasound was then used to localize the left common femoral vein. The vein was patent and compressed easily. Under ultrasound guidance the left common femoral vein was punctured and the venous sheath was inserted. This was aspirated and flushed with heparinized saline. An ACT at that time was 247. Another 3000 units of heparin was given resulting in the ACT of 367.. Using micropuncture technique the common carotid artery was punctured. The micro sheath was inserted to 2.5 cm. Injection was then done showing the bifurcation. There was a significant lesion seen at the origin of the internal carotid artery on the right side. We reinserted the micro wire and passed it into the external carotid. We then advanced the dilator and sheath into the external carotid. The dilater and sheath were removed. We then inserted the J-wire into the external carotid artery. The TCAR sheath was inserted without the footplate. Once it was in place and held against the artery it was sutured to the chest wall and the incision edge. We then flushed the tubing appropriately. The venous return tubing was clamped onto the TCAR sheath. It was flushed through and then attached to the venous inflow sheath in the right groin. The sheath was checked for flow. The wire was passed through the lesion with the aid of a Kumpe catheter into the petrous portion of the internal carotid.We then inserted a 5x25 balloon. The 5 balloon was then advanced to the lesion. The lesion was then predilated with the 5 mm balloon. The balloon was removed. We then inserted the 9x30 stent. This was deployed across the lesion without difficulty. The catheter was removed. The carotid was allowed to go 2 minutes with flow reversal. Completion angiogram was done at that time which showed no residual stenosis.The wire was removed. At that point the common carotid artery was unclamped. The venous return tubing was clamped and removed from the TCAR sheath. The blood was allowed to flow back into the venous system. Once this was completed the sheath was pulled from the groin and pressure was applied. The TCAR sheath was then removed and the 5-0 Prolene suture securely tied. Hemostasis was noted of the puncture site. Wound was irrigated with Ancef solution. Adequate hemostasis was obtained of the wound. Once this was noted the wound was closed in usual fashion using a 3-0 Vicryl suture for the subcutaneous layer and a 4-0 subcuticular Vicryl suture for the skin edges. Dermabond was used for dressing.The patient left the operation room in satisfactory condition and tolerated the procedure well. All needle and sponge counts were correct at the end of the procedure. Luzmaria Martin Pac assisted due to lack of resident availability and was necessary for positioning, draping, retraction, wound closure deep layers, subcutaneous tissue, and skin closure and was necessary for assisting with the case. I attest to the content of the Intraoperative Record and any orders documented therein. Any exceptions are noted below.
--- NOTE | 2022-11-14 10:45 | Anesthesiology Progress Note ---
Date of Service November 14, 2022 Anesthesia Post Procedure Vital Signs Vital Signs: Temp Pulse Pulse Resp BP BP Pulse Ox 11/14/22 10:20 75 18 140/54 L 140/58 L 98 11/14/22 10:40 74 16 138/51 L 135/56 L 97 11/14/22 10:30 74 14 141/55 H 140/61 98 11/14/22 10:10 79 18 134/53 L 130/62 98 11/14/22 10:03 36 C L 81 18 136/55 L 139/55 L 100 11/14/22 06:35 36.5 C 69 18 148/78 H 98 O2 Del Method O2 Flow Rate 11/14/22 10:20 Oxymask 4 11/14/22 10:40 Room Air 11/14/22 10:30 Room Air 11/14/22 10:10 Oxymask 4 11/14/22 10:03 Oxymask 6 11/14/22 06:35 Room Air Transfer of Care Handoff Completed per policy Notes Mental Status: alert / awake / arousable Patient Amnestic to Procedure: Yes Nausea / Vomiting: adequately controlled Pain: adequately controlled Airway Patency, RR, SpO2: stable & adequate BP & HR: stable & adequate Hydration State: stable & adequate Anesthetic Complications: no major complications apparent
[2022-11-14] MEDS: LACTATED RINGER'S 1,000 ML IV SCH ×2 (11:45→22:38)
[2022-11-14] MEDS: traMADol HCL 50 MG TABLET PO SCH ×3 (13:07→23:34)
[2022-11-14] MEDS: CARBIDOPA/LEVODOPA 25/100MG TAB PO SCH ×2 (13:07→20:19)
[2022-11-14] MEDS: WARFARIN SOD 2 MG TAB PO SCH (16:51)
[2022-11-14] MEDS: ceFAZolin 2000MG 2,000 MG/15 ML SYR IV SCH ×2 (16:51→23:34)
[2022-11-14] MEDS: PANTOprazole 40 MG TAB PO SCH (20:19)
[2022-11-14] MEDS: TICAGRELOR 90 MG TAB PO SCH (20:19)
[2022-11-14] MEDS: ACETAMINOPHEN 500 MG TAB PO PRN (20:20)
[2022-11-15 05:20] LABS: INR 1.5 (0.9-1.1); Prothrombin Time 16.1 Seconds (9.0-12.0)
[2022-11-15] MEDS: MULTIVITAMIN TAB PO SCH (08:13)
[2022-11-15] MEDS: ASPIRIN 81 MG ECTAB PO SCH (08:14)
[2022-11-15] MEDS: LACTATED RINGER'S 1,000 ML IV SCH (08:14)
[2022-11-15] MEDS: CARBIDOPA/LEVODOPA 25/100MG TAB PO SCH ×3 (08:14→20:14)
[2022-11-15] MEDS: traMADol HCL 50 MG TABLET PO SCH ×4 (08:14→23:13)
[2022-11-15] MEDS: TICAGRELOR 90 MG TAB PO SCH ×2 (08:15→20:14)
--- NOTE | 2022-11-15 11:50 | Surgery Progress Note ---
Date of Service November 15, 2022 Assessment & Plan (1) Internal carotid artery stent present: Plan: Doing well. Will transfer to floor and observe for another day due to his feeling weak and the small amount of drainage from the groin. Admission and Anticipated Discharge Date Admission Date: November 14, 2022 Subjective Patient without complaint other than feeling a little weak after surgery Physical Exam Constitutional: WD/WN, vitals as above Neck: trachea midline Respiratory: normal respiratory effort; no respiratory distress Cardiovascular: Rate/Rhythm: regular rate and regular rhythm Skin: + incision (incision dry and clean. groin puncture with small amount of bloody drainage) Neurologic: CN's II-XI intact bilaterally and moves all extremities Psychiatric: Orientation: alert and oriented x 3 Results & Data Vital Signs (Past 12 Hours) Vital Signs Temp Pulse Pulse Resp BP BP BP 11/15/22 10:15 131/53 L 11/15/22 10:15 56 L 14 11/15/22 10:00 57 L 15 11/15/22 10:00 157/61 H 11/15/22 09:45 160/67 H 11/15/22 09:45 59 L 19 11/15/22 09:30 59 L 13 11/15/22 09:30 92/48 L 11/15/22 09:16 137/71 11/15/22 09:16 58 L 18 11/15/22 09:11 101/54 L 11/15/22 09:11 63 21 11/15/22 09:00 54 L 14 11/15/22 09:00 111/47 L 11/15/22 08:30 57 L 14 11/15/22 08:30 117/52 L 11/15/22 08:00 68 19 11/15/22 08:00 121/48 L 11/15/22 07:45 110/53 L 11/15/22 07:45 66 19 11/15/22 07:31 63 14 11/15/22 07:31 134/68 11/15/22 07:30 63 17 11/15/22 07:15 56 L 13 11/15/22 07:15 129/54 L 11/15/22 08:00 55 L 139/55 L 11/15/22 08:00 55 L 11/15/22 07:00 36.7 C 58 L 20 124/47 L 129/58 L 11/15/22 07:00 55 L 16 11/15/22 07:00 139/55 L 11/15/22 06:30 51 L 18 11/15/22 06:15 113/51 L 11/15/22 06:15 51 L 16 11/15/22 06:00 51 L 12 11/15/22 06:00 122/49 L 11/15/22 05:45 122/59 L 11/15/22 05:45 52 L 14 11/15/22 05:30 57 L 19 11/15/22 05:30 128/68 11/15/22 05:15 52 L 13 11/15/22 05:15 121/55 L 11/15/22 05:00 51 L 14 111/53 L 11/15/22 04:30 53 L 14 11/15/22 04:15 58 L 15 11/15/22 04:00 54 L 14 127/57 L 11/15/22 03:45 52 L 5 L 126/56 L 11/15/22 03:30 53 L 3 L 11/15/22 03:30 116/55 L 11/15/22 03:15 54 L 14 124/55 L 11/15/22 03:01 55 L 8 L 134/56 L 11/15/22 03:00 58 L 9 L 11/15/22 03:49 36.7 C 11/15/22 02:45 52 L 0 L 123/56 L 11/15/22 02:30 53 L 3 L 11/15/22 02:30 117/52 L 11/15/22 02:15 118/53 L 11/15/22 02:15 53 L 2 L 11/15/22 02:00 56 L 0 L 118/54 L 11/15/22 01:42 114/57 L 11/15/22 01:42 57 L 22 11/15/22 01:30 54 L 0 L 11/15/22 01:00 59 L 2 L 11/15/22 01:00 115/53 L 11/15/22 00:53 64 21 116/60 11/15/22 00:46 61 16 121/56 L 11/15/22 00:00 62 11/15/22 00:30 55 L 19 11/15/22 00:00 61 16 118/56 L Pulse Ox O2 Del Method 11/15/22 10:15 11/15/22 10:15 95 11/15/22 10:00 96 11/15/22 10:00 11/15/22 09:45 11/15/22 09:45 96 11/15/22 09:30 95 11/15/22 09:30 11/15/22 09:16 11/15/22 09:16 11/15/22 09:11 11/15/22 09:11 11/15/22 09:00 96 11/15/22 09:00 11/15/22 08:30 96 11/15/22 08:30 11/15/22 08:00 96 11/15/22 08:00 11/15/22 07:45 11/15/22 07:45 95 11/15/22 07:31 97 11/15/22 07:31 11/15/22 07:30 98 11/15/22 07:15 95 11/15/22 07:15 11/15/22 08:00 11/15/22 08:00 11/15/22 07:00 96 Room Air 11/15/22 07:00 95 11/15/22 07:00 11/15/22 06:30 91 11/15/22 06:15 11/15/22 06:15 91 11/15/22 06:00 93 11/15/22 06:00 11/15/22 05:45 11/15/22 05:45 94 11/15/22 05:30 96 11/15/22 05:30 11/15/22 05:15 92 11/15/22 05:15 11/15/22 05:00 93 11/15/22 04:30 93 11/15/22 04:15 96 11/15/22 04:00 95 11/15/22 03:45 94 11/15/22 03:30 93 11/15/22 03:30 11/15/22 03:15 95 11/15/22 03:01 95 11/15/22 03:00 95 11/15/22 03:49 11/15/22 02:45 94 11/15/22 02:30 94 11/15/22 02:30 11/15/22 02:15 11/15/22 02:15 94 11/15/22 02:00 95 11/15/22 01:42 11/15/22 01:42 94 11/15/22 01:30 94 11/15/22 01:00 94 11/15/22 01:00 11/15/22 00:53 96 11/15/22 00:46 96 11/15/22 00:00 11/15/22 00:30 97 11/15/22 00:00 96
[2022-11-15] MEDS: WARFARIN SOD 2 MG TAB PO SCH (15:36)
[2022-11-15] MEDS: PANTOprazole 40 MG TAB PO SCH (20:14)
[2022-11-16] MEDS: traMADol HCL 50 MG TABLET PO SCH ×4 (05:55→23:15)
[2022-11-16 09:01] LABS: INR 2.1 (0.9-1.1); Prothrombin Time 22.2 Seconds (9.0-12.0)
[2022-11-16] MEDS: ASPIRIN 81 MG ECTAB PO SCH (09:23)
[2022-11-16] MEDS: CARBIDOPA/LEVODOPA 25/100MG TAB PO SCH ×3 (09:23→20:35)
[2022-11-16] MEDS: TICAGRELOR 90 MG TAB PO SCH ×2 (09:25→20:35)
[2022-11-16] MEDS: MULTIVITAMIN TAB PO SCH (09:25)
[2022-11-16] MEDS: ACETAMINOPHEN 500 MG TAB PO PRN (10:17)
--- NOTE | 2022-11-16 13:48 | Surgery Progress Note ---
Date of Service November 16, 2022 Assessment & Plan (1) Internal carotid artery stent present: Plan: Overall doing well post op. BP and HR WNL. Pain controlled. Manual pressure held to L groin, bleeding appeared to have stopped. Pressure dressing applied. Will continue to increase activity as tolerated, have pt seen by PT/OT d/t generalized deconditioning and recent surgery. Pressure dressing to remain in place until tomorrow. Admission and Anticipated Discharge Date Admission Date: November 14, 2022 Subjective 87 yo m POD #2 after R TCAR procedure, seen in f/u today. Pt admits mild discomfort R neck, controlled with tramadol. Admits feeling lightheaded when he stands/changes position. Per RN, minimal change in BP. Pt denies any new neuro sx. States his L groin has been bleeding. Review of Systems Review of Systems: All systems reviewed & are unremarkable except as noted in HPI & below Physical Exam Constitutional: WD/WN, vitals as above Neck: trachea midline Respiratory: normal respiratory effort; no respiratory distress Cardiovascular: Rate/Rhythm: regular rate and regular rhythm Skin: + incision (incision dry and clean R neck. L groin mild bleeding noted.) Neurologic: CN's II-XI intact bilaterally and moves all extremities Psychiatric: Orientation: alert and oriented x 3 Results & Data Vital Signs (Past 12 Hours) Vital Signs Temp Pulse Resp BP Pulse Ox O2 Del Method 11/16/22 07:29 36.6 C 58 L 17 116/62 94 Room Air
[2022-11-16] MEDS ORDERED: WARFARIN SOD 2 MG TAB PO SCH (16:00)
[2022-11-16] MEDS: PANTOprazole 40 MG TAB PO SCH (20:35)
[2022-11-17] MEDS: traMADol HCL 50 MG TABLET PO SCH ×4 (06:01→23:29)
[2022-11-17 08:53] LABS: INR 2.1 (0.9-1.1); Prothrombin Time 21.9 Seconds (9.0-12.0)
[2022-11-17] MEDS: CARBIDOPA/LEVODOPA 25/100MG TAB PO SCH ×3 (09:12→20:32)
[2022-11-17] MEDS: MULTIVITAMIN TAB PO SCH (09:12)
[2022-11-17] MEDS: ASPIRIN 81 MG ECTAB PO SCH (09:12)
[2022-11-17] MEDS: TICAGRELOR 90 MG TAB PO SCH ×2 (09:13→20:32)
--- NOTE | 2022-11-17 14:29 | Surgery Progress Note ---
Date of Service November 17, 2022 Assessment & Plan (1) Internal carotid artery stent present: Plan: Doing well post TCAR. Awaiting placement. Can go when bed available. Admission and Anticipated Discharge Date Admission Date: November 14, 2022 Subjective Patient feeling better and somewhat stronger today. Denies any focal neuro deficits. Physical Exam Constitutional: WD/WN, vitals as above Neck: trachea midline Respiratory: normal respiratory effort and + respiratory distress Cardiovascular: Rate/Rhythm: regular rate and regular rhythm Skin: + incision (ecchymosis present at the incision site. No drainage) Neurologic: CN's II-XI intact bilaterally and moves all extremities Psychiatric: Orientation: alert and oriented x 3 Results & Data Vital Signs (Past 12 Hours) Vital Signs Temp Pulse Resp BP Pulse Ox O2 Del Method 11/17/22 11:05 Room Air 11/17/22 07:25 36.6 C 69 14 153/73 H 96 Room Air
[2022-11-17] MEDS ORDERED: WARFARIN SOD 2 MG TAB PO SCH (16:00)
[2022-11-17] MEDS: PANTOprazole 40 MG TAB PO SCH (20:32)
[2022-11-18] MEDS: traMADol HCL 50 MG TABLET PO SCH ×2 (06:02→12:18)
[2022-11-18] MEDS: ASPIRIN 81 MG ECTAB PO SCH (08:42)
[2022-11-18] MEDS: CARBIDOPA/LEVODOPA 25/100MG TAB PO SCH ×2 (08:43→14:32)
[2022-11-18] MEDS: MULTIVITAMIN TAB PO SCH (08:44)
[2022-11-18] MEDS: TICAGRELOR 90 MG TAB PO SCH (08:44)
[2022-11-18 09:09] LABS: INR 2.6 (0.9-1.1); Prothrombin Time 26.4 Seconds (9.0-12.0)
--- NOTE | 2022-11-18 09:12 | Surgery Progress Note ---
Date of Service November 18, 2022 Assessment & Plan (1) Internal carotid artery stent present: Plan: Overall doing well s/p TCAR. D/C to rehab today. Admission and Anticipated Discharge Date Admission Date: November 14, 2022 Subjective 87 yo m POD #4 after uncomplicated R TCAR procedure, seen in f/u today. Pt states still tired, but is feeling a little better. No other new complaints. Pt to be discharged to rehab later today. Review of Systems Review of Systems: All systems reviewed & are unremarkable except as noted in HPI & below Physical Exam Constitutional: WD/WN, vitals as above Neck: trachea midline Respiratory: normal respiratory effort; no respiratory distress Cardiovascular: Rate/Rhythm: regular rate and regular rhythm Skin: + incision (R supraclavicular incision C/D/I, mild ecchymosis.) L groin pressure dresssing removed. No bleeding noted. Neurologic: CN's II-XI intact bilaterally and moves all extremities Psychiatric: Orientation: alert and oriented x 3 Results & Data Vital Signs (Past 12 Hours) Vital Signs Temp Pulse Pulse Resp BP Pulse Ox O2 Del Method 11/18/22 07:11 36.4 C L 66 14 144/74 H 96 Room Air 11/17/22 22:01 36.7 C 60 16 115/68 97 Room Air
--- NOTE | 2022-11-18 09:13 | Discharge Summary ---
Date of Service November 18, 2022 Admission Exam Per Admitting Provider On exam he is awake alert and oriented x3. He is in no apparent distress. His blood pressure is 112/62 on the left and 106/64 on the right. His radials are +2 bilaterally as well as a superficial temporal arteries. He does have soft bilateral carotid bruits.His left neck incision is healed nicely. His lungs are clear to auscultation. His heart had a regular rate and rhythm with a 2/6 systolic ejection murmur. Abdominal exam is benign with no dilatation of the aorta. Femorals and pedal pulses are all +2 bilaterally. Neurologic exam was intact motor and sensory function. His lungs are clear to auscultation. His heart had a regular rate and rhythm with a 2/6 systolic ejection murmur. Abdominal exam is benign with no dilatation of the aorta. Femorals and pedal pulses are all +2 bilaterally. Neurologic exam was intact motor and sensory function. Principal Diagnosis 1. s/p R TCAR 2. R ICA stenosis Discharge Exam Constitutional WD/WN, vitals as above Neck trachea midline Respiratory normal respiratory effort; no respiratory distress Cardiovascular Rate/Rhythm: regular rate and regular rhythm Skin + incision (R supraclavicular incision C/D/I, mild ecchymosis.) Neurologic CN's II-XI intact bilaterally and moves all extremities Psychiatric Orientation: alert and oriented x 3 Discharge Data Allergies Allergy/AdvReac Type Severity Reaction Status Date / Time glycopyrrolate AdvReac Intermediate frequent, Verified 11/05/22 02:04 difficulty urinating, & dribbling Procedures Performed Operation Date: 11/14/22 08:00 Actual Procedures p Right Transcarotid Artery Revascularization, ultrasound of femoral vein(Right) - Renan Arango MD Ordered Studies 11/14/22 07:13 EV angio carotid cerv RT Routine US EV guide vascular access Routine Hospital Course (1) Internal carotid artery stent present: Overall doing well s/p TCAR. D/C to rehab today. Plan Mr. Zendejas is an elderly male who presents for a follow-up visit after undergoing a left-sided transcarotid artery revascularization procedure at [facility]. Patient overall states he is feeling well, but is still somewhat easily fatigued. He denies any new complaints of cerebrovascular insufficiency, including amaurosis, extremity weakness numbness or tingling, difficulty speaking or swallowing, facial droop, sudden onset confusion, other complaints. He is beginning to increase his activity as his body allows. Patient states he would like to proceed with the TCAR procedure on the right side as previously discussed. Allergies Allergy/AdvReac Type Severity Reaction Status Date / Time glycopyrrolate AdvReac Intermediate frequent, Verified 11/05/22 02:04 difficulty urinating, & dribbling Home Medications Medication Instructions Recorded Confirmed Type acetaminophen 500 mg tablet 1,000 mg PO BID PRN Pain 02/09/18 11/14/22 History (Acetaminophen Extra Strength) hamhyhjm-uprlknlt-oaedm acid 400 1 tab PO QAM 07/15/21 11/14/22 History mcg-vit K 20 mcg-lycop 300 mcg tablet (One-A-Day Men's Multivitamin) pantoprazole 40 mg tablet,delayed 40 mg PO QPM 08/31/22 11/14/22 History release ticagrelor 60 mg tablet (Brilinta) 60 mg PO BID 09/21/22 11/14/22 History warfarin 2 mg tablet See Rx Instructions PO UD 09/27/22 11/14/22 History carbidopa 25 mg-levodopa 100 mg 0.5 tab PO TID #90 tabs 10/28/22 11/14/22 Rx tablet aspirin 81 mg tablet,delayed 81 mg PO QAM 11/01/22 11/14/22 History release Past Med/Surg History Medical History Higgins's esophagus BPH (benign prostatic hyperplasia) Carotid artery stenosis Diaphragmatic hernia Diverticulosis Dysphagia DUE TO PARKINSONSGERD (gastroesophageal reflux disease) History of COVID-19 04/2022- CONGESTION, STEEL, FATIGUE, RESOLVEDHistory of deep vein thrombosis 10+ YRS AGO, AFTER INJURY FROM AN ACCIDENT, TREATED WITH COUMADIN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) Hx of colonic polyps Hx of gout Hyperlipidemia Hypertension Lumbar canal stenosis Monoclonal gammopathy of undetermined significance On anticoagulant therapy Parkinsons disease Prediabetes Stercoral colitis Stroke-like symptoms 08/2022- elevated bp, blurred vision, light headed; was seen and treated at [facility] Surgical History History of bilateral cataract extraction History of blepharoplasty (03/2007) LHistory of colonoscopy History of tooth extraction upper teethHx of vasectomy S/P TURP (02/2011) Status post carotid surgery Left Transcarotid Artery Revascularization 09/21/22 Family History Other No family history of bleeding disorder Denies family history of Ovarian cancer Prostate cancer Myocardial infarction Breast cancer Colorectal cancer Social History Smoking Status: Former smoker Cigarettes Per Day: QUIT WHEN HE WAS IN HIS EARLY 20'S; Second Hand Exposure: No; Do You Dip or Chew Tobacco: No; Hx Alcohol Use: Yes Alcohol type: wine Alcohol Intake Frequency: Monthly or Less Preferred Language: Macedonian Communication Ability: Unable Visual Impairment: Limited Hearing Ability: Use of Hearing Aid Travel Specialist Required: No Beliefs That Will Affect Care: None marital status: Current Living Situation: Spouse Current Living Situation Comment: son assists current occupational status: retired How many Children do You have: 1 Feels Safe at Home: Yes Safety Concerns: Feels Safe At This Time Childhood Exposure to Second-Hand Smoke: Yes (father smoked ) Diet: regular Diet Comment: regular caffeine: Yes during the past year weight has: remained stable Dental Care, Regularly: Yes Physical Activity Frequency: Daily Seatbelt Use: always Sunscreen Use: No Assistive Devices: Denture - Upper, Glasses and Hearing Aid - Bilateral Assistive Devices Comment: partial lower Total Time Total Time Spent Total Time Spent (In Minutes): 0 Discharge Plan Discharge Items Patient Disposition: Transfer Inpatient Rehab Fac Reason For Visit: Right Internal Carotid Artery Stenosis Discharge Diagnosis: 1. s/p R TCAR 2. R ICA stenosis Activity: Per Instructions section Non-emergency contact: Primary Care Provider and Surgeon Call non-emergency contact if: you have any medication questions, your pain is not controlled, your pain is concerning for you, you have a fever, your wound has increased redness and your wound has increased drainage Follow-up/Referrals: Elli Chung DO [Primary Care Provider] - (Follow up with your PCP within 2 weeks.) Renan Arango MD [Physician] - (Follow up with Dr Arango or Luzmaria Martin PA-C, in 2 weeks.) Diet: Heart Healthy Addtl Attending Provider Instructions: SPECIAL CARE INSTRUCTIONS: Medications: * DO NOT STOP TAKING ASPIRIN, CLOPIDOGREL, OR STATIN MEDICATIONS WITHOUT SPEAKING TO DR ARANGO'S OFFICE. Incision Care: * You may shower, but do not rub incision. You may let the warm soapy water run over it. Be sure to dry the incision well after bathing. * Do not shave directly over the incision until it is healed. * DO NOT IMMERSE THE INCISION IN A TUB/POOL/etc. UNTIL HEALED. Restrictions: * Do not drive for at least one week or if you are still taking any narcotic pain medication. * Do not lift anything heavier than a gallon of milk for one week after going home. Possible Complications: * Numbness - It is normal to have some numbness around the incision. Numbness can extend beyond the incision to areas of the neck, ear and face. The numbness is due to bruising of nerves during the surgery and will gradually improve over a period of months. * Hoarseness/Difficulty Speaking and Swallowing - The bruising of nerves in the neck can also cause a hoarse voice, difficulty speaking or swallowing. This may improve over time, HOWEVER, if it continues for more than a few days please contact our office ([phone]). * Excessive Swelling - There will be some swelling immediately after surgery which usually resolves within one week. If you notice that the swelling is getting worse, notify your surgeon ([phone]). * Drainage/Bleeding - If there is any drainage or bleeding, it should be a very small amount (less than a teaspoon per day). If you have excessive bleeding or drainage from the incision, call your surgeon ([phone]) right away. ACTIVATION OF EMERGENCY MEDICAL SYSTEM: Call 911, immediately, if you experience any of the following: Warning Signs and Symptoms of Stroke: * Sudden numbness or weakness of the face, arm or leg, especially on one side of the body * Sudden confusion, trouble speaking or understanding * Sudden trouble seeing in one or both eyes * Sudden trouble walking, dizziness, loss of balance or coordination * Sudden severe headache with no cause Do not delay calling 911 if you experience any warning signs or symptoms of a stroke. Delay in seeking medical attention may affect what treatments can be given to you. Risk Factors for Stroke: You can reduce your chances of stroke by working with your medical provider to adopt a healthy lifestyle. Some specific ways to lower your chance of stroke are: * If you are a smoker, now is the time to stop smoking cigarettes * If you are diabetic, improve the control of your blood sugars * Avoid excessive amounts of alcohol * Control high blood pressure * Lose weight if you are overweight * Be sure to lead an active lifestyle * Eat a healthy diet low in salt, cholesterol and fat You should know about other risk factors for stroke that you are unable to control. These include: * Age 55 years or older * Male gender * Certain racial groups: , or / * Family History of Stroke, Mini stroke or Heart Attack * Sickle Cell Disease You will be receiving a call from the Vascular Surgery Nurse after you are discharged. FOLLOW UP VISIT: It is important for you to keep your follow up appointments with your medical provider. Keep any scheduled doctor appointments. Pending Studies at Discharge: No Stand-Alone Forms: [facility] Skilled Items Patient informed of condition?: Yes DNR: No Discharge Level of Care: Acute rehab Communicable Disease: No Discharge Prognosis: Improving Lines: None Urinary Catheter: No Medications and DC Order Prescriptions: New tramadol 50 mg Tablet 50 mg PO Q6 Qty: 30 0RF Continued One-A-Day Men's Multivitamin 400-20-300 mcg tablet 1 tab PO QAM aspirin 81 mg tablet,delayed release (DR/EC) 81 mg PO QAM carbidopa-levodopa 25-100 mg tablet 0.5 tab PO TID Qty: 90 1RF warfarin 2 mg tablet See Rx Instructions PO UD Rx Instructions: 4mg q Th, 2mg x 6 days per [facility] orally use as directed; acetaminophen [Acetaminophen Extra Strength] 500 mg Tablet 1,000 mg PO BID PRN (Reason: Pain) pantoprazole 40 mg tablet,delayed release (DR/EC) 40 mg PO QPM Brilinta 60 mg Tablet 60 mg PO BID Discharge Orders: Discharge Order (Routine); Ordered 11/18/22 Ordered By: Luzmaria Martin Admission Data Admit Date/Time: 11/14/22 07:36 Attending Provider: Renan Arango Admit Provider: Renan Arango Primary Care Provider: Elli Chung Other Providers: [facility]
== END 2022-11-18 16:03 | DRG 36 ==
LOC: ASU 06:12 → 1E 07:36 → 3N 11-15 20:46
PROC: EV.TCAR (2022-11-14 08:00)

== ENCOUNTER 2024-01-06 20:00 | Inpatient (IN) ==
--- OUTSIDE RECORDS SUMMARY | 2024-01-06 20:08 | External Medical Summary | Continuity of Care Document ---
Author Name Unknown Organization [place] [address] [facility] Address [address] [place] [address] [phone] Care Team Providers Care Seo Associate Name Role Phone Elli Chung Primary Care Physician [phone] Encounter [facility] [id number] Date(s): 12/21/23 - 12/21/[address], [address] [place] [address] [phone] Discharge Disposition: Home or Self Care Attending Physician: GODFREY Martin Lynn Referring Physician: GODFREY Martin Lynn Allergies, Adverse Reactions, Alerts Substance Criticality Severity Reaction Reaction Severity Status clopidogrel failed therapeu tic treatment Active Medications acetaminophen 500 mg oral tablet Start: 05/05/15 2:33:00 PM EST, 2 tab, PO, q6h, PRN: as needed for pain Start Date: 05/05/15 Status: Ordered aspirin 81 mg oral delayed release tablet Start: 11/07/17 3:14:00 PM EDT, 1 tab, PO, Daily Start Date: 11/07/17 Status: Ordered atorvastatin 40 mg oral tablet Start: 11/07/17 3:14:00 PM EDT, 1 tab, PO, Daily Start Date: 11/07/17 Status: Ordered Brilinta (ticagrelor) 90 mg oral tablet Start: 05/09/23 12:53:00 PM EST, 1 tab, PO, bid, Disp# 180 tab, Refills: 3, Pharmacy: [facility]/pharmacy #[id number] Start Date: 05/09/23 Status: Ordered carbidopa-levodopa 25 mg-100 mg oral tablet TAKE 1/2 TABLET BY MOUTH THREE TIMES A DY Start Date: 09/12/22 Status: Ordered cyanocobalamin 1000 mcg oral tablet Start: 11/02/20 2:44:00 PM EDT, 1 tab, PO, Daily Start Date: 11/02/20 Status: Ordered Jantoven 2.5 mg oral tablet Start: 05/05/15 2:35:00 PM EST, 1 tab, PO, Daily Start Date: 05/05/15 Status: Ordered MiraLax oral powder for reconstitution Start: 05/05/15 2:34:00 PM EST, 17 g =, PO, Daily Start Date: 05/05/15 Status: Ordered multivitamin Start: 12/08/22 12:26:00 PM EDT, 1 tab, PO, q48h Start Date: 12/08/22 Status: Ordered pantoprazole 40 mg oral delayed release tablet Start: 11/02/20 2:46:00 PM EDT, 1 tab, PO, qPM Start Date: 11/02/20 Status: Ordered Vitamin D3 1000 intl units (25 mcg) oral capsule Start: 12/08/22 12:27:00 PM EDT, 1 cap, PO, q48h Start Date: 12/08/22 Status: Ordered Problem List Condition Confirmation Course Effective Dates Status Health St atus Informant Carotid stenosis, bilateral Confirmed Active Carotid stenosis Confirmed Active Presence of internal carotid stent Confirmed Active Procedures Procedure Date Related Diagnosis Body Site Status Left TCAR 09/21/22 Completed Cataract extraction and inse rtion of intraocular lens bilaterally 03/2016 Com pleted Prostatectomy 1 Completed [id number] Results Radiology Reports * Exam Date Time Procedure Performing Provider Status 12/21/23 1:27 PM VL Carotid Duplex Bilateral St job Lester R; Final Notes: (VL Carotid Duplex Bilateral) Reason For Exam: yifan VL Carotid Duplex Bilateral [facility] FINAL REPORT Name: JORDNO CLARK : 1935 Visit: [id number] Date: 21 Dec 2023 TYPE OF TEST: Cerebrovascular Duplex REASON FOR TEST H/O B/L ICA stents - 6 month follow up INTERPRETATION/FINDINGS Arterial duplex imaging of the bilateral carotid arteries was performed. 1. Patent bilateral distal common carotid artery, carotid bulb and proximal internal carotid artery stent(s), with no evidence of restenosis. 2. Unable to visualize the right vertebral artery; possibly occluded. 3. Normal, antegrade flow in the left vertebral artery. 4. Normal flow in both subclavian arteries. Retrospective Comparison: No significant change from prior exam dated 06/21/23. IMPRESSION/COMMENTS I have personally reviewed the data relevant to the interpretation of this study. TECHNOLOGIST: LENY Rodriguez,RDMS,RVT PHYSICIAN: Isaiah Keller M.D. Signed: 12/22/2023 05:02 PM Final Dictated by:MD Keller Tarik Z Dictated DT/TM:12/22/2023 5:02 Signed by:MD Keller Tarik Z Signed (Electronic Signature):12/22/2023 5:02 p Transcribed by:[place] Social History Social History Type Response Smoking Status Never smoked cigaret fermin Sex Male Sex Representation Male (finding) Patient Care team information Care Team Personnel Name: GODFREY Martin Lynn Position: Physician Records Analysis Manager Exempt - Vasc Surg Member Role: Lifetime Relationship Address: [address] [place] [address] Name: MD Sheldon, Elli Penn Position: Referring DIRECT Member Role: Primary Care Provider Address: [address] [place] [address] Care Team Related Persons Name: JESSY CLARK Name: MAYA CLARK Name: MAYA CLARK Name: SKY CLARK Name: SKY CLARK
--- OUTSIDE RECORDS SUMMARY | 2024-01-06 20:08 | External Medical Summary | Continuity of Care Document ---
Author Name Unknown Organization [place] [address] [facility] Address [address], [place] [id number] Care Team Providers Care Logistic Manager Name Role Phone Elli Chung Primary Care Physician [phone] Encounter [facility] [id number] Date(s): 12/27/23 - 12/27/[address] [facility] [address], [address] [place] [address] [phone] Encounter Diagnosis Carotid stenosis, bilateral(Discharge Diagnosis) - 12/27/23 Discharge Disposition: Home or Self Care Attending Physician: MD Alegria Eugene J Referring Physician: MD Chung Cara M Allergies, Adverse Reactions, Alerts Substance Criticality Severity Reaction Reaction Severity Status clopidogrel failed therapeu tic treatment Active Assessment and Plan Extracted from: Title:Clinical Document Author:GODFREY Martin Lynn Date:12/27/23 [facility] OUTPATIENT NOTE Name: JORDON ZENDEJAS Patient Number: [id number] : 1935 Date of Service: 12/27/2023 Chief Complaint: _Follow-up for carotid stenosis HPI: _Mr. Zendejas is an elderly male who presents to Dr. Alegria with today for a 6-month follow-up visit regarding his history of carotid stenosis and bilateral TCAR procedures which occurred about 15 months ago at [facility]. Patient overall states he is doing well. He does continue to bruise rather easily. The patient and his family do have concerns about him continuing with the Brilinta in light of his chronic warfarin use. They deny any new symptoms of cerebrovascular insufficiency including amaurosis, extremity weakness numbness tingling, difficulty speaking or swallowing, facial droop, sudden onset confusion. Carotid ultrasound performed prior to today's appointment demonstrates widely patent bilateral TCAR sites. There is no evidence of restenosis in his stents. Current Home Meds: (Last Updated 12/26 09:37) acetaminophen (acetaminophen 500 mg oral tablet) 1,000 mg PO q6h PRN: as needed for pain aspirin (aspirin 81 mg oral delayed release tablet) 81 mg PO Daily atorvastatin (atorvastatin 40 mg oral tablet) 40 mg PO Daily carbidopa-levodopa (carbidopa-levodopa 25 mg-100 mg oral tablet) TAKE 1/2 TABLET BY MOUTH THREE TIMES A DY cholecalciferol (Vitamin D3 1000 intl units (25 mcg) oral capsule) 25 mcg PO q48h cyanocobalamin (cyanocobalamin 1000 mcg oral tablet) 1,000 mcg PO Daily multivitamin 1 tab PO q48h pantoprazole (pantoprazole 40 mg oral delayed release tablet) 40 mg PO qPM polyethylene glycol 3350 (MiraLax oral powder for reconstitution) 17 g PO Daily ticagrelor (Brilinta (ticagrelor) 90 mg oral tablet) 90 mg PO bid warfarin (Jantoven 2.5 mg oral tablet) 2.5 mg PO Daily Allergies and Sensitivities: clopidogrel(failed therapeutic treatment) Past Medical History: Problems: Presence of internal carotid stent Carotid stenosis, bilateral Carotid stenosis OBJECTIVE Vitals: Last Updated 12/27/23 09:41 Date Temp BP Location Pulse RR SpO2 Pain 12/27/23 142/68 Right Arm 0 12/27/23 148/70 Left Arm 67 98 09/12/22 0 Vital Signs are the last 3 documented. No Orthostatic Data Available Height and Weight: Last Updated 11/07/17 15:15 Date BMI Wt(kg) Wt(lb) Method Ht(cm) (ft-in) Method 11/07/17 84.1 185 Standing Scale 11/03/15 26.67 84.3 185 177.8 5-10 05/05/15 84.6 186 Heights and Weights are the last 3 documented. Physical Exam Constitutional: In general patient is a healthy for age appearing well-nourished well-developed elderly male in no distress. He is somewhat hard of hearing and has his hearing aids in place. His bilateral supraclavicular incisions are well- healed. His carotids demonstrate a faint bruit. His heart is irregular. His abdomen is soft and nontender with no active bowel sounds his femoral pulses are +3 lower extremities a pulses are +2. He has brisk capillary refill and no sign of distal ischemia. ASSESSMENT: _ PLAN: _ 1 ) _bilateral carotid stenosis, history of TCAR bilaterally Patient is now 15 months status post his second TCAR procedure. His ultrasound demonstrates the stents to be widely patent. Now that he is over 1 year status post TCAR procedures, the Brilinta is no longer required for stent patency. Patient should continue on his atorvastatin, 81 mg aspirin, and his warfarin as directed by his catalogue illustrator/PCP. We will continue to see the patient annually with new carotid ultrasounds. Patient is agreeable to this plan. His family was also present and are in agreement. They will call with any other questions. Thank you for letting us participate in the care of this patient. I have personally spent_28__ minutes performing [id number] and vms-dhmz-[id number]-face activities on this date of service.Time does not include separately reported services. Activities Include: x__ review of the medical record _x_ obtaining a history _x_ physical exam/evaluation __ review labs _x_ review radiology reports _x_ counseling/educating patient/family/caregiver __ discussion/referral to other healthcare professional _x_ documenting care in the medical record __ independent interpretation of results _x_ communication of results to patient/family/caregiver _x_ coordination of care Medications acetaminophen 500 mg oral tablet Start: [...] bid, Disp# 180 tab, Refills: 3, Pharmacy: [facility]/pharmacy #[id number] Start Date: 05/09/23 Status: Ordered carbidopa-levodopa 25 [...] PO, q48h Start Date: 12/08/22 Status: Ordered Mental Status 12/27/23 Barriers to Learning one year None evide nt Mandatory Health Literacy Documentation Yes Health Literacy Communication Barriers N ever Primary Language Estonian Problem List Condition Confirmation Course Effective Dates Status Health St atus Informant Carotid stenosis, bilateral Confirmed Active Carotid stenosis Confirmed Active Presence of internal carotid stent Confirmed Active Diagnosis Diagnosis Type Effective Dates Health Status Cl inical Service Informant Carotid stenosis, bilateral Discharge Diagnosis 12/27/23 Procedures Procedure Date Related Diagnosis Body Site Status Left TCAR 09/21/22 Completed Cataract extraction and inse rtion of intraocular lens bilaterally 03/2016 Com pleted Prostatectomy 1 Completed 57079 Vital Signs Most recent to oldest [Reference Range]: 1 2 Heart Rate 67 bpm (12/27/23 9:34 AM) Blood Pressure 142/68mmHg (12/27/23 9:41 AM) 148/70mmHg (12/27/23 9:34 AM) Cuff Pulse Pressure 74 mmHg (12/27/23 9:41 AM) 78 mmHg (12/27/23 9:34 AM) BP Location # 1 Right Arm (12/27/23 9:41 AM) Left Arm (12/27/23 9:34 AM) Social History Social History Type Response Smoking Status Never smoked cigaret fermin Sex Male Sex Representation Male (finding) [facility] Outpt Note * GODFREY Martin, Luzmaria: PERFORM Event Display: [facility] Outpt Note Authored Date: [id number] [facility] OUTPATIENT NOTE Name: JORDON ZENDEJAS Patient Number: [id number] : 1935 Date of Service: 12/27/2023 Chief Complaint: _Follow-up for carotid stenosis HPI: _Mr. Zendejas is an elderly male who presents to Dr. Alegria with today for a 6-month follow-up visit regarding his history of carotid stenosis and bilateral TCAR procedures which occurred about 15 months ago at [facility]. Patient overall states he is doing well. He does continue to bruise rather easily. The patient and his family do have concerns about him continuing with theBrilinta in light of his chronic warfarin use. They deny any new symptoms of cerebrovascular insufficiency including amaurosis, extremity weakness numbness tingling, difficulty speaking or swallowing, facial droop, sudden onset confusion. Carotid ultrasound performed prior to today's appointment demonstrates widely patent bilateral TCARsites. There is no evidence of restenosis in his stents. Current Home Meds: (Last Updated 12/26 09:37) acetaminophen (acetaminophen 500 mg oral tablet) 1,000 mg PO q6h PRN: as needed for pain aspirin (aspirin 81 mg oral delayed release tablet) 81 mg PO Daily atorvastatin (atorvastatin 40 mg oral tablet) 40 mg PO Daily carbidopa-levodopa (carbidopa-levodopa 25 mg-100 mg oral tablet) TAKE 1/2 TABLET BY MOUTH THREE TIMES A DY cholecalciferol (Vitamin D3 1000 intl units (25 mcg) oral capsule) 25 mcg PO q48h cyanocobalamin (cyanocobalamin 1000 mcg oral tablet) 1,000 mcg PO Daily multivitamin 1 tab PO q48h pantoprazole (pantoprazole 40 mg oral delayed release tablet) 40 mg PO qPM polyethylene glycol 3350 (MiraLax oral powder for reconstitution) 17 g PO Daily ticagrelor (Brilinta (ticagrelor) 90 mg oral tablet) 90 mg PO bid warfarin (Jantoven 2.5 mg oral tablet) 2.5 mg PO Daily Allergies and Sensitivities: clopidogrel(failed therapeutic treatment) Past Medical History: Problems: Presence of internal carotid stent Carotid stenosis, bilateral Carotid stenosis OBJECTIVE Vitals: Last Updated 12/27/23 09:41 Date Temp BP Location Pulse RR SpO2 Pain 12/27/23 142/68 Right Arm 0 12/27/23 148/70 Left Arm 67 98 09/12/22 0 Vital Signs are the last 3 documented. No Orthostatic Data Available Height and Weight: Last Updated 11/07/17 15:15 Date BMI Wt(kg) Wt(lb) Method Ht(cm) (ft-in) Method 11/07/17 84.1 185 Standing Scale 11/03/15 26.67 84.3 185 177.8 5-10 05/05/15 84.6 186 Heights and Weights are the last 3 documented. Physical Exam Constitutional: In general patient is a healthy for age appearing well-nourished well-developed elderly male in no distress. He is somewhat hard of hearing and has his hearing aids in place. His bilateral supraclavicular incisions are well- healed. His carotids demonstrate a faint bruit. His heart is irregular. His abdomen is soft and nontender with no active bowel sounds his femoral pulses are +3lower extremities a pulses are +2. He has brisk capillary refill and no sign of distal ischemia. ASSESSMENT: _ PLAN: _ 1 ) _bilateral carotid stenosis, history of TCAR bilaterally Patient is now 15 months status post his second TCAR procedure. His ultrasound demonstrates the stents to be widely patent. Now that he is over 1 year status post TCAR procedures, the Brilinta is no longer required for stent patency. Patient should continue on his atorvastatin, 81 mg aspirin, and his warfarin as directed by his catalogue illustrator/PCP. We will continue to see the patient annually with new carotid ultrasounds. Patient is agreeable to this plan. His family was also present and are in agreement. They will call with any other questions. Thank you for letting us participate in the care of this patient. I have personally spent_28__ minutes performing [id number] and oti-ohag-cm-face activities on this date of service.Time does not include separately reported services. Activities Include: x__ review of the medical record _x_ obtaining a history _x_ physical exam/evaluation __ review labs _x_ review radiology reports _x_ counseling/educating patient/family/caregiver __ discussion/referral to other healthcare professional _x_ documenting care in the medical record __ independent interpretation of results _x_ communication of results to patient/family/caregiver _x_ coordination of care Electronic Signature on File CC: Elli Chung DO [address] [place] [id number] * Electronically Reviewed/Signed by: Luzmaria Martin PA-C Author Signature Dt/Tm:12/27/2023 01:42 PM [facility] [place] [address] Patient Care team information Care Team Personnel Name: GODFREY Martin, Luzmaria Position: Physician Industrial Hygiene Manager Exempt - Vasc Surg Member Role: Lifetime Relationship Address: [address] [place] [id number] [place] Name: MD Sheldon, Elli Penn Position: Referring DIRECT Member Role: Primary Care Provider Address: [address] [place] [address] [place] Care Team Related Persons Name: JESSY ZENDEJAS Name: MAYA ZENDEJAS Name: MAYA ZENDEJAS Name: SKY ZENDEJAS Name: SKY ZENDEJAS
[2024-01-06 20:29] LABS: iSTAT Creatinine 1.3 mg/dl (0.6-1.3); iSTAT Hemoglobin 11.6 g/dl (14.0-18.0); iSTAT Ionized Calcium 1.13 mmol/l (1.12-1.32)
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
[2024-01-06 20:39] LABS: Basophils # (auto) 0.05 K/uL (0.00-0.20); Basophils % (auto) 0.8 %; Eosinophils # (auto) 0.11 K/uL (0.00-0.50); Eosinophils % (auto) 1.7 %; Hematocrit (blood only) 32.7 % (42.0-52.0); Immature Granulocytes # (auto) 0.02 K/uL (0.01-0.20); Immature Granulocytes % (auto) 0.3 %; Lymphocytes # (auto) 2.44 K/uL (1.20-3.40); Lymphocytes % (auto) 38.2 %; Mean Corpuscular Hgb Conc 33.6 g/dL (32.0-36.0); Mean Corpuscular Volume 92.1 fL (80.0-100.0); Mean Platelet Volume 9.7 fL (9.4-12.4); Monocytes # (auto) 0.75 K/uL (0.11-0.59); Monocytes % (auto) 11.8 %; Neutrophils # (auto) 3.01 K/uL (1.40-6.50); Neutrophils % (auto) 47.2 %; Platelet Count 167 K/uL (130-400); RDW Standard Deviation 47.1 fL (36.4-46.3); Red Blood Count 3.55 M/uL (4.70-6.10); White Blood Count 6.38 K/ul (4.8-10.8)
[2024-01-06 20:52] LABS: INR 1.5 (0.9-1.1); Prothrombin Time 15.8 Seconds (9.0-12.0)
[2024-01-06 20:54] LABS: Albumin Level 4.2 gm/dl (3.4-5.0); BUN Creatinine Ratio 20.6 (10-20); Bilirubin Direct 0.1 mg/dl (0-0.2); Bilirubin,Total 0.5 mg/dl (0.2-1.0); Calcium 9.6 mg/dl (8.6-10.3); Creatinine Clr Calc Pharmacy 37.9 ml/min; Est GFR (African American) 58.6 ml/min; Est GFR (Non-African American) 50.6 ml/min; Magnesium 1.8 mg/dl (1.7-2.4); Potassium 3.9 mmol/L (3.5-5.1); Total Protein 7.7 gm/dl (6.0-8.3)
[2024-01-06 21:18] LABS: Appearance Urine Clear (Clear); Bilirubin Urine Negative (Negative); Blood Urine Negative (Negative); Color Urine Yellow; Glucose Urine UA Trace (Negative); Ketones Urine Negative (Negative); Leukocyte Esterase Urine Negative (Negative); Nitrite Urine Negative (Negative); Protein Urine Negative (Negative); Urobilinogen Urine Negative (Negative); pH Urine 6.5 (4.5-7.5)
[2024-01-06] MEDS: ACETAMINOPHEN 1,000 MG/100 ML VIAL IV STA (22:11)
--- NOTE | 2024-01-06 23:00 | CT Scan Report ---
Exam(s): CT HEAD Without Contrast EXAM: CT Head Without Intravenous Contrast CLINICAL HISTORY: Reason for exam: fall, coumadin. TECHNIQUE: Axial computed tomography images of the head/brain without intravenous contrast. Automated exposure control was utilized for the study. A dose lowering technique was utilized adhering to the principles of ALARA. COMPARISON: No relevant prior studies available. FINDINGS: No acute intracranial hemorrhage. No midline shift or mass effect. The territorial bateman-white matter differentiation is maintained throughout. Age-related cerebral volume loss. Periventricular and subcortical white matter hypoattenuation, consistent with chronic microangiopathy. The visualized orbits appear grossly unremarkable. The calvarium is intact. The visualized paranasal sinuses and mastoid air cells are grossly clear. IMPRESSION: No acute intracranial hemorrhage, midline shift, or mass effect. Electronically signed by: Clint Sinclair MD 01/06/24 22:58 PM
[2024-01-06] MEDS: LACTATED RINGER'S 1,000 ML IV SCH (23:04)
--- NOTE | 2024-01-06 23:05 | History & Physical Report ---
Date of Service January 06, 2024 Assessment & Plan (1) Closed left hip fracture: (2) Ambulatory dysfunction: (3) Memory impairment: (4) Esophageal dysmotility: (5) Hypertension: (6) History of deep vein thrombosis: (7) Monoclonal gammopathy of undetermined significance: (8) Parkinsons disease: (9) Hyperlipidemia: (10) Dysphonia: (11) Status post carotid surgery: (12) Status post carotid surgery: (13) Stroke-like symptoms: Plan Closed left hip fracture- Status post mechanical fall, tripping over a rug NPO after midnight Hold aspirin Family reports patient had Brilinta stopped 2 weeks ago, on a planned basis, which was 1 year after his CVA Patient is intolerant of any narcotic medications Acetaminophen 1 g IV every 8 hours as needed for mild pain or fever LR at 80 mL/h Consult orthopedic surgery Dr. Sandoval. History of DVT- Patient had been resuming warfarin, and was to have a follow-up INR with the anticoagulation clinic this week Coumadin will be held, INR presently 1.5, and if necessary we will reverse in the a.m. History of CVA- Status post right CEA and left CEA Temporarily hold aspirin as noted Parkinson's- Continue carbidopa levodopa Hyperlipidemia- Resume atorvastatin post surgery GERD- Change pantoprazole from oral to IV History of Present Illness Chief Complaint: The patient presents to the emergency department due to a painful left hip, that occurred after tripping and falling on a carpet, and landing on his left hip, developing immediate pain and decreased ability to ambulate Primary Care Provider: Elli Chung DO The patient is an 88-year-old male with a past medical history including memory impairment, lumbar radiculopathy, gout, LPRD, esophageal dysmotility, parkinsonism, hypertension, internal carotid artery stent, history of DVT, MGUS, BPH with LUTS, Higgins's esophagus and history of squamous cell carcinoma. The patient reports he was walking along, tripped over a carpet, landed on his left hip, and developed immediate pain and decreased ability to bear weight and ambulate. X-rays in the emergency department revealed a closed left hip fracture. Allergies Allergy/AdvReac Type Severity Reaction Status Date / Time Opioids - Morphine Analogues AdvReac Severe Confusion/Agitation Verified 12/08 05/31 23:38 with ALL NARCOTICS Opioids-Meperidine and AdvReac Severe Confusion/Agitation Verified 01/06/24 23:38 Related with ALL NARCOTICS Opioids-Methadone and Related AdvReac Severe Confusion/Agitation Verified 01/06/24 23:38 with ALL NARCOTICS glycopyrrolate AdvReac Intermediate frequent, Verified 01/06/24 20:49 difficulty urinating, & dribbling tramadol AdvReac Intermediate Confusion Verified 01/06/24 20:49 Home Medications Medication Instructions Recorded Confirmed Type acetaminophen 500 mg tablet 1,000 mg PO BID PRN Pain 02/09/18 01/06/24 History (Acetaminophen Extra Strength) smexdjxm-qqtkherk-ytxol acid 400 1 tab PO Q OTHER DAY 07/15/21 01/06/24 History mcg-vit K 20 mcg-lycop 300 mcg tablet (One-A-Day Men's Multivitamin) aspirin 81 mg tablet,delayed 81 mg PO QAM 11/01/22 01/06/24 History release cholecalciferol (vitamin D3) 50 50 mcg PO Q OTHER DAY 12/08/22 01/06/24 History mcg (2,000 unit) capsule carbidopa 25 mg-levodopa 100 mg 0.5 tab PO TID #90 tabs 07/19/23 01/06/24 Rx tablet atorvastatin 40 mg tablet 40 mg PO DAILY #90 tabs 10/31/23 01/06/24 Rx warfarin 2 mg tablet 2 mg PO QAM 12/19/23 01/06/24 History clotrimazole-betamethasone 1 1 applic topical BID PRN Skin 01/06/24 01/06/24 History %-0.05 % topical cream Irritation pantoprazole 40 mg tablet,delayed 40 mg PO HS 01/06/24 01/06/24 History release Past Med/Surg History Problem List (Updated 01/07/24 @ 02:40 by Nilson Lewis MD) Status post carotid surgery (09/21/22) Left Transcarotid Artery Revascularization 09/21/22 Status post carotid surgery (11/14/22) Right Transcarotid Artery Revascularization, ultrasound of femoral vein(Right) Stroke-like symptoms 08/2022- elevated bp, blurred vision, light headed; was seen and treated at [facility] Closed left hip fracture Ambulatory dysfunction Dizziness Memory impairment Lumbar radiculopathy (Chronic) Vitamin D deficiency Tubular adenoma of colon Gout Anemia LPRD (laryngopharyngeal reflux disease) Dysphagia Dysphonia Esophageal dysmotility Chronic constipation Urinary incontinence Parkinsonism Sialorrhea Hypertension (Acute) Arterial hypotension Internal carotid artery stent present History of deep vein thrombosis 10+ YRS AGO, AFTER INJURY FROM AN ACCIDENT, TREATED WITH COUMADIN Monoclonal gammopathy of undetermined significance Parkinsons disease On anticoagulant therapy GERD (gastroesophageal reflux disease) BPH (benign prostatic hyperplasia) Lumbar canal stenosis (Chronic) Hyperlipidemia Diverticulosis Diaphragmatic hernia Carotid artery stenosis Higgins's esophagus Prediabetes 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) Medical History Hx of gout Stercoral colitis Hx of colonic polyps Dysphagia History of COVID-19 Stroke-like symptoms Surgical History Status post carotid surgery (11/14/22) Status post carotid surgery (09/21/22) S/P TURP (02/2011) Hx of vasectomy History of colonoscopy History of tooth extraction History of blepharoplasty (03/2007) History of bilateral cataract extraction Family History Other No family history of bleeding disorder Denies family history of Ovarian cancer Prostate cancer Myocardial infarction Breast cancer Colorectal cancer Social History Smoking Status: Former smoker Cigarettes Per Day: QUIT WHEN HE WAS IN HIS EARLY 20'S; Second Hand Exposure: No; Do You Dip or Chew Tobacco: No; Hx Alcohol Use: Yes Alcohol type: wine Alcohol Intake Frequency: Monthly or Less Hx Substance Use: No Preferred Language: Ecuadorean Communication Ability: Effective Visual Impairment: Limited Hearing Ability: Use of Hearing Aid Regional Administrative Assistant Required: No Beliefs That Will Affect Care: None marital status: Current Living Situation: Spouse Current Living Situation Comment: son assists current occupational status: retired How many Children do You have: 1 Other Information That Helps Us Care for You: No Feels Safe at Home: Yes Safety Concerns: Feels Safe At This Time Childhood Exposure to Second-Hand Smoke: Yes (father smoked ) Diet: regular Diet Comment: regular caffeine: Yes during the past year weight has: remained stable Dental Care, Regularly: Yes Physical Activity Frequency: Daily Seatbelt Use: always Sunscreen Use: No Assistive Devices: Cane, Denture - Upper and Glasses Review of Systems Review of Systems: The patient denies chest pain, palpitations, shortness of breath, dyspnea on exertion, cough, lower extremity swelling, sore throat, fevers, chills, sweats, nausea, vomiting, diarrhea , constipation, abdominal pain, pelvic pain, blood in urine or stool, dysuria, urinary frequency or urgency, lightheadedness, dizziness, headache, memory loss, loss of consciousness, rash, abnormal bruising or bleeding, focal or generalized weakness, numbness or tingling in arms or right leg, generalized arthralgias or myalgias, back or neck pain, or night sweats. The review of systems is otherwise negative other than for that already noted above, and at least 10 systems have been reviewed. Physical Exam Physical Exam: The patient is awake, alert and oriented 3, well developed and well nourished, normocephalic and atraumatic, lying in bed and in no acute distress. HEENT--PERRL, EOMI, mucous membranes and oropharynx mildly dry. Neck--supple. No JVD. No bruits. Thyroid normal, trachea midline, no adenopathy. Heart--normal S1 and S2. No murmurs, rubs or gallops. Lungs--clear bilaterally, no respiratory distress, no accessory muscle use. Abdomen--normal bowel sounds and soft. Nontender. Nondistended Extremities--no cyanosis or clubbing. No edema. Dermatologic--normal skin turgor, normal color, no abnormal lymph nodes, no rash. Neurologic--cranial nerves II through XII grossly intact. Rheumatologic--decreased range of motion left hip and leg due to pain Psychiatric--normal affect. Results & Data Results & Data Vital Signs (Past 12 Hours) Vital Signs Temp Pulse Pulse Resp BP BP Pulse Ox 01/06/24 22:32 77 19 166/70 H 95 01/06/24 22:30 36.5 C 78 18 166/70 H 96 01/06/24 20:17 84 01/06/24 20:10 36.6 C 84 14 189/79 H 95 O2 Del Method 01/06/24 22:32 Room Air 01/06/24 22:30 Room Air 01/06/24 20:17 01/06/24 20:10 Room Air Laboratory Results Laboratory Results WBC 6.38 K/ul (4.8-10.8) 01/06/24 20:14 RBC 3.55 M/uL (4.70-6.10) L 01/06/24 20:14 Hgb 11.0 g/dl (14.0-18.0) L 01/06/24 20:14 POC Hgb 11.6 g/dl (14.0-18.0) L 01/06/24 20:17 Hct 32.7 % (42.0-52.0) L 01/06/24 20:14 POC Hct 34 % (42-52) L 01/06/24 20:17 MCV 92.1 fL (80.0-100.0) 01/06/24 20:14 MCH 31.0 pg (25.0-34.0) 01/06/24 20:14 MCHC 33.6 g/dL (32.0-36.0) 01/06/24 20:14 RDW Std Deviation 47.1 fL (36.4-46.3) H 01/06/24 20:14 RDW Coeff of [place] 14.0 % (11.5-14.5) 01/06/24 20:14 Plt Count 167 K/uL (130-400) 01/06/24 20:14 MPV 9.7 fL (9.4-12.4) 01/06/24 20:14 Immature Gran % (Auto) 0.3 % 01/06/24 20:14 Neut % (Auto) 47.2 % 01/06/24 20:14 Lymph % (Auto) 38.2 % 01/06/24 20:14 [place] % (Auto) 11.8 % 01/06/24 20:14 Eos % (Auto) 1.7 % 01/06/24 20:14 Baso % (Auto) 0.8 % 01/06/24 20:14 Neut # (Auto) 3.01 K/uL (1.40-6.50) 01/06/24 20:14 Lymph # (Auto) 2.44 K/uL (1.20-3.40) 01/06/24 20:14 [place] # (Auto) 0.75 K/uL (0.11-0.59) H 01/06/24 20:14 Eos # (Auto) 0.11 K/uL (0.00-0.50) 01/06/24 20:14 Baso # (Auto) 0.05 K/uL (0.00-0.20) 01/06/24 20:14 Immature Gran # (Auto) 0.02 K/uL (0.01-0.20) 01/06/24 20:14 PT 15.8 Seconds (9.0-12.0) H 01/06/24 20:14 INR 1.5 (0.9-1.1) H 01/06/24 20:14 POC Sodium 137 mmol/L (135-144) 01/06/24 20:17 Sodium 135 mmol/L (136-145) L 01/06/24 20:14 POC Potassium 4.0 mmol/L (3.3-5.0) 01/06/24 20:17 Potassium 3.9 mmol/L (3.5-5.1) 01/06/24 20:14 POC Chloride 106 mmol/L (101-112) 01/06/24 20:17 Chloride 104 mmol/L (98-107) 01/06/24 20:14 Carbon Dioxide 24 mmol/L (21-32) 01/06/24 20:14 POC Total CO2 21 mmol/L (24-31) L 01/06/24 20:17 Anion Gap 7 (3-11) 01/06/24 20:14 POC Anion Gap 16.0 mmol/L (16-25) 01/06/24 20:17 POC BUN 23 mg/dl (7-18) H 01/06/24 20:17 BUN 26 mg/dl (6-23) H 01/06/24 20:14 Creatinine 1.26 mg/dl (0.6-1.4) 01/06/24 20:14 POC Creatinine 1.3 mg/dl (0.6-1.3) 01/06/24 20:17 Est Cr Clr Drug Dosing 37.9 ml/min 01/06/24 20:14 Est GFR ( Amer) 58.6 ml/min 01/06/24 20:14 Est GFR (Non-Af Amer) 50.6 ml/min 01/06/24 20:14 BUN/Creatinine Ratio 20.6 (10-20) H 01/06/24 20:14 Glucose 170 mg/dl (70-99(Fasting)) H 01/06/24 20:14 POC Glucose 163 mg/dl (70-99) H 01/06/24 20:16 POC Glucose (other) 170 mg/dl (70-99) H 01/06/24 20:17 Calcium 9.6 mg/dl (8.6-10.3) 01/06/24 20:14 POC Ioniz Calcium Rosie 1.13 mmol/l (1.12-1.32) 01/06/24 20:17 Magnesium 1.8 mg/dl (1.7-2.4) 01/06/24 20:14 Total Bilirubin 0.5 mg/dl (0.2-1.0) 01/06/24 20:14 Direct Bilirubin 0.1 mg/dl (0-0.2) 01/06/24 20:14 AST 29 U/L (13-39) 01/06/24 20:14 ALT 5 U/L (7-52) L 01/06/24 20:14 Alkaline Phosphatase 89 U/L (34-104) 01/06/24 20:14 Troponin I High Sens 13.0 pg/ml (0-20) 01/06/24 20:14 Total Protein 7.7 gm/dl (6.0-8.3) 01/06/24 20:14 Albumin 4.2 gm/dl (3.4-5.0) 01/06/24 20:14 Lipase 22 U/L (11-82) 01/06/24 20:14 Urine Color Yellow 01/06/24 20:54 Urine Appearance Clear (Clear) 01/06/24 20:54 Urine pH 6.5 (4.5-7.5) 01/06/24 20:54 Ur Specific [place] 1.010 (1.000-1.030) 01/06/24 20:54 Urine Protein Negative (Negative) 01/06/24 20:54 Urine Glucose (UA) Trace (Negative) H 01/06/24 20:54 Urine Ketones Negative (Negative) 01/06/24 20:54 Urine Blood Negative (Negative) 01/06/24 20:54 Urine Nitrite Negative (Negative) 01/06/24 20:54 Urine Bilirubin Negative (Negative) 01/06/24 20:54 Urine Urobilinogen Negative (Negative) 01/06/24 20:54 Ur Leukocyte Esterase Negative (Negative) 01/06/24 20:[address] 01/06/24 20:22 Exam(s): CT HEAD Without Contrast EXAM: CT Head Without Intravenous Contrast CLINICAL HISTORY: Reason for exam: fall, coumadin. TECHNIQUE: Axial computed tomography images of the head/brain without intravenous contrast. Automated exposure control was utilized for the study. A dose lowering technique was utilized adhering to the principles of ALARA. COMPARISON: No relevant prior studies available. FINDINGS: No acute intracranial hemorrhage. No midline shift or mass effect. The territorial bateman-white matter differentiation is maintained throughout. Age-related cerebral volume loss. Periventricular and subcortical white matter hypoattenuation, consistent with chronic microangiopathy. The visualized orbits appear grossly unremarkable. The calvarium is intact. The visualized paranasal sinuses and mastoid air cells are grossly clear. IMPRESSION: No acute intracranial hemorrhage, midline shift, or mass effect. Electronically signed by: Clint Sinclair MD 01/06/24 22:58 PM Code Status & VTE Plan Code Status DNR/DNI VTE Prophylaxis Plan VTE Prophylaxis will be ordered: Yes PG Care Time/CCT Total # of Minutes Spent Total Time Spent with Patient: Total time spent is greater than 50% in coordination of care (as documented) at patient's floor/unit and/or counseling patient: Coding Level of Care Code 39993 INT INP/OBS CARE 3/75MIN Diagnoses Closed left hip fracture S72.002A Ambulatory dysfunction R26.2 Memory impairment R41.3 Esophageal dysmotility K22.4 Hypertension I10 History of deep vein thrombosis Z86.718 Monoclonal gammopathy of undetermined significance D47.2 Parkinsons disease G20 Hyperlipidemia E78.5 Dysphonia R49.0 Status post carotid surgery Z98.890 Stroke-like symptoms R29.90
[2024-01-06] MEDS: CARBIDOPA/LEVODOPA 25/100MG TAB PO STA (23:26)
[2024-01-06] MEDS: PANTOprazole 40 MG in SYRINGE 0 ML IV STA (23:26)
[2024-01-07] MEDS ORDERED: ONDANSETRON INJ 2 MG/ML 2 ML VIAL IV PRN ×2 (00:13→10:20)
[2024-01-07] MEDS ORDERED: MAGNESIUM HYDROXIDE SUSP 30 ML UDC PO PRN (00:13)
[2024-01-07] MEDS ORDERED: bisacodyL 10 MG SUPP PR PRN (00:13)
[2024-01-07] MEDS ORDERED: MULTIVIT MIN FOLIC VIT K LYCOP PO SCH (00:13)
[2024-01-07] MEDS ORDERED: NALOXONE HCL 0.4 MG/1 ML VIAL/CARP IV PRN (00:13)
[2024-01-07] MEDS: MAGNESIUM SULFATE / D5W 1 GM/100 ML BAG IV STA (00:38)
[2024-01-07 06:55] LABS: Basophils # (auto) 0.03 K/uL (0.00-0.20); Basophils % (auto) 0.4 %; Eosinophils # (auto) 0.06 K/uL (0.00-0.50); Eosinophils % (auto) 0.8 %; Hematocrit (blood only) 30.1 % (42.0-52.0); Hemoglobin 10.1 g/dl (14.0-18.0); Immature Granulocytes # (auto) 0.03 K/uL (0.01-0.20); Immature Granulocytes % (auto) 0.4 %; Lymphocytes # (auto) 1.34 K/uL (1.20-3.40); Lymphocytes % (auto) 17.4 %; Mean Corpuscular Hemoglobin 30.4 pg (25.0-34.0); Mean Corpuscular Hgb Conc 33.6 g/dL (32.0-36.0); Mean Corpuscular Volume 90.7 fL (80.0-100.0); Mean Platelet Volume 9.4 fL (9.4-12.4); Monocytes # (auto) 0.84 K/uL (0.11-0.59); Monocytes % (auto) 10.9 %; Neutrophils % (auto) 70.1 %; Platelet Count 158 K/uL (130-400); RDW Coefficient of Variation 13.5 % (11.5-14.5); Red Blood Count 3.32 M/uL (4.70-6.10)
[2024-01-07] MEDS ORDERED: ACETAMINOPHEN 1000 MG/100 ML IV IV PRN (07:00)
[2024-01-07 07:24] LABS: Albumin Level 3.7 gm/dl (3.4-5.0); BUN Creatinine Ratio 18.9 (10-20); Calcium 9.2 mg/dl (8.6-10.3); Est GFR (African American) 72.3 ml/min; Est GFR (Non-African American) 62.4 ml/min; Phosphorus 3.2 mg/dl (2.5-4.9); Potassium 4.1 mmol/L (3.5-5.1)
[2024-01-07 07:35] LABS: INR 1.6 (0.9-1.1)
--- NOTE | 2024-01-07 07:38 | Electrocardiogram Report ---
Test Reason : Blood Pressure : */* mmHG Vent. Rate : 82 BPM Atrial Rate : 82 BPM P-R Int : 180 ms QRS Dur : 80 ms QT Int : 372 ms P-R-T Axes : 47 23 29 degrees QTcB Int : 434 ms Sinus rhythm with frequent Premature ventricular complexes Otherwise normal ECG When compared with ECG of 31-Aug-2022 17:27, Premature ventricular complexes are now Present Confirmed by Zay Alvares ([id number]) on 01/07/2024 7:37:48 AM Referred By: REFERRED SELF Confirmed By: Zay Alvares
--- NOTE | 2024-01-07 07:38 | History & Physical Report ---
Date of Service January 07, 2024 Assessment & Plan (1) Closed left hip fracture: I discussed the diagnosis and treatment options with him at bedside. I am recommending a cemented left hip hemiarthroplasty. He understands the risk, benefits, and alternatives to procedures elected proceed. Questions were ans wered at bedside. Time was spent scribing the procedure and post expectations. The decision was made for surgery. He is currently NPO. I plan to do the surgery later this morning. History of Present Illness Chief Complaint: Left femoral neck fracture. Primary Care Provider: Elli Chung DO Barber is a pleasant 88-year-old male who lives in a single-family home with his . He normally ambulates with a cane. He was taking something out to the attached garage and he tripped and fell. He had immediate left hip pain. He came to the emergency room where radiographs demonstrated a displaced left femoral neck fracture. He was admitted to the medical service. Orthopedics was consulted to evaluate and treat.. Allergies Allergy/AdvReac Type Severity Reaction Status Date / Time Opioids - Morphine Analogues AdvReac Severe Confusion/Agitation Verified 01/06/24 23:38 with ALL NARCOTICS Opioids-Meperidine and AdvReac Severe Confusion/Agitation Verified 01/06/24 23:38 Related with ALL NARCOTICS Opioids-Methadone and Related AdvReac Severe Confusion/Agitation Verified 01/06/24 23:38 with ALL NARCOTICS glycopyrrolate AdvReac Intermediate frequent, Verified 01/06/24 20:49 difficulty urinating, & dribbling tramadol AdvReac Intermediate Confusion Verified 01/06/24 20:49 Home Medications Medication Instructions Recorded Confirmed Type acetaminophen 500 mg tablet 1,000 mg PO BID PRN Pain 02/09/18 01/06/24 History (Acetaminophen Extra Strength) krfoxcnx-phqourak-rgviq acid 400 1 tab PO Q OTHER DAY 07/15/21 01/06/24 History mcg-vit K 20 mcg-lycop 300 mcg tablet (One-A-Day Men's Multivitamin) aspirin 81 mg tablet,delayed 81 mg PO QAM 11/01/22 01/06/24 History release cholecalciferol (vitamin D3) 50 50 mcg PO Q OTHER DAY 12/08/22 01/06/24 History mcg (2,000 unit) capsule carbidopa 25 mg-levodopa 100 mg 0.5 tab PO TID #90 tabs 07/19/23 01/06/24 Rx tablet atorvastatin 40 mg tablet 40 mg PO DAILY #90 tabs 10/31/23 01/06/24 Rx warfarin 2 mg tablet 2 mg PO QAM 12/19/23 01/06/24 History clotrimazole-betamethasone 1 1 applic topical BID PRN Skin 01/06/24 01/06/24 History %-0.05 % topical cream Irritation pantoprazole 40 mg tablet,delayed 40 mg PO HS 01/06/24 01/06/24 History release Past Med/Surg History Problem List Status post carotid surgery (09/21/22) Left Transcarotid Artery Revascularization 09/21/22 Status post carotid surgery (11/14/22) Right Transcarotid Artery Revascularization, ultrasound of femoral vein(Right) Stroke-like symptoms 08/2022- elevated bp, blurred vision, light headed; was seen and treated at [facility] Closed left hip fracture Ambulatory dysfunction Dizziness Memory impairment Lumbar radiculopathy (Chronic) Vitamin D deficiency Tubular adenoma of colon Gout Anemia LPRD (laryngopharyngeal reflux disease) Dysphagia Dysphonia Esophageal dysmotility Chronic constipation Urinary incontinence Parkinsonism Sialorrhea Hypertension (Acute) Arterial hypotension Internal carotid artery stent present History of deep vein thrombosis 10+ YRS AGO, AFTER INJURY FROM AN ACCIDENT, TREATED WITH COUMADIN Monoclonal gammopathy of undetermined significance Parkinsons disease On anticoagulant therapy GERD (gastroesophageal reflux disease) BPH (benign prostatic hyperplasia) Lumbar canal stenosis (Chronic) Hyperlipidemia Diverticulosis Diaphragmatic hernia Carotid artery stenosis Higgins's esophagus Prediabetes 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) Medical History Hx of gout Stercoral colitis Hx of colonic polyps Dysphagia DUE TO PARKINSONS History of COVID-19 04/2022- CONGESTION, STEEL, FATIGUE, RESOLVED Surgical History S/P TURP (02/2011) Hx of vasectomy History of colonoscopy History of tooth extraction upper teeth History of blepharoplasty (03/2007) L History of bilateral cataract extraction Family History Other No family history of bleeding disorder Denies family history of Ovarian cancer Prostate cancer Myocardial infarction Breast cancer Colorectal cancer Social History Smoking Status: Former smoker Cigarettes Per Day: QUIT WHEN HE WAS IN HIS EARLY 20'S; Second Hand Exposure: No; Do You Dip or Chew Tobacco: No; Hx Alcohol Use: Yes Alcohol type: wine Alcohol Intake Frequency: Monthly or Less Hx Substance Use: No Preferred Language: Thai Communication Ability: Effective Visual Impairment: Limited Hearing Ability: Use of Hearing Aid Supreme Court Justice Required: No Beliefs That Will Affect Care: None marital status: Current Living Situation: Spouse Current Living Situation Comment: son assists current occupational status: retired How many Children do You have: 1 Other Information That Helps Us Care for You: No Feels Safe at Home: Yes Safety Concerns: Feels Safe At This Time Childhood Exposure to Second-Hand Smoke: Yes (father smoked ) Diet: regular Diet Comment: regular caffeine: Yes during the past year weight has: remained stable Dental Care, Regularly: Yes Physical Activity Frequency: Daily Seatbelt Use: always Sunscreen Use: No Assistive Devices: Cane, Denture - Upper and Glasses Review of Systems All systems reviewed & are unremarkable except as noted in HPI & below. Physical Exam On physical examination of the left hip, the left leg is shortened and externally rotated. He has pain with logroll of his left hip.. Constitutional WD/WN, vitals as above Eyes PERRL, conjunctivae normal, anicteric sclerae ENMT external ear and nose normal, oropharynx normal Neck trachea midline, no thyromegaly Respiratory normal respiratory effort Cardiovascular RRR, no murmur, no edema Gastrointestinal (Abdomen) normal bowel sounds, soft, nontender, no hepatosplenomegaly Psychiatric A+Ox3, euthymic affect Results & Data Results & Data Laboratory Results . Diagnostic Findings X-rays of the left hip show displaced left femoral neck fracture. PG Care Time/CCT Total # of Minutes Spent Total Time Spent with Patient: Total time spent is greater than 50% in coordination of care (as documented) at patient's floor/unit and/or counseling patient: Coding Level of Care Code 78951 INT INP/OBS CARE 3/75MIN (57 - DECISION FOR SURGERY) Diagnoses Closed left hip fracture S72.002A
--- NOTE | 2024-01-07 07:40 | XRay Report ---
XR hip LT 2V w pelvis CLINICAL HISTORY: fall COMPARISON: Pelvis radiograph April 24, 2015. CT of the abdomen and pelvis November 05, 2022. FINDINGS: There is an acute impacted nondisplaced left femoral neck fracture. Proximal right femur i s intact. There are no pelvic fractures. IMPRESSION: Acute impacted nondisplaced left femoral neck fracture. ACT 112: Negative or not required by law. Electronically signed by: Maikol Dover M.D. 01/07/2024 7:37 AM
--- NOTE | 2024-01-07 07:40 | XRay Report ---
XR chest 1V portable CLINICAL HISTORY: trauma COMPARISON STUDY: Chest radiograph and chest CT November 05, 2022. FINDINGS: Lung volumes are normal. Lungs are clear. There is no pneumothorax or pleural effusion. Car diomegaly is unchanged. Mediastinal contours are normal. There is no evidence for pulmonary edema. Th ere are multiple old right-sided rib fractures. IMPRESSION: No acute cardiopulmonary findings. No change in appearance of the chest. ACT 112: Negative or not required by law. Electronically signed by: Maikol Dover M.D. 01/07/2024 7:38 AM
[2024-01-07] MEDS: ACETAMINOPHEN 1,000 MG/100 ML VIAL IV PRN (08:03)
[2024-01-07] MEDS: CARBIDOPA/LEVODOPA 25/100MG TAB PO SCH (08:05)
--- NOTE | 2024-01-07 08:05 | Hospitalist Progress Note ---
Date of Service January 07, 2024 Assessment & Plan (1) Closed left hip fracture: (2) Ambulatory dysfunction: (3) Memory impairment: (4) Esophageal dysmotility: (5) Hypertension: (6) History of deep vein thrombosis: (7) Monoclonal gammopathy of undetermined significance: (8) Parkinsons disease: (9) Hyperlipidemia: (10) Dysphonia: (11) Status post carotid surgery: (12) Stroke-like symptoms: Plan Closed left hip fracture- - 2/2 mechanical fall - s/p left hip hemiarthroplasty (01/06) - hold aspirin - Family reports patient had Brilinta stopped 2 weeks ago, on a planned basis, which was 1 year after his CVA - Patient is intolerant of any narcotic medications - Acetaminophen 1 g IV every 8 hours as needed for mild pain or fever - LR at 80 mL/h - ortho on board History of DVT- - cleared by ortho to resume warfarin tonight History of CVA- - Status post right CEA and left CEA - Temporarily hold aspirin as noted Parkinson's- - Continue carbidopa levodopa Hyperlipidemia- - Resume atorvastatin post surgery GERD- - Change pantoprazole from oral to IV Admission and Anticipated Discharge Date Admission Date: January 06, 2024 Subjective No acute events Currently c/o some low back pain Hip pain tolerable Review of Systems Review of Systems: Comprehensive ROS completed Physical Exam Physical Exam: Gen: no acute distress HEENT: NC/AT, MMM CVS: s1s2 nl, RRR Lungs: CTAB Abd: soft, NT, nl BS Ext: no edema Psych: pleasant, cooperative Results & Data Results & Data Vital Signs (Past 12 Hours) Vital Signs Temp Pulse Pulse Resp BP BP Pulse Ox 01/07/24 03:05 36.3 C L 55 L 18 144/62 H 95 01/07/24 00:46 36.4 C L 77 18 148/80 H 94 01/07/24 00:30 70 01/07/24 00:13 36.4 C L 77 16 148/80 H 94 01/07/24 00:13 01/06/24 23:58 37 C 69 18 122/50 L 94 01/06/24 23:45 95 01/06/24 23:00 37 C 75 17 122/50 L 95 01/06/24 22:32 77 19 166/70 H 95 01/06/24 22:30 36.5 C 78 18 166/70 H 96 01/06/24 20:17 84 01/06/24 20:10 36.6 C 84 14 189/79 H 95 Pulse Ox O2 Del Method O2 Del Method O2 Flow Rate 01/07/24 03:05 Room Air 01/07/24 00:46 Room Air 01/07/24 00:30 01/07/24 00:13 Room Air 01/07/24 00:13 96 Room Air 0 01/06/24 23:58 Room Air 01/06/24 23:45 Room Air 01/06/24 23:00 Room Air 01/06/24 22:32 Room Air 01/06/24 22:30 Room Air 01/06/24 20:17 01/06/24 20:10 Room Air PG Care Time/CCT Total # of Minutes Spent Total Time Spent with Patient: Total time spent is greater than 50% in coordination of care (as documented) at patient's floor/unit and/or counseling patient: Coding Level of Care Code 83279 SUB INP/OBS CARE 2/35MIN Diagnoses Closed left hip fracture S72.002A Ambulatory dysfunction R26.2 Memory impairment R41.3 Esophageal dysmotility K22.4 Hypertension I10 History of deep vein thrombosis Z86.718 Monoclonal gammopathy of undetermined significance D47.2 Parkinsons disease G20 Hyperlipidemia E78.5 Dysphonia R49.0 Status post carotid surgery Z98.890 Stroke-like symptoms R29.90
[2024-01-07] MEDS: ATORVASTATIN 40 MG TAB PO SCH (08:06)
[2024-01-07] MEDS ORDERED: LIDOCAINE 2% 2 ML VIAL/AMP(20MG/ML) INFIL ONE (09:38)
[2024-01-07] MEDS ORDERED: PROPOFOL IV EMULSION 10 MG/ML 20 ML VIAL IV ONE (09:38)
[2024-01-07] MEDS ORDERED: ONDANSETRON INJ 2 MG/ML 2 ML VIAL ONE (09:38)
[2024-01-07] MEDS ORDERED: DEXAMETHASONE SOD INJ 4 MG/ML VIAL ONE (09:38)
[2024-01-07] MEDS ORDERED: KETAMINE HCL 10MG/ML SYR ONE (09:39)
[2024-01-07] MEDS ORDERED: KETOROLAC 30 MG/ML VIAL ONE (09:39)
[2024-01-07] MEDS ORDERED: fentaNYL citrate PF 100 MCG/2 ML VIAL ONE (09:39)
[2024-01-07] MEDS ORDERED: PHENYLEPHRINE HCL 10 MG/ML VIAL ONE (09:49)
[2024-01-07] MEDS: PANTOprazole 40 MG in SYRINGE 0 ML IV SCH (09:50)
[2024-01-07] MEDS ORDERED: SODIUM CHLORIDE 0.9% PF INJ 10 ML VIAL ONE ×2 (09:51→11:31)
[2024-01-07] MEDS ORDERED: ePHEDrine sulfate 50 MG/ML AMP ONE (09:51)
[2024-01-07] MEDS ORDERED: fentaNYL citrate PF 100 MCG/2 ML VIAL IV PRN (10:20)
[2024-01-07] MEDS ORDERED: ATROPINE SULFATE 0.1 MG/ML 10ML SYR IV PRN (10:20)
[2024-01-07] MEDS ORDERED: ePHEDrine sulfate 50 MG/ML AMP IV PRN (10:20)
--- NOTE | 2024-01-07 10:20 | Anesthesiology Consultation ---
Date of Service January 07, 2024 Assessment & Plan Chart Review Chart Review: Acceptable Risk for Surgery and Patient NOT seen in Pre Admission Testing Consults Requested none Proposed Anesthesia Risk / Benefits Reviewed With: PT / POA / Parent / Guardian, Accepts Plan and Informed Consent Obtained History Surgery Operation Date: 01/07/24 10:30 Proposed Procedures p Left Hip hemiarthoplasty - Silas Sandoval, DO Height/Weight Height: 5 ft 7 in Weight: 73.8 kg Allergies Allergy/AdvReac Type Severity Reaction Status Date / Time Opioids - Morphine Analogues AdvReac Severe Confusion/Agitation Verified 01/06/24 23:38 with ALL NARCOTICS Opioids-Meperidine and AdvReac Severe Confusion/Agitation Verified 01/06/24 23:38 Related with ALL NARCOTICS Opioids-Methadone and Related AdvReac Severe Confusion/Agitation Verified 01/06/24 23:38 with ALL NARCOTICS glycopyrrolate AdvReac Intermediate frequent, Verified 01/06/24 20:49 difficulty urinating, & dribbling tramadol AdvReac Intermediate Confusion Verified 01/06/24 20:49 Medications Home Medications Medication Instructions Recorded Confirmed Last Taken acetaminophen 500 mg tablet 1,000 mg PO BID PRN Pain 02/09/18 01/06/24 11/04/22 (Acetaminophen Extra Strength) khgzzzah-bhycmzxe-zckew acid 400 1 tab PO Q OTHER DAY 07/15/21 01/06/24 01/06/24 mcg-vit K 20 mcg-lycop 300 mcg tablet (One-A-Day Men's Multivitamin) aspirin 81 mg tablet,delayed 81 mg PO QAM 11/01/22 01/06/24 01/06/24 release cholecalciferol (vitamin D3) 50 50 mcg PO Q OTHER DAY 12/08/22 01/06/24 01/06/24 mcg (2,000 unit) capsule carbidopa 25 mg-levodopa 100 mg 0.5 tab PO TID #90 tabs 07/19/23 01/06/24 01/06/24 17:00 tablet atorvastatin 40 mg tablet 40 mg PO DAILY #90 tabs 10/31/23 01/06/24 01/06/24 warfarin 2 mg tablet 2 mg PO QAM 12/19/23 01/06/24 01/06/24 clotrimazole-betamethasone 1 1 applic topical BID PRN Skin 01/06/24 01/06/24 Unknown %-0.05 % topical cream Irritation pantoprazole 40 mg tablet,delayed 40 mg PO HS 01/06/24 01/06/24 01/05/24 release Active Medications Generic Name Dose Route Start Last Admin Trade Name Codyq PRN Reason Stop Dose Admin Atorvastatin Calcium 40 mg 01/07/24 09:00 01/07/24 08:06 Atorvastatin 40 Mg Tab PO 02/06/24 08:59 40 mg DAILY DARION Administration Carbidopa/Levodopa 0.5 tab 01/07/24 09:00 01/07/24 08:05 Carbidopa/Levodopa 25/100mg Tab PO 02/06/24 08:59 0.5 tab TID DARION Administration Pantoprazole Sodium 40 mg/ 10 mls @ 5 mls/min 01/07/24 11:00 01/07/24 09:50 Syringe IV 02/06/24 10:59 5 mls/min DAILY@1100 DARION Administration Lactated Ringer's 1,000 mls @ 80 mls/hr 01/06/24 23:00 01/07/24 09:50 Lr IV 02/05/24 22:59 0 mls/hr .[id number] DARION Infusion Acetaminophen 1,000 mg in 100 mls @ 400 mls/hr 01/07/24 00:30 01/07/24 08:22 Ofirmev IV 01/10/24 00:29 Infused Q8H PRN Infusion Pain or Fever Protocol NPO Date Last Intake of Fluids: 01/07/24 Time Last Intake of Fluids: 08:30 Last Intake of Fluids Comment: sips with meds Past Medical History Medical History Hx of gout Stercoral colitis Hx of colonic polyps Dysphagia DUE TO PARKINSONS History of COVID-19 04/2022- CONGESTION, STEEL, FATIGUE, RESOLVED Exercise / Class Metabolic Activity II 4-5 Yardwork/Stairs/Walk up hill Past Family History Family History Other No family history of bleeding disorder Denies family history of Ovarian cancer Prostate cancer Myocardial infarction Breast cancer Colorectal cancer Past Surgical History Surgical History S/P TURP (02/2011) Hx of vasectomy History of colonoscopy History of tooth extraction upper teeth History of blepharoplasty (03/2007) L History of bilateral cataract extraction Past Anesthesia History No Hx of Anesthesia Complications and No Family Hx of Anesthesia Complications History of PONV No Hx of PONV and No Hx of Motion Sickness Social History Smoking Status: Former smoker tobacco type: cigarettes Smoking cigarettes per day: QUIT WHEN HE WAS IN HIS EARLY 20'S Do You Dip or Chew Tobacco: No Hx Alcohol Use: Yes Alcohol type: wine alcohol intake frequency: a few times a month Hx Substance Use: No substance use type: does not use Physical Exam Vital Signs Last Vital Signs Temp 36.7 C 01/07/24 08:27 Pulse 61 01/07/24 08:27 Resp 20 01/07/24 08:27 BP 170/75 H 01/07/24 08:27 Pulse Ox 94 01/07/24 08:27 O2 Del Method Room Air 01/07/24 08:27 O2 Flow Rate 0 01/07/24 00:13 ENMT Mouth: + poor dentition (edentulous top. 6 central teeth remaining bottom. none loose) Thyromental Distance: > or= 3.5 Finger Breadths Mallampati Class: II Neck normal visual inspection Respiratory normal respiratory effort Auscultation: lungs clear to auscultation bilaterally Cardiovascular Rate/Rhythm: regular rate and regular rhythm Neurologic mild tremor Psychiatric Orientation: alert Testing Laboratory Results 01/07/24 06:23 01/07/24 06:23 PT 17.0 Seconds (9.0-12.0) H 01/07/24 06:23 INR 1.6 (0.9-1.1) H 01/07/24 06:23 Urine Color Yellow 01/06/24 20:54 Urine Appearance Clear (Clear) 01/06/24 20:54 Urine pH 6.5 (4.5-7.5) 01/06/24 20:54 Ur Specific Semora 1.010 (1.000-1.030) 01/06/24 20:54 Urine Protein Negative (Negative) 01/06/24 20:54 Urine Glucose (UA) Trace (Negative) H 01/06/24 20:54 Urine Ketones Negative (Negative) 01/06/24 20:54 Urine Nitrite Negative (Negative) 01/06/24 20:54 Ur Leukocyte Esterase Negative (Negative) 01/06/24 20:54
--- NOTE | 2024-01-07 13:07 | Operative Report ---
PG Post Operative Report Pre & Post Diagnosis Operation Date: 01/07/24 10:30 Pre-Op Diagnosis: Displaced left femoral neck fracture Post-Op Diagnosis: Displaced left femoral neck fracture I identified the patient and participated in the time-out.: Yes Procedure Operation Date: 01/07/24 10:30 Actual Procedures p Left Hip hemiarthoplasty(Left) - Silas Sandoval DO Surgeon Silas Sandoval DO [employer] Silas Barrientos PA-C Estimated Blood Loss 250 Findings Consistent with Post-Op Diagnosis Specimens Left femoral head Description of Procedure Implants used: I used a Oliverio echo size 11 cemented femoral stem with a 51 mm shell and a 28 mm head with a +3 neck On January 07, 2024 Sunil was brought down from his patient room to the preoperative holding area. The operative extremity identified and signed. He was given a preoperative antibiotic. Resting back the operating room and placed under general anesthesia on the hospital bed. He was then transferred to a table. The left leg was brought out to a purist leg positioner. The left hip was then prepped and draped in sterile fashion. A timeout was done. The patient and the operative extremity was properly identified. An anterior approach was used. Dissection was taken down through the fascia. The rectus was retracted medially and the tensor fascia was retracted laterally. The capsule was then exposed. The capsule was then incised and tagged for later repair. The femoral neck was recut. The femoral head was then removed. The acetabular was then exposed. Time was spent removing any remnants of bone or parts of ligament from the acetabulum. The acetabular cartilage looked okay. The femoral head measured to be a size 51 mm. The femoral neck was then exposed. Sequential broaching up to a size 11 broach was done. A standard femoral neck and a 28 mm +3 head with a 51 mm shell was then impacted into place. The hip was then reduced. Fluoroscopic images showed good alignment of the hip and alignment of the prosthesis. The hip was then dislocated. The trials were then removed. The final size 11 echo stem was then cemented in place with Palacos cement. Once cement had dried a 28 mm head with a +3 neck was then snapped into a 51 mm shell. The head was then impacted onto the femoral neck. The bipolar was then reduced. Final fluoroscopic images showed anatomic alignment. The wound was then irrigated. The capsule was then closed with #1 Vicryl suture. Hemostasis was obtained. The fascia was closed with PDS suture. Skin was closed with 2-0 Vicryl and sebastian. He was then placed in a Silverlon dressing. He was then extubated and transferred back to a hospital bed. He was taken to the postanesthesia care unit in stable condition. He tolerated the procedure well. Silas Barrientos PA-C, was present for the entire procedure. He was critical for patient positioning, prepping, draping, retraction exposure, wound closure and a pplication of sterile dressing. I attest to the content of the Intraoperative Record and any orders documented therein. Any exceptions are noted below.
--- NOTE | 2024-01-07 13:09 | Fluoroscopy Report ---
FL hip LT 1V CLINICAL HISTORY: LT ANTERIOR HIP COMPARISON STUDY: Pelvis and left hip radiographs January 06, 2024. FLUOROSCOPY TIME: 12 seconds. Ka, r: 1.2303 mGy FLUOROSCOPIC IMAGES: 1 FINDINGS: Fluoroscopy was provided during total anterior left hip arthroplasty. Hardware appears inta ct. There are no periprosthetic fractures. No unexpected radiopaque foreign bodies. IMPRESSION: Fluoroscopy provided during anterior total left hip arthroplasty. ACT 112: Negative or not required by law. Electronically signed by: Maikol Dover M.D. 01/07/2024 1:07 PM
[2024-01-07] MEDS: ROPIVACAINE 0.5% HCL/PF 246 MG, Ketorolac (*for OR use only*) 30 MG, EPINEPHrine 30MG/3... INFIL SCH (14:32)
--- NOTE | 2024-01-07 14:34 | Anesthesiology Progress Note ---
Date of Service January 07, 2024 Anesthesia Post Procedure Vital Signs Vital Signs: Temp Pulse Pulse Pulse Resp BP BP 01/07/24 14:12 35.8 C L 64 18 125/68 01/07/24 13:55 36.4 C L 65 16 125/60 01/07/24 13:45 63 16 128/58 L 01/07/24 13:35 76 16 121/52 L 01/07/24 13:25 79 16 138/60 01/07/24 13:15 36.4 C L 68 18 153/60 H 01/07/24 08:27 36.7 C 61 20 170/75 H 01/07/24 08:00 55 L 01/07/24 03:05 36.3 C L 55 L 18 144/62 H 01/07/24 00:46 36.4 C L 77 18 148/80 H 01/07/24 00:30 70 01/07/24 00:13 36.4 C L 77 16 148/80 H 01/07/24 00:13 01/06/24 23:58 37 C 69 18 122/50 L 01/06/24 23:45 01/06/24 23:00 37 C 75 17 122/50 L 01/06/24 22:32 77 19 166/70 H 01/06/24 22:30 36.5 C 78 18 166/70 H 01/06/24 20:17 84 01/06/24 20:10 36.6 C 84 14 189/79 H Pulse Ox Pulse Ox O2 Del Method O2 Del Method O2 Flow Rate O2 Flow Rate 01/07/24 14:12 97 Nasal Cannula 2 01/07/24 13:55 96 Nasal Cannula 2 01/07/24 13:45 96 Nasal Cannula 2 01/07/24 13:35 96 Oxymask 2 01/07/24 13:25 98 Oxymask 4 01/07/24 13:15 99 Oxymask 6 01/07/24 08:27 94 Room Air 01/07/24 08:00 01/07/24 03:05 95 Room Air 01/07/24 00:46 94 Room Air 01/07/24 00:30 01/07/24 00:13 94 Room Air 01/07/24 00:13 96 Room Air 0 01/06/24 23:58 94 Room Air 08/31/24 23:45 95 Room Air 01/06/24 23:00 95 Room Air 01/06/24 22:32 95 Room Air 01/06/24 22:30 96 Room Air 01/06/24 20:17 01/06/24 20:10 95 Room Air Pain Intensity Left Hip: Pain Intensity: 5 Transfer of Care Handoff Completed per policy Notes Mental Status: alert / awake / arousable Patient Amnestic to Procedure: Yes Nausea / Vomiting: adequately controlled Pain: adequately controlled Airway Patency, RR, SpO2: stable & adequate BP & HR: stable & adequate Hydration State: stable & adequate Anesthetic Complications: no major complications apparent
--- NOTE | 2024-01-07 14:35 | Electrocardiogram Report ---
Test Reason : Blood Pressure : */* mmHG Vent. Rate : 59 BPM Atrial Rate : 59 BPM P-R Int : 182 ms QRS Dur : 84 ms QT Int : 426 ms P-R-T Axes : 59 32 47 degrees QTcB Int : 421 ms Sinus bradycardia Otherwise normal ECG When compared with ECG of 06-Jan-2024 20:51, Premature ventricular complexes are no longer Present Confirmed by Zay Alvares ([id number]) on 01/07/2024 2:34:35 PM Referred By: REFERRED SELF Confirmed By: Zay Alvares
--- NOTE | 2024-01-07 14:39 | XRay Report ---
XR hip LT min 2V CLINICAL HISTORY: Post-Operative implant position COMPARISON: Left hip and pelvis radiographs January 06, 2024. FINDINGS: Alignment of the left hip arthroplasty is anatomic. There is no periprosthetic fracture. N o unexpected radiopaque foreign bodies. There are skin sebastian. IMPRESSION: Expected findings following left hip arthroplasty. ACT 112: Negative or not required by law. Electronically signed by: Maikol Dover M.D. 01/07/2024 2:38 PM
[2024-01-07] MEDS: WARFARIN SOD 2 MG TAB PO SCH (18:33)
[2024-01-07] MEDS ORDERED: PANTOprazole 40 MG TAB PO SCH (21:00)
[2024-01-08 06:35] LABS: Basophils # (auto) 0.03 K/uL (0.00-0.20); Basophils % (auto) 0.2 %; Eosinophils # (auto) 0.01 K/uL (0.00-0.50); Eosinophils % (auto) 0.1 %; Hematocrit (blood only) 25.9 % (42.0-52.0); Hemoglobin 8.8 g/dl (14.0-18.0); Immature Granulocytes # (auto) 0.06 K/uL (0.01-0.20); Immature Granulocytes % (auto) 0.5 %; Lymphocytes # (auto) 1.51 K/uL (1.20-3.40); Lymphocytes % (auto) 12.5 %; Mean Corpuscular Hemoglobin 30.8 pg (25.0-34.0); Mean Corpuscular Volume 90.6 fL (80.0-100.0); Mean Platelet Volume 9.7 fL (9.4-12.4); Monocytes # (auto) 0.98 K/uL (0.11-0.59); Monocytes % (auto) 8.1 %; Neutrophils # (auto) 9.48 K/uL (1.40-6.50); Neutrophils % (auto) 78.6 %; Platelet Count 152 K/uL (130-400); RDW Coefficient of Variation 13.9 % (11.5-14.5); RDW Standard Deviation 46.5 fL (36.4-46.3); Red Blood Count 2.86 M/uL (4.70-6.10); White Blood Count 12.07 K/ul (4.8-10.8)
[2024-01-08 07:10] LABS: Albumin Level 3.5 gm/dl (3.4-5.0); BUN Creatinine Ratio 18.8 (10-20); Creatinine Clr Calc Pharmacy 40.8 ml/min; Est GFR (African American) 64.1 ml/min; Est GFR (Non-African American) 55.3 ml/min; Magnesium 1.8 mg/dl (1.7-2.4); Phosphorus 3.1 mg/dl (2.5-4.9); Potassium 4.4 mmol/L (3.5-5.1)
[2024-01-08 07:12] LABS: INR 2.3 (0.9-1.1); Prothrombin Time 23.5 Seconds (9.0-12.0)
[2024-01-08] MEDS: CHOLECALCIFEROL 25 MCG (1000 UNITS) TAB PO SCH (08:23)
--- NOTE | 2024-01-08 09:24 | Orthopedic Progress Note ---
Date of Service January 08, 2024 Assessment & Plan (1) Closed left hip fracture: Overall he seems to be doing fairly well. He is not having too much pain in the left hip. He will be seen by physical therapy today for ambulation and range of motion exercises. He can be weightbearing as tolerated on the left hip. He is on Coumadin for DVT prophylaxis. He is orthopedically stable for discharge when medically ready. Full orthopedic discharge instructions were placed in the discharge summary. Please contact me with any further assistance. Dana Barber was seen and examined at bedside this morning. Overall is doing fairly well. He is not having too much pain in the left hip. He was having a little difficulty putting weight on it last night to go to the bathroom. He has no other complaints.. Review of Systems All systems reviewed & are unremarkable except as noted in HPI & below. Physical Exam On physical examination of the left hip, the dressing is clean and dry. His leg is out full extension. He has active dorsiflexion plantarflexion of his left ankle.. Results & Data Results & Data Laboratory Results . Diagnostic Findings . PG Care Time/CCT Total # of Minutes Spent Total Time Spent with Patient: Total time spent is greater than 50% in coordination of care (as documented) at patient's floor/unit and/or counseling patient: Coding Level of Care Code 60769 Post Operative Follow-Up Diagnoses Closed left hip fracture S72.002A
--- NOTE | 2024-01-08 09:53 | Hospitalist Progress Note ---
Date of Service January 08, 2024 Assessment & Plan (1) Closed left hip fracture: (2) Ambulatory dysfunction: (3) Memory impairment: (4) Esophageal dysmotility: (5) Hypertension: (6) History of deep vein thrombosis: (7) Monoclonal gammopathy of undetermined significance: (8) Parkinsons disease: (9) Hyperlipidemia: (10) Dysphonia: (11) Status post carotid surgery: (12) Stroke-like symptoms: Plan Closed left hip fracture- - 2/2 mechanical fall - s/p left hip hemiarthroplasty (01/06) - hold aspirin - Family reports patient had Brilinta stopped 2 weeks ago, on a planned basis, which was 1 year after his CVA - Patient is intolerant of any narcotic medications - Acetaminophen 1 g IV every 8 hours as needed for mild pain or fever - IVF discontinued - ortho on board -Patient is on daily PPI -hemoglobin stable on 01/07 History of DVT- - cleared by ortho to resume warfarin tonight History of CVA- - Status post right CEA and left CEA - Temporarily hold aspirin as noted Parkinson's- - Continue carbidopa levodopa Hyperlipidemia- - Resume atorvastatin post surgery GERD- - Change pantoprazole from oral to IV Admission and Anticipated Discharge Date Admission Date: January 06, 2024 Subjective Patient reports no new symptoms. Patient states his hip pain is tolerable. His son is at bedside. Review of Systems Review of Systems: All systems reviewed & are unremarkable except as noted in HPI & below Physical Exam Physical Exam: Gen: no acute distress HEENT: NC/AT, MMM CVS: s1s2 nl, RRR Lungs: CTAB Abd: soft, NT, nl BS Ext: no edema Psych: pleasant, cooperative Results & Data Results & Data Vital Signs (Past 12 Hours) Vital Signs Temp Pulse Pulse Resp BP Pulse Ox O2 Del Method 01/08/24 08:31 66 01/08/24 07:33 36.2 C L 71 19 166/72 H 95 Room Air 01/08/24 03:17 36.7 C 64 15 162/75 H 93 Room Air 01/07/24 23:47 36.4 C L 58 L 17 119/68 93 Room Air 01/07/24 23:00 64 PG Care Time/CCT Total # of Minutes Spent Total Time Spent with Patient: Total time spent is greater than 50% in coordination of care (as documented) at patient's floor/unit and/or counseling patient: Coding Level of Care Code 50231 SUB INP/OBS CARE MIN Diagnoses Closed left hip fracture S72.002A Ambulatory dysfunction R26.2 Memory impairment R41.3 Esophageal dysmotility K22.4 Hypertension I10 History of deep vein thrombosis Z86.718 Monoclonal gammopathy of undetermined significance D47.2 Parkinsons disease G20 Hyperlipidemia E78.5 Dysphonia R49.0 Status post carotid surgery Z98.890 Stroke-like symptoms R29.90
[2024-01-08] MEDS: POLYETHYLENE (MIRALAX) 17 GM PACK PO SCH (12:19)
--- NOTE | 2024-01-08 21:13 | Electrocardiogram Report ---
Test Reason : Blood Pressure : */* mmHG Vent. Rate : 82 BPM Atrial Rate : 82 BPM P-R Int : 170 ms QRS Dur : 84 ms QT Int : 370 ms P-R-T Axes : 50 24 38 degrees QTcB Int : 432 ms Sinus rhythm with occasional Premature ventricular complexes Otherwise normal ECG When compared with ECG of 07-Jan-2024 05:46, Premature ventricular complexes are now Present Confirmed by Stanislaw Hadley ([id number]) on 01/08/2024 9:13:01 PM Referred By: REFERRED SELF Confirmed By: Stanislaw Hadley
[2024-01-08] MEDS: ACETAMINOPHEN 500 MG TAB PO PRN (21:24)
[2024-01-09 05:24] LABS: Basophils # (auto) 0.02 K/uL (0.00-0.20); Basophils % (auto) 0.3 %; Eosinophils # (auto) 0.12 K/uL (0.00-0.50); Eosinophils % (auto) 1.5 %; Hematocrit (blood only) 23.5 % (42.0-52.0); Hemoglobin 7.8 g/dl (14.0-18.0); Immature Granulocytes # (auto) 0.03 K/uL (0.01-0.20); Immature Granulocytes % (auto) 0.4 %; Lymphocytes # (auto) 1.41 K/uL (1.20-3.40); Lymphocytes % (auto) 17.6 %; Mean Corpuscular Hemoglobin 30.5 pg (25.0-34.0); Mean Corpuscular Hgb Conc 33.2 g/dL (32.0-36.0); Mean Corpuscular Volume 91.8 fL (80.0-100.0); Mean Platelet Volume 10.1 fL (9.4-12.4); Monocytes # (auto) 0.78 K/uL (0.11-0.59); Monocytes % (auto) 9.8 %; Neutrophils # (auto) 5.64 K/uL (1.40-6.50); Neutrophils % (auto) 70.4 %; Platelet Count 139 K/uL (130-400); RDW Coefficient of Variation 14.1 % (11.5-14.5); RDW Standard Deviation 47.3 fL (36.4-46.3); Red Blood Count 2.56 M/uL (4.70-6.10)
[2024-01-09 05:37] LABS: Albumin Level 3.3 gm/dl (3.4-5.0); BUN Creatinine Ratio 19.2 (10-20); Calcium 8.7 mg/dl (8.6-10.3); Creatinine Clr Calc Pharmacy 31.6 ml/min; Est GFR (African American) 47.1 ml/min; Est GFR (Non-African American) 40.7 ml/min; Magnesium 1.8 mg/dl (1.7-2.4); Phosphorus 2.9 mg/dl (2.5-4.9); Potassium 4.2 mmol/L (3.5-5.1)
[2024-01-09 05:47] LABS: INR 3.2 (0.9-1.1); Prothrombin Time 31.2 Seconds (9.0-12.0)
[2024-01-09 06:15] LABS: Echinocytes 1+; Polychromasia 1+
--- NOTE | 2024-01-09 16:50 | Hospitalist Progress Note ---
Date of Service January 09, 2024 Assessment & Plan (1) Closed left hip fracture: (2) Ambulatory dysfunction: (3) Memory impairment: (4) Esophageal dysmotility: (5) Hypertension: (6) History of deep vein thrombosis: (7) Monoclonal gammopathy of undetermined significance: (8) Parkinsons disease: (9) Hyperlipidemia: (10) Dysphonia: (11) Status post carotid surgery: (12) Stroke-like symptoms: Plan Closed left hip fracture- - 2/2 mechanical fall - s/p left hip hemiarthroplasty (01/06) - hold aspirin - Family reports patient had Brilinta stopped 2 weeks ago, on a planned basis, which was 1 year after his CVA - Patient is intolerant of any narcotic medications - Acetaminophen 1 g IV every 8 hours as needed for mild pain or fever - resumed IVF - ortho on board -Patient is on daily PPI -hemoglobin dropped to 7.8 will repeat hemoglobin in PM: 8.1 History of DVT- - cleared by ortho to resume warfarin tonight History of CVA- - Status post right CEA and left CEA - Temporarily hold aspirin as noted Parkinson's- - Continue carbidopa levodopa Hyperlipidemia- - Resume atorvastatin post surgery GERD- - Change pantoprazole from oral to IV Admission and Anticipated Discharge Date Admission Date: January 06, 2024 Subjective Patient reports no new symptoms. Review of Systems Review of Systems: All systems reviewed & are unremarkable except as noted in HPI & below Physical Exam Physical Exam: Gen: no acute distress HEENT: NC/AT, MMM CVS: s1s2 nl, RRR Lungs: CTAB Abd: soft, NT, nl BS Ext: no edema Psych: pleasant, cooperative Results & Data Results & Data Vital Signs (Past 12 Hours) Vital Signs Temp Pulse Pulse Resp BP Pulse Ox O2 Del Method 01/09/24 15:37 36.6 C 70 19 122/71 93 Room Air 01/09/24 14:24 75 01/09/24 11:07 36.3 C L 70 19 115/65 97 Room Air 01/09/24 07:38 36.5 C 73 19 133/72 93 Room Air 01/09/24 07:37 78 PG Care Time/CCT Total # of Minutes Spent Total Time Spent with Patient: Total time spent is greater than 50% in coordination of care (as documented) at patient's floor/unit and/or counseling patient: Coding Level of Care Code 03825 SUB INP/OBS CARE 35MIN Diagnoses Closed left hip fracture S72.002A Ambulatory dysfunction R26.2 Memory impairment R41.3 Esophageal dysmotility K22.4 Hypertension I10 History of deep vein thrombosis Z86.718 Monoclonal gammopathy of undetermined significance D47.2 Parkinsons disease G20 Hyperlipidemia E78.5 Dysphonia R49.0 Status post carotid surgery Z98.890 Stroke-like symptoms R29.90
[2024-01-09] MEDS: LACTATED RINGER'S 1,000 ML IV SCH (18:06)
[2024-01-09 18:31] LABS: Hematocrit (blood only) 23.9 % (42.0-52.0); Hemoglobin 8.1 g/dl (14.0-18.0)
[2024-01-09 18:44] LABS: Creatinine Clr Calc Pharmacy 32.5 ml/min; Est GFR (African American) 48.7 ml/min
[2024-01-09] MEDS: ACETAMINOPHEN 325 MG TAB PO SCH (20:47)
[2024-01-09 23:22] VITALS: O2SAT 97
[2024-01-10 06:22] LABS: Hematocrit (blood only) 22.6 % (42.0-52.0); Hemoglobin 7.4 g/dl (14.0-18.0); Mean Corpuscular Hemoglobin 30.3 pg (25.0-34.0); Mean Corpuscular Hgb Conc 32.7 g/dL (32.0-36.0); Mean Corpuscular Volume 92.6 fL (80.0-100.0); Platelet Count 149 K/uL (130-400); RDW Coefficient of Variation 14.4 % (11.5-14.5); RDW Standard Deviation 48.7 fL (36.4-46.3); Red Blood Count 2.44 M/uL (4.70-6.10); White Blood Count 7.74 K/ul (4.8-10.8)
[2024-01-10 06:35] LABS: BUN Creatinine Ratio 19.8 (10-20); Calcium 8.6 mg/dl (8.6-10.3); Creatinine Clr Calc Pharmacy 39.5 ml/min; Est GFR (African American) 61.6 ml/min; Est GFR (Non-African American) 53.1 ml/min; Potassium 4.3 mmol/L (3.5-5.1)
[2024-01-10 06:43] LABS: INR 2.5 (0.9-1.1); Prothrombin Time 25.1 Seconds (9.0-12.0)
[2024-01-10 07:29] VITALS: RESP 18; TEMP 98.1
--- NOTE | 2024-01-10 11:19 | Fluoroscopy Report ---
FL video swallow CLINICAL HISTORY: r/o aspiration TECHNIQUE: Video fluoroscopy of the pharyngeal region was performed as barium mixtures of varying con sistencies were administered to the patient by the speech pathologist. A formal esophagram was not pe rformed. Comparison: None available at the time of this dictation. FINDINGS: Total fluoroscopy time: 1.53 minutes. Radiation dose: 12.8 mGy. Trace aspiration was seen with sequential swallows of thin barium. There was no laryngeal vestibular penetration or disha tracheal aspiration. Pooling of barium was noted in the bilateral piriform sinus es and valleculae. Retention was seen in the esophagus. IMPRESSION: Trace aspiration was seen with thin barium. Please see the speech pathology report for further details. ACT 112: Negative or not required by law. Electronically signed by: aBrt Salinas M.D. 01/10/2024 11:18 AM
--- NOTE | 2024-01-10 11:44 | Discharge Summary ---
Discharge Summary Date of Service January 10, 2024 Principal Dx & Hospital Course #1 = Principal Diagnosis (1) Closed left hip fracture: (2) Ambulatory dysfunction: (3) Memory impairment: (4) Esophageal dysmotility: (5) Hypertension: (6) History of deep vein thrombosis: (7) Monoclonal gammopathy of undetermined significance: (8) Parkinsons disease: (9) Hyperlipidemia: (10) Dysphonia: (11) Status post carotid surgery: (12) Stroke-like symptoms: Plan Closed left hip fracture- - 2/ mechanical fall - s/p left hip hemiarthroplasty (01/06) - held aspirin - Family reports patient had Brilinta stopped 2 weeks ago, on a planned basis, which was 1 year after his CVA - Patient is intolerant of any narcotic medications - Acetaminophen 1 g IV every 8 hours as needed for mild pain or fever - ortho on board -Patient is on daily PPI -hemoglobin dropped to 7.4 Acute blood loss anemia Post op hemoglobin: much lower than prior to surgery. Obtain ct abd/pelvis to search for hematoma. This was negative. Patient will be discharged to SNF as hemoglobin appears to be plateauing. Also bed will not be available tomorrow, and my plan would be to recheck hemoglobin on 01/10 If level is worse, patient can return to the hospital. History of DVT- - will hold warfarin due to anemia History of CVA- - Status post right CEA and left CEA - Temporarily hold aspirin as noted Parkinson's- - Continue carbidopa levodopa Hyperlipidemia- - Resume atorvastatin post surgery GERD- - resume pantoprazole. Son at bedside and agreeable to plan. Admission HPI Per Admitting Provider The patient is an 88-year-old male with a past medical history including memory impairment, lumbar radiculopathy, gout, LPRD, esophageal dysmotility, parkinsonism, hypertension, internal carotid artery stent, history of DVT, MGUS, BPH with LUTS, Higgins's esophagus and history of squamous cell carcinoma. The patient reports he was walking along, tripped over a carpet, landed on his left hip, and developed immediate pain and decreased ability to bear weight and ambulate. X-rays in the emergency department revealed a closed left hip fracture. Discharge Exam Gen: no acute distress HEENT: NC/AT, MMM CVS: s1s2 nl, RRR Lungs: CTAB Abd: soft, NT, nl BS Ext: no edema Psych: pleasant, cooperative Discharge Plan Discharge Items Patient Disposition: Transfer Group Home Fac Reason For Visit: CLOSED LEFT HIP FRACTURE, PVC'S Discharge Diagnosis: closed hip fracture Activity: Resume your previous activity Non-emergency contact: Primary Care Provider Call non-emergency contact if: you have any medication questions Follow-up/Referrals: Elli Chung DO [Primary Care Provider] - Diet: Regular Diet Texture: Easy to Chew Addtl Attending Provider Instructions: Recheck hematocrit and hemoglobin tomorrow and Monday. PCP folllowup in 1-2 weeks Addtl Drier Tender Provider Instructions: ORTHOPEDIC INSTRUCTIONS Hip Hemiarthroplasty Activity and Therapy Recommendations: 1. You were shown a series of exercises in the hospital. Do these exercises three times each day if you are able. 2. Get up and walk several times each day if you are capable. Make sure you have assistance is needed. For the first four weeks, try not to stand or walk for more than one hour at a time. If you do stand or walk for more than one hour, you will not hurt anything, but your leg will likely swell. 3. As you feel comfortable, you may change from the walker or crutches to a cane and then to independent walking if you are able. Please be safe. Medications: 1. Narcotic You will likely be sent from the hospital with the narcotic pain medication that worked best throughout your stay. 2. Continue your Coumadin as prescribed. 3. Other medications may be given for specific circumstances. If you have any questions, please call the office at [phone]. 4. Resume previous home medications unless otherwise instructed TEDs/Elastic Stockings: The white elastic stockings help limit swelling and prevent blood clots from forming in your legs. The more you wear them, the more they work. Wear them for six weeks. Dressing Care: Leave the Silverlon dressing in place for 7 days. After 7 days you may remove the dressing. If the incision is not draining then you may leave the sebastian open to air. If there is a little bit of drainage or if the sebastian are getting stuck on your clothing then cover the incision with a dry dressing. The sebastian will be removed at your 2 week follow-up appointment. Showering: You may shower with the Silverlon dressing in place. Do not let the shower spray hit the dressing directly. Pat the Silverlon dressing dry. If the dressing becomes wet underneath, then simply remove the dressing. Keep the incision dry until you are 7 days out from the day of surgery. After 7 days you may remove the Silverlon dressing and shower with the sebastian exposed. Let soapy water run over the sebastian and pat them dry. Do not scrub or soak the incision. Things To Watch For: 1. Drainage from the incision site that occurs more than one week after your surgery. 2. Increased redness at the incision site. 3. Fever above 102 degrees Fahrenheit. 4. Unusual chest pain or shortness of breath. 5. Call [facility] at with any of the above problems Follow-Up Visit: Follow-up with Dr. Sandoval's PA (Silas Barrientos) 2-3 weeks after your day of surgery. He will remove your sebastian and answer any questions. If you have any additional questions or concerns, Dr Sandoval is usually in the office at the same time and will be available Please call the office to set up an appointment for a time that works for you. Pending Studies at Discharge: No Stand-Alone Forms: My [facility] Skilled Items Patient informed of condition?: Yes DNR: Yes Discharge Level of Care: Skilled Communicable Disease: No Discharge Prognosis: Stable Lines: None Urinary Catheter: No Medications and DC Order Prescriptions: New polyethylene glycol 3350 [Miralax] 17 gram Powder In Packet 17 g PO DAILY Qty: 14 0RF ferrous sulfate 325 mg (65 mg iron) tablet 325 mg PO MOWEFR Qty: 14 0RF Rx Instructions: 2 hours apart from taking carbidopa and levodopa Continued One-A-Day Men's Multivitamin 400-20-300 mcg tablet 1 tab PO Q OTHER DAY atorvastatin 40 mg tablet 40 mg PO DAILY Qty: 90 1RF carbidopa-levodopa 25-100 mg tablet 0.5 tab PO TID Qty: 90 1RF cholecalciferol (vitamin D3) 50 mcg (2,000 unit) capsule 50 mcg PO Q OTHER DAY pantoprazole 40 mg tablet,delayed release (DR/EC) 40 mg PO HS clotrimazole-betamethasone 1-0.05 % cream 1 applic topical BID PRN (Reason: Skin Irritation) Rx Instructions: Apply small amount to affected area twice daily x 14 days, then as needed Changed acetaminophen [Acetaminophen Extra Strength] 500 mg Tablet 1,000 mg PO QID Qty: 30 0RF Held aspirin 81 mg tablet,delayed release (DR/EC) 81 mg PO QAM Hold Instructions: Resume on 01/17/24. warfarin 2 mg tablet 2 mg PO QAM Hold Instructions: Resume on 01/17/24. Rx Instructions: 2mg daily per [facility] orally use as directed; Discharge Orders: Discharge Order (Routine); Ordered 01/10/24 Ordered By: Toñito Khan/Other Patient Handouts: After Hip Surgery- Getting Dressed, Hip Precautions, Hip Safety: Sleeping Positions, Hip Replace Sitting Safely, Hip Safety: Using the Toilet Admission Data Admit Date/Time: 01/06/24 23:04 Attending Provider: Toñito Delcid Admit Provider: Nilson Lewis Primary Care Provider: Elli Chung Other Providers: Nilson Lewis; Amy Childress; Savana Blackwell [facility] Other Interventions: Discharge Summary Assessment (RN) Last Done: 01/10/24 12:30 Hospital Stay Data Consultations 01/06/24 21:54 ED Decision to Admit Stat 01/07/24 00:13 Consult Anticoagulation Clinic Routine Procedures Performed Operation Date: 01/07/24 10:30 Actual Procedures p Left Hip hemiarthoplasty(Left) - Silas Sandoval DO Diagnostic Imagining Performed 01/06/24 20:22 CT head/brain wo con Stat 01/07/24 10:20 FL hip LT 1V Routine 01/10/24 07:51 CT abd pelvis wo con Routine 01/10/24 09:30 FL video swallow Routine Discharge Instructions Given to Patient (Per Discharging Provider) Recheck hematocrit and hemoglobin tomorrow and Monday. PCP folllowup in 1-2 weeks Total Time Total Time Spent Total Time Spent (In Minutes): 35 Coding Level of Care Code 38246 INP/OBS DISCH >30 MIN Diagnoses Closed left hip fracture S72.002A Ambulatory dysfunction R26.2 Memory impairment R41.3 Esophageal dysmotility K22.4 Hypertension I10 History of deep vein thrombosis Z86.718 Monoclonal gammopathy of undetermined significance D47.2 Parkinsons disease G20 Hyperlipidemia E78.5 Dysphonia R49.0 Status post carotid surgery Z98.890 Stroke-like symptoms R29.90
[2024-01-10 12:31] VITALS: BP 126/70; PULSE 65
--- NOTE | 2024-01-10 14:07 | CT Scan Report ---
CT abd pelvis wo con CLINICAL HISTORY: anema/ concern for hematoma TECHNIQUE: Helical axial images of the abdomen and pelvis were obtained. Automated dose lowering tech niques and/or adjustment according to patient size were utilized for this exam. This exam was perfor med without intravenous contrast. CT DOSE: 1274.03 mGy.cm COMPARISON: Comparison is made to CT abdomen pelvis 03/08/2023 FINDINGS: Lower chest: Bibasilar atelectasis versus scarring is seen. Trace left pleural effusion is seen. Car diomegaly is partially seen. Liver: Unremarkable. No focal lesions are seen. Gallbladder and biliary tree: No calcified gallstones. Normal caliber wall. No intra- or extrahepatic biliary ductal dilation. Pancreas: Fatty replacement of the pancreas is seen. Spleen: Unremarkable. Adrenals: Unremarkable. Kidneys and ureters: Right cyst is seen. Bladder: Santos catheter is seen. Reproductive organs: Unremarkable. Bowel: A hiatal hernia is seen. Diverticulosis is seen without diverticulitis. Lymph nodes Retroperitoneal: Unremarkable. Pelvic: Unremarkable. Mesenteric: Unremarkable. Peritoneum: Normal. Vessels: Atherosclerotic calcifications are seen. Abdominal wall: Bilateral fat-containing inguinal hernias are seen. Bones: Degenerative changes in the visualized spine. Left hip arthroplasty is seen. Old healed rib fr actures are seen. IMPRESSION: No acute abnormalities in particular no evidence of intra-abdominal hemorrhage. ACT 112: Negative or not required by law. Electronically signed by: Bart Salinas M.D. 01/10/2024 2:05 PM
== END 2024-01-10 13:23 | DRG 522 ==
LOC: ED 20:00 → SUATTDRO 23:04 → 4W 23:04
DX: K22.4 Dyskinesia of esophagus; Z79.01 Long term (current) use of anticoagulants; S72.145A Nondisplaced intertrochanteric fracture of left femur, initial encounter for closed fracture; K22.70 Barrett's esophagus without dysplasia; Z86.73 Personal history of transient ischemic attack (TIA), and cerebral infarction without residual deficits; Z87.891 Personal history of nicotine dependence; E78.5 Hyperlipidemia, unspecified; D62 Acute posthemorrhagic anemia; Z79.82 Long term (current) use of aspirin; D47.2 Monoclonal gammopathy; I10 Essential (primary) hypertension; W01.0XXA Fall on same level from slipping, tripping and stumbling without subsequent striking against object, initial encounter; Z88.5 Allergy status to narcotic agent; G20.C Parkinsonism, unspecified; Y92.013 Bedroom of single-family (private) house as the place of occurrence of the external cause; S72.002A Fracture of unspecified part of neck of left femur, initial encounter for closed fracture; R49.0 Dysphonia